=== PATIENT | female | born 1940 | race Two or more races ===

== ENCOUNTER 2024-04-04 16:23 | Inpatient (IN) | payer OTHER ==
[~2024-04-04] VITALS: Ht 152.4 cm; Wt 79.8 kg
[2024-04-04] MEDS: VANCOMYCIN 1GM/250ML KIT 250 ML IV ONE (02:00)
--- NOTE | 2024-04-04 16:35 | ED.PDOC ---
History of Present Illness HPI Comments This is an 83 year old female who comes in with chief complaint of blisters to the lower extremities. The patient was at [facility] where she underwent a cholecystectomy. The patient was then released on 03/25 shortly after she developed some leg swelling as well as blisters and redness to the lower extremities. She denies any chest pain but she does have a chronic cough. Has been no vomiting or diarrhea. The patient was transported to our facility by EMS Time Seen by MD: 16:25 Reviewed Notes: Nurses Notes, Medications, Allergies (No allergies to medications) Allergies: Coded Allergies: NO KNOWN ALLERGIES (Unverified , 04/04/24) Information Source: Patient, Emergency Med Personnel Mode of Arrival: EMS Severity: Moderate Timing: Days Duration: Since onset Prehospital treatment: Accucheck (170), [employer] Nozzle[employer] Associated signs and symptoms Cough with the leg swelling and redness Constitutional: denies: chills, diaphoresis, fatigue, fever, malaise, sweats, weakness, others EENTM: denies: blurred vision, double vision, ear bleeding, ear discharge, ear drainage, ear pain, ear ringing, eye pain, eye redness, hearing loss, mouth pain, mouth swelling, nasal discharge, nose bleeding, nose congestion, nose pain, photophobia, tearing, throat pain, throat swelling, voice changes, others Respiratory: denies: cough, hemoptysis, orthopnea, SOB at rest, shortness of breath, SOB with excertion, stridor, wheezing, others Cardiovascular: denies: chest pain, dizzy spells, diaphoresis, Dyspnea on exertion, edema, irregular heart beat, left arm pain, lightheadedness, palpitations, PND, syncope, others Gastrointestinal: denies: abdomen distended, abdominal pain, blood streaked bowels, constipated, diarrhea, dysphagia, difficulty swallowing, hematemesis, melena, nausea, poor appetite, poor fluid intake, rectal bleeding, rectal pain, vomiting, others Genitourinary: denies: abnormal vagina bleeding, burning, dyspareunia, dysuria, flank pain, frequency, hematuria, incontinence, pain, , vagina discharge, urgency, others Neurological: denies: dizziness, fainting, headache, left sided numbness, left sided weakness, numbness, paresthesia, pre-existing deficit, right sided numbness, right sided weakness, seizure, speech problems, tingling, tremors, weakness, others Musculoskeletal: reports: joint pain (b/l lower extermities); denies: back pain, gout, joint swelling, muscle pain, muscle stiffness, neck pain, others Integumetry: denies: bruises, change in color, change in hair/nails, dryness, laceration, lesions, lumps, rash, wounds, others Allergic/Immunocompromised: denies: Difficulty Healing, Frequent Infections, Hives, Itching, others Hematologic/Lymphatic: denies: anemia, blood clots, easy bleeding, easy b ruising, swollen glands, others Endocrine: denies: excessive hunger, excessive sweating, excessive thirst, excessive urination, flushing, intolerance to cold, intolerance to heat, unexplained weight gain, unexplained weight loss, others Psychiatric: denies: anxiety, bipolar disorder, depression, hopeless, panic disorder, schizophrenia, sleepless, suicidal, others All Other Systems: Reviewed and Negative Physical Exam General Appearance: Moderate Distress HEENT: Normal ENT Inspection, Pharynx Normal, TMs Normal Neck: Full Range of Motion, Non-Tender, Normal, Normal Inspection Respiratory: Chest Non-Tender, Lungs Clear, No Accessory Muscle Use, No Respiratory Distress, Normal Breath Sounds Cardiovascular: No Edema, No JVD, No Murmur, No Gallop, Normal Peripheral Pulses, Regular Rate/Rhythm Breast Exam: Deferred Gastrointestinal: No Organomegaly, Non Tender, No Pulsatile Mass, Normal Bowel Sounds, Soft Genitalia: Deferred Pelvic: Deferred Rectal: Deferred Extremities: No calf tenderness, Normal capillary refill, Normal inspection, Normal range of motion, Non-tender, No pedal edema Musculoskeletal : Apperance: Normal Neurologic: Alert, tufting machine fixer II-XII nml as Tested, No Motor Deficits, Normal Affect, Normal Mood, No Sensory Deficits Cerebellar Function: Normal Reflexes: Normal Skin: Dry, Normal Color, Warm Lymphatic: No Adenopathy Was a procedure done? Was a procedure done?: No EKG EKG : Pulse Rate (adult): 88 Watson: Normal Cardiac Rhythm: Afib Block: None ST: Nonsp Differential Dx Considerations may include: Cellulitis, acute on chronic diastolic heart failure, generalized weakness X-Ray, Labs, Meds, VS Vital Signs Date Time Temp Pulse Resp B/P (MAP) Pulse Ox O2 Delivery O2 Flow Rate FiO2 04/04/24 16:59 88 04/04/24 16:40 88 04/04/24 16:25 97.6 90 18 100/49 (66) 92 Lab Test 04/04/24 19:53 04/04/24 17:48 Range/Units Lactic Acid Level 2.2 *H 2.3 *H 0.4-2.0 mmol/L White Blood Count 13.5 H 4.4-10.8 10^3/uL Red Blood Count 4.38 4.0-5.20 10^6/uL Hemoglobin 11.9 L 12.2-16.2 g/dL Hematocrit 37.1 36.0-46.0 % Mean Corpuscular Volume 84.6 80.0-100.0 fL Mean Corpuscular Hemoglobin 27.1 L 28.0-32.0 pg Mean Corpuscular Hemoglobin Concent 32.0 32.0-36.0 g/dL Red Cell Distribution Width 18.5 H 11.8-14.3 % Platelet Count 410 140-450 10^3/uL Mean Platelet Volume 7.9 6.9-10.8 fL Neutrophils (%) (Auto) 92.7 H 37.0-80.0 % Lymphocytes (%) (Auto) 2.0 L 10.0-50.0 % Monocytes (%) (Auto) 4.6 0.0-12.0 % Eosinophils (%) (Auto) 0.3 0.0-7.0 % Basophils (%) (Auto) 0.4 0.0-2.0 % Neutrophils # (Auto) 12.5 H 1.6-8.6 10 ^3/uL Lymphocytes # (Auto) 0.3 L 0.4-5.4 10 ^3/uL Monocytes # (Auto) 0.6 0-1.3 10 ^3/uL Eosinophils # (Auto) 0 0-0.8 10 ^3/uL Basophils # (Auto) 0.1 0-0.2 10 ^3/uL Nucleated Red Blood Cells 0.2 % Erythrocyte Sedimentation Rate 18 0-20 mm/hr Sodium Level 135 L 136-145 mmol/L Potassium Level 5.0 3.5-5.1 mmol/L Chloride Level 93 L 98-107 mmol/L Carbon Dioxide Level 31 20-31 mmol/L Anion Gap 11 5-15 Blood Urea Nitrogen 91 *H 9-23 mg/dL Creatinine 1.87 H 0.550-1.02 mg/dL Glomerular Filtration Rate Calc 27 >90 mL/min BUN/Creatinine Ratio 48.7 H 10.0-20.0 Serum Glucose 145 H 74-106 mg/dL Calcium Level 9.1 8.7-10.4 mg/dL B-Type Natriuretic Peptide > 5000.00 0-100 pg/mL CHEST RADIOGRAPH IMPRESSION: Mild pulmonary vascular congestion with possible trace left-sided pleural effusion / atelectasis. Questionable tubular structure overlying the right mid lung zone versus th ickened fissure. The patient's BNP is greater than 5000 The patient's troponin level is within normal limits The lactic acid level remains above 2.2 The BUN is 91 the creatinine is 1.87 The patient was not hyperkalemic The patient was being admitted at this time The patient was given Lasix 40 mg IV push Images Reviewed?: Images reviewed and evaluated by me Time of 1ST Reevaluation: 21:30 Reevaluation 1ST: Unchanged Patient Education/Counseling: Diagnosis, Treatment, Prognosis Family Education/Counseling: No Family Present Departure 1 Departure Time of Disposition: 21:29 Impression: Primary Impression: Generalized weakness Additional Impressions: Cellulitis of lower extremity Qualified Codes: L03.119 - Cellulitis of unspecified part of limb Sepsis Qualified Codes: A41.9 - Sepsis, unspecified organism Disposition: ADMITTED INPATIENT Admit to: [facility] Condition: Fair Critical Care Note Critical Care Time?: Yes (45 min-critical care time only) Stability Stability form required: Yes Unstable for transfer: Telemetry monitoring (Telemetry monitoring required), ED Physician Assesment (Clinical assesment) Heart Score Heart Score: Heart Score Response (Comments) Value History N/A 0 EKG N/A 0 Age N/A 0 Risk Factors N/A 0 Troponin N/A 0 Total 0 I personally scribed for AIDAN PALMER MD ([email or web address]) on 04/04/24 at 16:59. Electronically submitted by Jerry Cyr ([employer]). I personally scribed for AIDAN PALMER MD ([email or web address]) on 04/04/24 at 17:01. Electronically submitted by Jerry Cyr ([employer]). IADAN PALMER MD Apr 04, 2024 16:35
--- NOTE | 2024-04-04 16:57 | DVH ---
CHEST RADIOGRAPH Indication: sob Technique: Single frontal view of the chest was obtained Comparison: None FINDINGS: Lines and Tubes: None Lungs: Mild interstitial prominence. No focal consolidation. Indistinctness of the left hemidiaphra gm. Appears to be a tubular structure overlying the right mid lung zone. No pneumothorax. Cardiomediastinal contours: Mild cardiomegaly with moderate atherosclerotic calcification and uncoili ng of the aorta. Bones: No acute osseous abnormality. IMPRESSION: Mild pulmonary vascular congestion with possible trace left-sided pleural effusion / atelectasis. Questionable tubular structure overlying the right mid lung zone versus thickened fissure.
[2024-04-04 18:14] LABS: Anion Gap 11 (5-15); Calcium 9.1 mg/dL (8.7-10.4); Carbon Dioxide 31 mmol/L (20-31)
[2024-04-04 18:19] LABS: BUN/Creatinine Ratio 48.7 (10.0-20.0)
[2024-04-04 18:23] LABS: Basophils # (auto) 0.1 10 ^3/uL (0-0.2); Basophils % (auto) 0.4 % (0.0-2.0); Eosinophils # (auto) 0 10 ^3/uL (0-0.8); Eosinophils % (auto) 0.3 % (0.0-7.0); Hematocrit 37.1 % (36.0-46.0); Hemoglobin 11.9 g/dL (12.2-16.2); Lymphocytes # (auto) 0.3 10 ^3/uL (0.4-5.4); Mean Corpuscular Hemoglobin 27.1 pg (28.0-32.0); Mean Corpuscular Volume 84.6 fL (80.0-100.0); Monocytes # (auto) 0.6 10 ^3/uL (0-1.3); Monocytes % (auto) 4.6 % (0.0-12.0); Neutrophils # (auto) 12.5 10 ^3/uL (1.6-8.6); Neutrophils % (auto) 92.7 % (37.0-80.0); Nucleated Red Blood Cells % 0.2 %; Platelet Count (auto) 410 10^3/uL (140-450); Red Blood Cells 4.38 10^6/uL (4.0-5.20); Red Cell Distribution Width 18.5 % (11.8-14.3); White Blood Cell 13.5 10^3/uL (4.4-10.8)
[2024-04-04 18:36] LABS: Chloride 93 mmol/L (98-107); Glucose 145 mg/dL (74-106); Sodium 135 mmol/L (136-145)
[2024-04-04 18:40] LABS: Lactic Acid w/Reflex 2.3 mmol/L (0.4-2.0)
[2024-04-04 18:41] LABS: Blood Urea Nitrogen 91 mg/dL (9-23)
--- NOTE | 2024-04-04 19:06 | ECG ---
[facility] Test Date: 2024-04-04 Test Time: 16:37:17 Pat Name: NABILA BAUMANN Department: ED Room: [facility] Gender: F [employer]: AMI : 1940 Requested By: AIDAN PALMER Order Number: [id number] Reading MD: Arnel Burnett Measurements Intervals [place] Rate: 88 P: 0 [place]: 0 QRS: 136 QRSD: 112 T: 108 QT: 387 QTc: 469 Interpretive Statements Right and left arm electrode reversal, interpretation assumes no reversal Atrial fibrillation Consider anterior infarct Nonspecific T abnormalities, lateral leads Electronically Signed On 04-05-2024 12:11:12 PST by Arnel Burnett Please click the below link to view image of tracing.
[2024-04-04 19:19] LABS: Erythrocyte Sedimentation Rate 18 mm/hr (0-20)
[2024-04-04] MEDS: cefTRIAXone 1GM/50ML D5W 50 ML IV ONE (22:51)
[2024-04-05] VITALS (8 sets, daily range): BP systolic 105–115; BP diastolic 41–70; PULSE 64–113; RESP 16–20; TEMP 97.5–98.6; O2SAT 85–97
[2024-04-05] MEDS: VANCOMYCIN 1GM/250ML KIT 250 ML IV ONE (02:00)
--- NOTE | 2024-04-05 02:12 | DVHHPRES ---
History of Present Illness Resident Creating Document: JOSEY LOPEZ RESIDENT Reason for Visit: B/L LE cellulitis History of Present Illness 83 YO Female with PMH of Afib presents with bilateral lower extremity swelling and blisters. Symptoms have been present for several days. Patient reports inability to walk for the past several days following a recent cholecystectomy. Patient also reports decreased appetite. Denies fever, cough, shortness of breath, abdominal pain, nausea, vomiting, or urinary/bowel issues. Patient mentions some burning sensation, possibly indicating an infection. No pain or weakness at rest, but reports pain and numbness upon palpation of the legs. Patient has a history of recent cholecystectomy due to gallbladder rupture with adhesions to liver or intestine. Currently has two abdominal drainage tubes in place, which the patient reports get "very full and wet." Cardiovascular: AFIB Past Surgical History Recent cholecystectomy Smoke: No ALCOHOL: none Drugs: None Past Social History Lives in home with son Review of Systems Review of Systems Review of Systems CONSTITUTIONAL: Denies weight loss, fever and chills. HEENT: Denies changes in vision and hearing. RESPIRATORY: Denies SOB and cough. CV: Denies palpitations and chest pain. GI: Denies abdominal pain, nausea, vomiting and diarrhea. : Denies dysuria and urinary frequency. MSK: Leg swelling with blisters, inability to walk, pain and numbness when leg is pressed, SKIN: Leg swelling with blisters, boils on legs NEUROLOGICAL: Denies headache Allergies: Coded Allergies: Erythromycin (Verified Allergy, Severe, 04/05/24) Medications Current Medications Medications Dose Ordered Sig/Darin Route Start Time Stop Time Status Last Admin Dose Admin Sodium Chloride 10 ml Q8HR IV 04/05/24 06:00 Enoxaparin Sodium 40 mg DAILY SC 04/05/24 10:00 Ceftriaxone Sodium 50 ml @ 100 mls/hr Q24H IV 04/05/24 21:00 Exam Vital Signs Vital Signs Date Time Temp Pulse Resp B/P (MAP) Pulse Ox O2 Delivery O2 Flow Rate FiO2 04/05/24 01:17 72 18 93 Room Air 04/05/24 01:17 97.5 113/71 (85) 97.5 Exam GENERAL: Not in acute distress. HEENT: EOMI, Moist mucous membranes. No scleral icterus. No cervical lymphadenopathy. LUNGS: Bilateral crackles on auscultation CARDIOVASCULAR: Regular rate and rhythm. No murmur. No JVD. ABDOMEN: J-tube present for drainage post-cholecystectomy surgery. Two drainage tubes noted in the abdomen. EXTREMITIES: No Leg swelling with blisters, tender on palpation, bilateral pedal edema 3+. SKIN: No rashes or lesions. Warm. NEUROLOGIC: Alert and oriented X3 Labs/Xrays Labs Test 04/04/24 19:53 04/04/24 17:48 Range/Units Lactic Acid Level 2.2 *H 0.4-2.0 mmol/L White Blood Count 13.5 H 4.4-10.8 10^3/uL Red Blood Count 4.38 4.0-5.20 10^6/uL Hemoglobin 11.9 L 12.2-16.2 g/dL Hematocrit 37.1 36.0-46.0 % Mean Corpuscular Volume 84.6 80.0-100.0 fL Mean Corpuscular Hemoglobin 27.1 L 28.0-32.0 pg Mean Corpuscular Hemoglobin Concent 32.0 32.0-36.0 g/dL Red Cell Distribution Width 18.5 H 11.8-14.3 % Platelet Count 410 140-450 10^3/uL Mean Platelet Volume 7.9 6.9-10.8 fL Neutrophils (%) (Auto) 92.7 H 37.0-80.0 % Lymphocytes (%) (Auto) 2.0 L 10.0-50.0 % Monocytes (%) (Auto) 4.6 0.0-12.0 % Eosinophils (%) (Auto) 0.3 0.0-7.0 % Basophils (%) (Auto) 0.4 0.0-2.0 % Neutrophils # (Auto) 12.5 H 1.6-8.6 10 ^3/uL Lymphocytes # (Auto) 0.3 L 0.4-5.4 10 ^3/uL Monocytes # (Auto) 0.6 0-1.3 10 ^3/uL Eosinophils # (Auto) 0 0-0.8 10 ^3/uL Basophils # (Auto) 0.1 0-0.2 10 ^3/uL Nucleated Red Blood Cells 0.2 % Erythrocyte Sedimentation Rate 18 0-20 mm/hr Sodium Level 135 L 136-145 mmol/L Potassium Level 5.0 3.5-5.1 mmol/L Chloride Level 93 L 98-107 mmol/L Carbon Dioxide Level 31 20-31 mmol/L Anion Gap 11 5-15 Blood Urea Nitrogen 91 *H 9-23 mg/dL Creatinine 1.87 H 0.550-1.02 mg/dL Glomerular Filtration Rate Calc 27 >90 mL/min BUN/Creatinine Ratio 48.7 H 10.0-20.0 Serum Glucose 145 H 74-106 mg/dL Calcium Level 9.1 8.7-10.4 mg/dL B-Type Natriuretic Peptide > 5000.00 0-100 pg/mL Assessment/Plan Assessment/Plan Assessment & Plan : # Bilateral Lower Extremity cellulitis with Blisters and Erosions # leukocytosis and lactic acidosis due to bilateral lower leg cellulitis - continue empiric antibiotic IV Rocephin, IV vancomycin - ordered blood culture # possible systolic/diastolic heart failure, new onset - BNP is > 5000 - bilateral pedal edema 3+ - CXR shows: Mild pulmonary vascular congestion with possible trace left-sided pleural effusion. - continue IV Lasix 40 mg daily - ordered echocardiogram # Post-Cholecystectomy Status due to acute cholecystitis - J-tube present for post-operative drainage. 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 Bautista Plan discussed with: Patient My Orders Orders - JOSEY LOPEZ RESIDENT Procedure Category Date Status Time Admit ADMIT 04/05/24 Transmitted 00:22 Allergies SILVA 04/05/24 In Process 00:22 Code Status CODE 04/05/24 Transmitted 00:22 2 Gm Sodium Diet DIET 04/05/24 Transmitted Breakfast Sodium Chloride Lock PHA 04/05/24 In Process (Saline Lock Ns) 06:00 Enoxaparin Sodium PHA 04/05/24 In Process (Lovenox) 10:00 Complete Blood Count LAB 04/05/24 Logged 04:00 Comprehensive LAB 04/05/24 Logged Metabolic Panel 04:00 Echo 2d Mode Cardiac US 04/05/24 Logged DOP 00:22 Lactic Acid W/ Reflex LAB 04/05/24 Logged Order 04:00 Ceftriaxone 1gm/50ml PHA 04/05/24 In Process D5w (Rocephin) 21:00 Date of Service: Apr 05, 2024 Billing Provider: CATIA BAUTISTA MD Common Visit Codes: [id number] INP/OBS CARE (HIGH) JOSEY LOPEZ RESIDENT Apr 05, 2024 02:12 CATIA BAUTISTA MD Apr 07, 2024 15:18
[2024-04-05] MEDS: FUROSEMIDE 40 MG/4 ML VIAL IV ONE (04:03)
[2024-04-05] MEDS: SODIUM CHLOR 0.9% PF (SALINE LOCK) 10ML VIAL/SYR IV SCH (06:04)
[2024-04-05] MEDS ORDERED: VANCOMYCIN PER PHARMACY 0 MG IV SCH ×2 (06:45→11:15)
[2024-04-05 08:21] LABS: Alanine Aminotransferase 53 U/L (7-40); Albumin 3.4 g/dL (3.2-4.8); Alkaline Phosphatase 132 U/L (46-116); Anion Gap 12 (5-15); Aspartate Aminotransferase 100 U/L (13-40); BUN/Creatinine Ratio 41.8 (10.0-20.0); Bilirubin, Total 0.8 mg/dL (0.2-1.0); Blood Urea Nitrogen 74 mg/dL (9-23); Calcium 9.4 mg/dL (8.7-10.4); Carbon Dioxide 29 mmol/L (20-31); Chloride 94 mmol/L (98-107); Glucose 84 mg/dL (74-106); Potassium 4.3 mmol/L (3.5-5.1); Sodium 135 mmol/L (136-145); Total Protein 6.3 g/dL (5.7-8.2)
[2024-04-05 08:33] LABS: Lactic Acid w/Reflex 2.1 mmol/L (0.4-2.0)
[2024-04-05] MEDS: ENOXAPARIN SOD 80 MG/0.8ML SYRINGE SC SCH (08:49)
[2024-04-05] MEDS: FUROSEMIDE 40 MG/4 ML VIAL IV SCH ×2 (08:50→18:36)
[2024-04-05] MEDS ORDERED: ENOXAPARIN SOD 40 MG/0.4 ML SYRINGE SC SCH (10:00)
[2024-04-05 10:10] LABS: Basophils # (auto) 0 10 ^3/uL (0-0.2); Basophils % (auto) 0.1 % (0.0-2.0); Eosinophils # (auto) 0 10 ^3/uL (0-0.8); Eosinophils % (auto) 0.3 % (0.0-7.0); Hematocrit 36.9 % (36.0-46.0); Hemoglobin 11.5 g/dL (12.2-16.2); Lymphocytes # (auto) 0.5 10 ^3/uL (0.4-5.4); Lymphocytes % (auto) 3.3 % (10.0-50.0); Mean Corpuscular Hemoglobin 26.6 pg (28.0-32.0); Mean Corpuscular Hgb Conc. 31.2 g/dL (32.0-36.0); Mean Corpuscular Volume 85.1 fL (80.0-100.0); Monocytes # (auto) 1.7 10 ^3/uL (0-1.3); Monocytes % (auto) 10.2 % (0.0-12.0); Neutrophils # (auto) 13.9 10 ^3/uL (1.6-8.6); Neutrophils % (auto) 86.1 % (37.0-80.0); Platelet Count (auto) 392 10^3/uL (140-450); Red Blood Cells 4.34 10^6/uL (4.0-5.20); Red Cell Distribution Width 18.8 % (11.8-14.3); White Blood Cell 16.1 10^3/uL (4.4-10.8)
[2024-04-05] MEDS ORDERED: BUDE0.253 IN (10:57)
[2024-04-05] MEDS ORDERED: MULT-1018 PO (10:57)
[2024-04-05] MEDS ORDERED: FURO40TA4 PO (10:57)
[2024-04-05] MEDS ORDERED: METO25TA93 PO (10:57)
[2024-04-05] MEDS ORDERED: ACET-1881 PO (10:57)
[2024-04-05] MEDS ORDERED: SODI650T PO (10:57)
[2024-04-05] MEDS ORDERED: APIX2.5T PO (10:57)
[2024-04-05] MEDS ORDERED: DAPA1TAB4 PO (10:57)
[2024-04-05] MEDS ORDERED: ALBUAER3 IN (10:57)
[2024-04-05] MEDS ORDERED: TIOT17SP IN (10:57)
[2024-04-05] MEDS ORDERED: SACU1TAB PO (10:57)
[2024-04-05] MEDS ORDERED: LEVO25TA6 PO (10:57)
[2024-04-05] MEDS ORDERED: DOCU-94 PO (10:57)
[2024-04-05] MEDS ORDERED: ROSU10TA16 PO (10:57)
[2024-04-05] MEDS ORDERED: PRED20TA2 PO (11:01)
[2024-04-05] MEDS ORDERED: FURO20TA3 PO (11:01)
[2024-04-05] MEDS ORDERED: MYC15TP TOP (11:01)
[2024-04-05] MEDS ORDERED: ATOR40TA52 PO (11:01)
[2024-04-05] MEDS ORDERED: FLUC200T50 PO (11:01)
--- NOTE | 2024-04-05 11:36 | DVHPNRES ---
Progress Note Date Seen: Apr 05, 2024 Resident Creating Document: ZANDER WARNER RESIDENT Medical Necessity Reason Pt with a Central, PICC or Fol: No Medical Necessity Reason Blistering condition on her legs and in the mouth Subjective Review of Systems This is an 83-year-old female with a with a past medical history of AFib recent history of cholecystitis status post cholecystectomy presented to the ED with bilateral lower extremity swelling and blisters and also in her mouth. Of the information was gotten from the son who was by the bedside. According to the son by the bedside, mother was admitted at [facility] on February 26, 2024 for cholecystitis status post cholecystectomy complicated by KENNY and other things and patient was finally discharged on March 25. Four days upon returning home, they noticed that patient started developing blistering lesions on her lower extremities. Blisters are painful on her lower extremities and also she says feel some bile on her mouth. Patient also reports decreased appetite. Denies fever, cough, shortness of breath, abdominal pain, nausea, vomiting, or urinary/bowel issues. Patient mentions some burning sensation, possibly indicating an infection. No pain or weakness at rest, but reports pain and numbness upon palpation of the legs. Patient denied any history any autoimmune disease or any history of disease or any family history of any autoimmune disease. Initial vitals in the ED revealed temperature of 97.6, Pulse: 90 RR:18 blood BP:100/49. WBC 13.5 --> 16.1 hemoglobin of 11.9 --> 11.5 platelets 410. Chemistry reveals sodium of 135 potassium of 5 years BUN of 91 creatinine of 1.87 GFR of 27 and hemoglobin A1c of 6.3 and lactic 2.3. Chest x-ray reveals Mild pulmonary vascular congestion with possible trace left-sided pleural effusion / atelectasis. Review of system Constitutional: Denies fever no chills no feeling of malaise HEENT: Denies headache, ear pain, ear discharges, conjunctivitis, But jones in swallowing, and blisters in mouth Cardiovascular: Denies chest pain, palpitation, orthopnea, PND, or pedal edema Respiratory: Denies shortness of breath, cough cough, sputum production, hemoptysis, GI: Denies abdominal pain, nausea, vomiting, diarrhea, hematemesis, hematochezia; has loss of appetite : Denies frequency, urgency, hematuria,No know history of chronic kidney disease Endocrine: Denies unintentional weight gain or weight loss, feeling of hot flashes, Tao: Denies easy bruising, bleeding disorders, epistaxis Musculoskeletal: Denies joint pains, muscle aches Psych: No evidence of depression, gato, suicidal ideation Objective vital signs Vital Sign Date Time Temp Pulse Resp B/P (MAP) Pulse Ox O2 Delivery O2 Flow Rate FiO2 04/05/24 08:56 97.6 95 20 115/41 (65) 90 97.6 04/05/24 07:40 Nasal Cannula* 2 28 Total Intake and Output 04/04/24 04/04/24 04/05/24 15:00 23:00 07:00 Intake Total 490 ml Output Total 400 ml Balance 90 ml medications Current Medications Medications Dose Ordered Sig/Darin Route Start Time Stop Time Status Last Admin Dose Admin Sodium Chloride 10 ml Q8HR IV 04/05/24 06:00 04/05/24 06:04 10 ML Ceftriaxone Sodium 50 ml @ 100 mls/hr Q24H IV 04/05/24 21:00 Furosemide 40 mg DAILY IV 04/05/24 10:00 04/05/24 08:50 40 MG Enoxaparin Sodium 80 mg DAILY SC 04/05/24 10:00 04/05/24 08:49 80 MG Vancomycin HCl 0 ml @ 0 mls/hr UD IV 04/05/24 06:45 Examination General Appearance: Alert, Oriented X3, Cooperative, mild-moderate distress HEENT: Atraumatic, PERRLA, EOMI, Tongue is red and buffy, blister on the left mucus membrane, dry blood on her lips. Respiratory: Clear to auscultation, Normal air movement Cardiovascular: Irregularly irregular rate and rhythm Abdominal: NO distention, no tenderness, bowel sounds present, no scars noted Extremities: pitting edema, in bed Skin: Tender blisters with erythematous base bilateral Neuro: unable to asses at this time Psych/Mental Status: Mental status NL, Mood NL laboratory and microbiology Laboratory Tests 04/05/24 07:18 Test 04/05/24 07:18 Range/Units Serum Glucose 84 74-106 mg/dL Microbiology Date/Time Source Procedure Growth Status 04/04/24 17:48 Blood Blood Culture - Preliminary Resulted Labs and/or images reviewed: Labs reviewed by me, Image(s) reviewed by me Problem List/Assessment/Plan Problem List/Assessment/Plan Sepsis secondary to possible bilateral lower extremity cellulitis Bilateral Lower Extremity cellulitis with Blisters and Erosions rule out pemphigus vulgaris Lactic acidosis - continue empiric antibiotic IV Rocephin, IV vancomycin - blood culture: positive for Gram negative robbi - wound culture - wound care possible systolic/diastolic heart failure, new onset - BNP is > 5000 - bilateral pedal edema 3+ - CXR shows: Mild pulmonary vascular congestion with possible trace left-sided pleural effusion. 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 - Monitor drainage from abdominal tubes - Assess for any post-operative complications Hyponatremia Hypothyroidism prediabetes Status: Full Goal of care discussed for 20 minutes Case and plan discussed with Dr. Price Plan discussed with: Patient, Son, Other (RN) My Orders My Orders Orders - ZANDER WARNER RESIDENT Procedure Category Date Status Time Vancomycin Per PHA 04/05/24 Logged Pharmacy 11:15 Addendum Addendum Addendum I was physically present for the carmona portions of the service provided to patient by THE RESIDENT. I have reviewed the documentation, discussed the case with resident and agree with the resident's documentation except as noted. Also the patient's clinical case was discussed with the patient's nurse. This medical document was created using an electronic medical record system with computerized dictation system. Although this document has been carefully reviewed, there might still be some phonetic and typographical errors. These areas are purely typographical due to imperfections of the software programs, and do not reflect any compromise in the patient's medical care. Late signature. Date of Service: Apr 05, 2024 Billing Provider: AUSTIN PRICE MD Common Visit Codes: [id number] INP/OBS CARE(HIGH) Secondary Visit Codes: [id number] CARE PLAN 30 MINUTES (20 minutes) ZANDER WARNER RESIDENT Apr 05, 2024 11:36 AUSTIN PRICE MD Apr 06, 2024 07:34
--- NOTE | 2024-04-05 17:36 | DVHSR ---
APPROVED REPORT EXAM: Two-dimensional and M-mode echocardiogram with Doppler and color Doppler. Blood Pressure: 110/55 mmHg INDICATION Heart Failure RISK FACTORS Weight: 176 DIMENSIONS LVDd4.5 (3.8-5.7cm)LA (2D)4.8 (1.9-4.0cm)Aortic Root2.8 (2.0-3.7cm) LVDs4.1 (2.5-4.0cm)LA (MM) (1.9-4.0cm)Aortic Cusp Exc1.1 (1.5-2.0cm) EF (%) 24.0 (55-70%)Rt. Atrium5.7 (1.9-4.0cm)Asc. Aorta cm IVSd0.8 (0.7-1.1cm)RV (D)4.2 (1.8-2.4cm) PWd0.5 (0.7-1.1cm) Mitral Valve MitralMitral Stenosis E/A ratio0.02D MVAcm2 Aortic Valve Aortic ValveAortic Stenosis V10.45m/Dash Mean GR.3mmHg V21.18m/Dash Peak GR.6mmHg LVOT Diameter1.7 (1.8-2.4cm)Doppler AVA0.87cm2 2D AVA1.28cm2 AI P 1/2 Enad219.37ms Pulmonic Valve V20.89m/s Tricuspid Valve TR Velocity3.30m/s [id number] Conclusion Technically good study. Undetermined rhythm. Biatrial enlargement. RV enlargement. Mild LVH. Mild mitral annular calcification. Mild aortic sclerosis. Left ventricular function is diminished. EF is 25% with global hypokinesis. Interventricular doming in systole suggest a significant pressure overload from the right ventricle. Mild mitral insufficiency. Moderate tricuspid regurgitation. Pulmonary hypertension noted. No intracardiac masses thrombi or vegetations discernible.
[2024-04-05 20:02] LABS: Lactic Acid w/Reflex 2.2 mmol/L (0.4-2.0)
[2024-04-05] MEDS: cefTRIAXone 1GM/50ML D5W 50 ML IV SCH (22:05)
[2024-04-06] VITALS (8 sets, daily range): BP systolic 99–157; BP diastolic 47–71; PULSE 66–116; RESP 15–19; TEMP 97.4–98.7; O2SAT 96–99
[2024-04-06 04:14] LABS: Urine Bacteria None Seen /hpf (None Seen)
[2024-04-06 04:44] LABS: Urine Blood 3+ /uL (Negative); Urine Clarity Ex.Turbid (Clear); Urine Color Light-Brown (Yellow); Urine Protein, UAD 1+ (Negative); Urine Specific Gravity 1.012 (1.001-1.035); Urine Squamous Epithelial Cell FEW /hpf (<5); Urine Urobilinogen Normal (Negative); Urine WBC 1113 /HPF (0-5); Urine WBC Clumps PRESENT /hpf (None Seen)
[2024-04-06 04:49] LABS: Rapid Influenza A Negative (Negative); Rapid Influenza B Negative (Negative)
[2024-04-06 04:50] LABS: COVID19 ANTIGEN SOFIA FIA NEGATIVE (NEGATIVE)
[2024-04-06 07:03] LABS: Basophils # (auto) 0 10 ^3/uL (0-0.2); Eosinophils # (auto) 0.1 10 ^3/uL (0-0.8); Hemoglobin 11.6 g/dL (12.2-16.2); Lymphocytes # (auto) 0.5 10 ^3/uL (0.4-5.4); Lymphocytes % (auto) 3.4 % (10.0-50.0); Mean Corpuscular Hemoglobin 26.9 pg (28.0-32.0); Monocytes # (auto) 1.6 10 ^3/uL (0-1.3); Nucleated Red Blood Cells % 0.1 %; Red Blood Cells 4.31 10^6/uL (4.0-5.20)
[2024-04-06 07:05] LABS: Basophils % (auto) 0.1 % (0.0-2.0); Eosinophils % (auto) 0.9 % (0.0-7.0); Hematocrit 36.7 % (36.0-46.0); Mean Corpuscular Hgb Conc. 31.6 g/dL (32.0-36.0); Mean Corpuscular Volume 85.1 fL (80.0-100.0); Monocytes % (auto) 11.5 % (0.0-12.0); Neutrophils % (auto) 84.1 % (37.0-80.0); Platelet Count (auto) 297 10^3/uL (140-450); Red Cell Distribution Width 18.6 % (11.8-14.3); White Blood Cell 14.3 10^3/uL (4.4-10.8)
[2024-04-06 07:06] LABS: Anion Gap 13 (5-15); BUN/Creatinine Ratio 48.5 (10.0-20.0); Calcium 8.8 mg/dL (8.7-10.4); Carbon Dioxide 28 mmol/L (20-31); Chloride 100 mmol/L (98-107); Glucose 94 mg/dL (74-106); Magnesium 2.2 mg/dL (1.6-2.6); Potassium 3.8 mmol/L (3.5-5.1); Sodium 141 mmol/L (136-145)
[2024-04-06 07:08] LABS: Bilirubin, Total 0.8 mg/dL (0.2-1.0); Total Protein 5.8 g/dL (5.7-8.2)
[2024-04-06 07:16] LABS: Alanine Aminotransferase 51 U/L (7-40); Albumin 3.1 g/dL (3.2-4.8); Alkaline Phosphatase 127 U/L (46-116); Aspartate Aminotransferase 90 U/L (13-40); Blood Urea Nitrogen 79 mg/dL (9-23)
[2024-04-06] MEDS ORDERED: ENOXAPARIN SOD 80 MG/0.8ML SYRINGE SC SCH (10:00)
[2024-04-06] MEDS: VANCOMYCIN 750MG KIT 100 ML IV ONE (11:53)
[2024-04-06] MEDS: ENOXAPARIN SOD 80 MG/0.8ML SYRINGE SC SCH (11:55)
[2024-04-06] MEDS: FUROSEMIDE 40 MG/4 ML VIAL IV SCH (15:06)
--- NOTE | 2024-04-06 17:54 | DVHPNRES ---
Progress Note Date Seen: Apr 06, 2024 Resident Creating Document: ZANDER WARNER RESIDENT Medical Necessity Reason Pt with a Central, PICC or Fol: No Medical Necessity Reason Blister afib CKD Subjective Review of Systems This is an 83-year-old female with a with a past medical history of AFib recent history of cholecystitis status post cholecystectomy presented to the ED with bilateral lower extremity swelling and blisters and also in her mouth. Of the information was gotten from the son who was by the bedside. According to the son by the bedside, mother was admitted at [facility] on February 26, 2024 for cholecystitis status post cholecystectomy complicated by KENNY and other things and patient was finally discharged on March 25. Four days upon returning home, they noticed that patient started developing blistering lesions on her lower extremities. Blisters are painful on her lower extremities and also she says feel some bile on her mouth. Patient also reports decreased appetite. Denies fever, cough, shortness of breath, abdominal pain, nausea, vomiting, or urinary/bowel issues. Patient mentions some burning sensation, possibly indicating an infection. No pain or weakness at rest, but reports pain and numbness upon palpation of the legs. Patient denied any history any autoimmune disease or any history of disease or any family history of any autoimmune disease. Initial vitals in the ED revealed temperature of 97.6, Pulse: 90 RR:18 blood BP:100/49. WBC 13.5 --> 16.1 hemoglobin of 11.9 --> 11.5 platelets 410. Chemistry reveals sodium of 135 potassium of 5 years BUN of 91 creatinine of 1.87 GFR of 27 and hemoglobin A1c of 6.3 and lactic 2.3. Chest x-ray reveals Mild pulmonary vascular congestion with possible trace left-sided pleural effusion / atelectasis. PN 04/06/2024: Patient seen and examined with children at the bedside. She was not in any acute distress.She mentioned that she is able to drink fluids. Not so tender in her mouth. She felt weak, trying to sit by the edge of the bed to drink her coffee. blood work showed improving WBC. notable blisters on her lower extremity bilateral. Echo report showed EF 25%. Wound ( legs) culture grew Rare growth: Gram Positive Zacarias Still ruling out pathogens. MRSA screen negative. blood culture grew klebsiella oxytoca pending sensitive Objective vital signs Vital Sign Date Time Temp Pulse Resp B/P (MAP) Pulse Ox O2 Delivery O2 Flow Rate FiO2 04/06/24 15:06 114/66 04/06/24 12:50 97.9 105 16 99 97.9 04/05/24 20:00 Nasal Cannula* 3 32 Total Intake and Output 04/05/24 04/05/24 04/06/24 15:00 23:00 07:00 Intake Total 630 ml 0 ml Output Total 1400 ml 1000 ml Balance -770 ml -1000 ml medications Current Medications Medications Dose Ordered Sig/Darin Route Start Time Stop Time Status Last Admin Dose Admin Sodium Chloride 10 ml Q8HR IV 04/05/24 06:00 04/06/24 14:00 10 ML Ceftriaxone Sodium 50 ml @ 100 mls/hr Q24H IV 04/05/24 21:00 04/05/24 22:05 100 MLS/HR Vancomycin HCl 0 ml @ 0 mls/hr UD IV 04/05/24 11:15 Enoxaparin Sodium 80 mg DAILY@0900 SC 04/06/24 09:00 04/06/24 11:55 80 MG Furosemide 40 mg DAILY IV 04/06/24 14:00 04/06/24 15:06 40 MG Examination General Appearance: Alert, Oriented X3, Cooperative, mild distress HEENT: Atraumatic, PERRLA, EOMI, Tongue is red and buffy, blister on the left mucus membrane Respiratory: Clear to auscultation, Normal air movement Cardiovascular: Irregularly irregular rate and rhythm Abdominal: NO distention, no tenderness, bowel sounds present, no scars noted Extremities: pitting edema, in bed Skin: Tender blisters with erythematous base bilateral, Sweeping wet Neuro: unable to asses at this time Psych/Mental Status: Mental status NL, Mood NL laboratory and microbiology Laboratory Tests 04/06/24 06:07 Test 04/06/24 06:07 Range/Units Serum Glucose 94 74-106 mg/dL Microbiology Date/Time Source Procedure Growth Status 04/05/24 16:30 Leg Left Gram Stain Pending Resulted 04/05/24 16:30 Leg Left Wound Culture - Preliminary Resulted 04/04/24 17:48 Blood Blood Culture - Preliminary Resulted Problem List/Assessment/Plan Problem List/Assessment/Plan Sepsis secondary to possible bilateral lower extremity cellulitis Bilateral Lower Extremity cellulitis with Blisters and Erosions rule out pemphigus vulgaris Lactic acidosis - continue empiric antibiotic IV Rocephin, IV vancomycin - blood culture: positive for Gram negative robbi - wound culture: skin zacarias drainage site culture ordered recommend outpatient follow with remedial masseur post discharge Acute on chronic HFr EF - BNP is > 5000 - bilateral pedal edema 3+ - CXR shows: Mild pulmonary vascular congestion with possible trace left-sided pleural effusion. 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 - Monitor drainage from abdominal tubes - Assess for any post-operative complications --> requested for medical and surgical from [facility] Hyponatremia Hypothyroidism prediabetes Anemia transaminitis Status: Full Goal of care discussed for more than 35 minute. Spoke with all 3 children ( a daughter and 2 sons) at bedside around 6:30m-7PM Case and plan discussed with Dr. Farrar. Plan discussed with: Patient My Orders My Orders Orders - ZANDER WARNER Procedure Category Date Status Time Pharmacy [facility] 04/05/24 In Process Clarification: 18:36 Enoxaparin Sodium PHA 04/06/24 In Process (Lovenox) 09:00 Vancomycin,Random LAB 04/07/24 Verified 04:00 Vancomycin Per [facility] 04/06/24 In Process Pharmacy [facility] 11:00 Creatinine LAB 04/07/24 Verified 04:00 Furosemide Injection PHA 04/06/24 In Process (Lasix Injection) 14:00 Cleanse Wound With SILVA 04/06/24 In Process Wound Clean 11:25 *Dr. [facility] CONS 04/06/24 Transmitted -[place] 15:54 * Cardiology Consult CONS 04/06/24 Transmitted 15:54 Date of Service: Apr 06, 2024 Billing Provider: CHELA FARRAR MD Common Visit Codes: [id number] INP/OBS CARE(HIGH) ZANDER WARNER Apr 06, 2024 17:53 CHELA FARRAR MD Apr 07, 2024 09:43
[2024-04-07] VITALS (10 sets, daily range): BP systolic 105–128; BP diastolic 52–81; PULSE 76–137; RESP 14–19; TEMP 97.4–98.2; O2SAT 92–96
--- NOTE | 2024-04-07 08:54 | DVHINCON2 ---
Date Seen: Apr 07, 2024 Referring Physician Cheryl Reason for Consultation Atrial fibrillation, CHF History of Present Illness 83-year-old female with PMH for CAD s/p PCI at [place], HTN, HLD, paroxysmal atrial fibrillation on Eliquis, combined chronic systolic and diastolic HF, AAA s/p endovascular repair, diabetes, emphysema, and history of tobacco use presents to the hospital with increased bilateral lower extremity edema swelling blistering. Patient states lower extremity edema has just been getting worse over the last week. Patient tolerated noted some blistering and drainage. Patient was recently discharged from another facility s/p cholecystectomy. Patient denies any chest pain, palpitations, shortness of breath. Upon evaluation in the ER patient noted to be in atrial fibrillation with RVR, proBNP greater than 5000, elevated LFTs, creatinine 1.87, CXR reviewed mild pulmonary vascular congestion with trace left-sided pleural effusion. EKG reviewed and shows atrial fibrillation at 88 beats per minute PVCs. Past Medical History As above. Past Surgical History As above. Family History Denies pertinent family cardiac history Social History Denies alcohol, tobacco, or illicit drug Allergies: Coded Allergies: Erythromycin (Verified Allergy, Severe, 04/05/24) Home Meds Reported Medications Nystatin-Triamcinolone (Mycolog) 1 Applic Ap, 1 APPLIC TOP QID, #15 GRAMS 1 Refill 04/05/24 Fluconazole (Fluconazole) 200 Mg Tab, 200 MG PO DAILY, MG 04/05/24 Atorvastatin Calcium (ATORVASTATIN CALCIUM) 40 Mg Tab, 1 TAB PO DAILY, #30 TAB 5 Refills 04/05/24 Furosemide (Furosemide) 20 Mg Tab, 20 MG PO BIDD for 30 Days, MG 04/05/24 Prednisone (Prednisone) 20 Mg Tab, 20 MG PO DAILY, MG 04/05/24 Docusate Sodium (Colace) 100 Mg Cap, 1 CAP PO DAILY, #30 CAP 04/05/24 Metoprolol Succinate (Metoprolol Succinate Er) 25 Mg Tab, 50 MG PO DAILY for 30 Days, MG 04/05/24 Levothyroxine Sodium (Levothyroxine Sodium) 25 Mcg Tab, 12.5 MCG PO QAM, MCG 04/05/24 Sacubitril-Valsartan (Entresto 24-26 mg) 1 Tab Tab, 1 TAB PO BID, TAB 04/05/24 Sodium Bicarbonate (Sodium Bicarbonate) 650 Mg Tab, 650 MG PO TID, TAB 04/05/24 Rosuvastatin Calcium (Crestor) 10 Mg Tab, 1 TAB PO DAILY, #30 TAB 5 Refills 04/05/24 Multiple Vitamin (Multivitamins) Tab, 1 TAB PO DAILY, #90 TAB 3 Refills 04/05/24 Apixaban Base (ELIQUIS) 2.5 Mg Tab, 2.5 MG PO BID, TAB 04/05/24 Dapagliflozin Propanediol (Farxiga) 10 Mg Tab, 10 MG PO DAILY, TAB 04/05/24 Furosemide (Furosemide) 40 Mg Tab, 40 MG PO BIDD for 30 Days, MG 04/05/24 Acetaminophen (Acetaminophen) 325 Mg Tab, 500 MG PO TID for 30 Days, MG 0 Refills 04/05/24 Albuterol Sulfate (VENTOLIN MDI) 90 Mcg Ih, 90 MCG IN, INH 04/05/24 Budesonide (Inhalation) (Budesonide) 0.25 Mg/2 Ml [place], 4.5 MCG IN, ML 04/05/24 Tiotropium [place] Monohydrate (Spiriva Respimat) 2.5 Mcg/Act Spr, 2.5 MCG IN, SPRAY 04/05/24 Current Medications Current Medications Medications (Trade) Dose Ordered Sig/Darin Route PRN Reason Start Time Stop Time Status Last Admin Enoxaparin Sodium (Lovenox) 80 mg DAILY SC 04/06/24 10:00 04/06/24 07:45 DC Enoxaparin Sodium (Lovenox) 80 mg DAILY@0900 SC 04/06/24 09:00 04/06/24 17:52 DC 04/06/24 11:55 Furosemide (Lasix Injection) 40 mg DAILY IV 04/06/24 14:00 04/06/24 15:06 Apixaban (Eliquis) 2.5 mg BID PO 04/07/24 10:00 Metoprolol Succinate (Toprol Xl) 50 mg DAILY PO 04/07/24 08:45 UNV Review of Systems Constitutional: No: Fever, Chills, Sweats, , Other positive: Weakness, Malaise Eyes: No: Pain, Vision change, Conjunctivae inflammation, Eyelid inflammation, Other, Redness ENT: No: Ear pain, Ear discharge, Nose pain, Nose discharge, Nose congestion, Mouth pain, Mouth swelling, Throat pain, Throat swelling, Other Respiratory: No: , Shortness of breath, SOB with exertion, Wheezing, Hemoptysis, Pleuritic Pain, Sputum, Wheezing, Other positive: Cough, Dry Cardiovascular: ; No: Chest Pain Palpitations, Orthopnea, Paroxysmal Noc. Dyspnea, , Lt Headedness, Other positive: Lower extremity Edema Gastrointestinal: No: Nausea, Vomiting, Abdominal Pain, Diarrhea, Constipation, Melena, Hematochezia, Other Genitourinary: No Dysuria, No Frequency, No Incontinence, No Hematuria, No Retention, No Other Musculoskeletal: neck pain; No: other, shoulder pain, arm pain, back pain, hand pain, leg pain, foot pain Skin: No: Rash, Lesions, Jaundice, Bruising, Other Neurological: Other (Dizziness, headache.); No: Weakness, Numbness, Incoordination, Change in speech, Confusion, Seizures Vital Signs Vital Signs Date Time Temp Pulse Resp B/P (MAP) Pulse Ox O2 Delivery O2 Flow Rate FiO2 04/07/24 08:19 98.2 128 15 107/59 (75) 96 98.2 04/06/24 20:00 Nasal Cannula* 3 32 Physical Exam General appearance: Ill-appearing, in no acute distress. HEENT: Exam shows: Normocephalic, atraumatic, PERRLA, EOMI Neck: Supple, no bruits Chest: Equal chest excursion bilaterally. Breath sounds crackles. Heart: Rhythm: Regular rate; no murmur or gallop Abdomen: Exam shows: Soft, nontender, nondistended Musculoskeletal: No clubbing, no cyanosis, +3 lower extremity edema Dermatology: Skin warm, moist. Neurological: Exam shows: Alert and oriented x3, normal speech Available prior records, labs, EKG, rhythm strips reviewed and interpreted Labs/Diagnostic Data Labs Test 04/07/24 06:51 04/06/24 09:05 04/06/24 06:07 04/06/24 03:50 Range/Units Creatinine 1.48 H 0.550-1.02 mg/dL Glomerular Filtration Rate Calc 35 >90 mL/min Random Vancomycin Level 17.3 H 5-10 ug/mL Lactic Acid Level 1.5 0.4-2.0 mmol/L White Blood Count 14.3 H 4.4-10.8 10^3/uL Red Blood Count 4.31 4.0-5.20 10^6/uL Hemoglobin 11.6 L 12.2-16.2 g/dL Hematocrit 36.7 36.0-46.0 % Mean Corpuscular Volume 85.1 80.0-100.0 fL Mean Corpuscular Hemoglobin 26.9 L 28.0-32.0 pg Mean Corpuscular Hemoglobin Concent 31.6 L 32.0-36.0 g/dL Red Cell Distribution Width 18.6 H 11.8-14.3 % Platelet Count 297 140-450 10^3/uL Mean Platelet Volume 7.7 6.9-10.8 fL Neutrophils (%) (Auto) 84.1 H 37.0-80.0 % Lymphocytes (%) (Auto) 3.4 L 10.0-50.0 % Monocytes (%) (Auto) 11.5 0.0-12.0 % Eosinophils (%) (Auto) 0.9 0.0-7.0 % Basophils (%) (Auto) 0.1 0.0-2.0 % Neutrophils # (Auto) 12.0 H 1.6-8.6 10 ^3/uL Lymphocytes # (Auto) 0.5 0.4-5.4 10 ^3/uL Monocytes # (Auto) 1.6 H 0-1.3 10 ^3/uL Eosinophils # (Auto) 0.1 0-0.8 10 ^3/uL Basophils # (Auto) 0 0-0.2 10 ^3/uL Nucleated Red Blood Cells 0.1 % Sodium Level 141 # 136-145 mmol/L Potassium Level 3.8 3.5-5.1 mmol/L Chloride Level 100 98-107 mmol/L Carbon Dioxide Level 28 20-31 mmol/L Anion Gap 13 5-15 Blood Urea Nitrogen 79 H 9-23 mg/dL BUN/Creatinine Ratio 48.5 H 10.0-20.0 Serum Glucose 94 74-106 mg/dL Calcium Level 8.8 8.7-10.4 mg/dL Magnesium Level 2.2 1.6-2.6 mg/dL Total Bilirubin 0.8 0.2-1.0 mg/dL Aspartate Amino Transferase (AST) 90 H 13-40 U/L Alanine Aminotransferase (ALT) 51 H 7-40 U/L Alkaline Phosphatase 127 H 46-116 U/L Total Protein 5.8 5.7-8.2 g/dL Albumin 3.1 L 3.2-4.8 g/dL Urine Color Light-brown Yellow Urine Clarity Ex.turbid Clear Urine pH 6.0 5.0-9.0 Urine Specific [place] 1.012 1.001-1.035 Urine Protein 1+ H Negative Urine Ketones Negative Negative Urine Blood 3+ H Negative /uL Urine Nitrite Negative Negative Urine Bilirubin Negative Negative Urine Urobilinogen Normal Negative mg/dL Urine Leukocyte Esterase 2+ Negative /uL Urine RBC 317 0 - 4 /hpf Urine WBC Clumps Present None Seen /hpf Urine Microscopic WBC 1113 H 0-5 /HPF Urine Squamous Epithelial Cells Few <5 /hpf Urine Bacteria None seen None Seen /hpf Urine Glucose Trace Normal mg/dL Test 04/06/24 03:45 04/05/24 07:18 04/04/24 17:48 Range/Units Influenza Type A Antigen Negative Negative Influenza Type B Antigen Negative Negative SARS-CoV-2 Antigen (Rapid) Negative NEGATIVE Hemoglobin A1c 6.3 H <5.7 % A1C Thyroid Stimulating Hormone (TSH) 9.82 H 0.55-4.78 uIU/mL Erythrocyte Sedimentation Rate 18 0-20 mm/hr B-Type Natriuretic Peptide > 5000.00 0-100 pg/mL Microbiology Date/Time Source Procedure Growth Status 04/05/24 16:30 Leg Left Gram Stain Pending Resulted 04/05/24 16:30 Leg Left Wound Culture - Preliminary Resulted 04/04/24 17:48 Blood Blood Culture - Final Klebsiella oxytoca Complete Assessment Chronic Atrial fibrillation with episode of RVR Acute on chronic combined systolic and diastolic HF Sepsis, cellulitis KENNY on CKD Elevated LFTs Plan/Recommendation * Previous EF 40%, follow-up echo this admission shows EF 25% with global hypokinesis, pulmonary hypertension * Continue diuresis with Lasix monitor strict I&Os, fluid restriction. * Continue monitoring kidney function, avoid nephrotoxic agents, monitoring with diuresis. * Restart metoprolol 50 mg p.o. daily. On Eliquis for stroke prophylaxis. * Continue GDMT as tolerated Case Discussed with Dr Staton. Restarted on metoprolol 50 mg p.o. daily. On Eliquis for stroke prophylaxis. Continue rate control. Continue diuresing with Lasix. Critical care, time spent: 40 minutes This medical document was created using an electronic medical record system with voice recognition software and computerized dictation system. Although this document has been carefully reviewed, there might still be some phonetic and typographical errors. Occasional wrong-word or ``sound-alike substitutions may have occurred due to the inherent limitations of voice recognition software. These areas are purely typographical due to imperfections of the software programs and do not reflect any compromise in the patient's medical care. Please read the chart carefully and recognize, using context, where these substitutions have occurred. Thank you for allowing me to participate in the management of this patient. The treatment plan was discussed with and agreed upon by patient/family including requesting consultants and ordering of imaging/procedures. Plan discussed with: Patient NYHA Physical activity limitations: Class3(Marked) ordinary Date of Service: Apr 07, 2024 Billing Provider: ALEJO NIÑO Cardiology Common Codes: [id number] INP/OBS CARE (High), [id number] CARE 30-74 MIN ALEJO NIÑO Apr 07, 2024 08:54
[2024-04-07 09:19] LABS: Basophils # (auto) 0 10 ^3/uL (0-0.2); Basophils % (auto) 0.2 % (0.0-2.0); Eosinophils # (auto) 0.1 10 ^3/uL (0-0.8); Lymphocytes # (auto) 0.4 10 ^3/uL (0.4-5.4); Monocytes # (auto) 1.2 10 ^3/uL (0-1.3)
[2024-04-07 09:21] LABS: Eosinophils % (auto) 0.6 % (0.0-7.0); Hematocrit 36.2 % (36.0-46.0); Hemoglobin 11.3 g/dL (12.2-16.2); Lymphocytes % (auto) 2.3 % (10.0-50.0); Mean Corpuscular Hemoglobin 26.3 pg (28.0-32.0); Mean Corpuscular Hgb Conc. 31.2 g/dL (32.0-36.0); Mean Corpuscular Volume 84.3 fL (80.0-100.0); Monocytes % (auto) 6.5 % (0.0-12.0); Neutrophils # (auto) 16.2 10 ^3/uL (1.6-8.6); Neutrophils % (auto) 90.4 % (37.0-80.0); Platelet Count (auto) 276 10^3/uL (140-450); Red Cell Distribution Width 18.3 % (11.8-14.3); White Blood Cell 17.9 10^3/uL (4.4-10.8)
[2024-04-07 09:34] LABS: Anion Gap 13 (5-15); BUN/Creatinine Ratio 40.4 (10.0-20.0); Bilirubin, Total 0.8 mg/dL (0.2-1.0); Carbon Dioxide 29 mmol/L (20-31); Chloride 102 mmol/L (98-107); Sodium 144 mmol/L (136-145)
[2024-04-07 09:35] LABS: Alanine Aminotransferase 48 U/L (7-40); Albumin 2.9 g/dL (3.2-4.8); Alkaline Phosphatase 122 U/L (46-116); Aspartate Aminotransferase 66 U/L (13-40); Blood Urea Nitrogen 59 mg/dL (9-23); Calcium 8.4 mg/dL (8.7-10.4); Glucose 129 mg/dL (74-106); Potassium 3.1 mmol/L (3.5-5.1); Total Protein 5.5 g/dL (5.7-8.2)
[2024-04-07] MEDS ORDERED: levoFLOXacin 250MG 50 ML IV SCH (10:00)
[2024-04-07] MEDS: METOPROLOL SUCCINATE XL 50 MG TAB PO SCH (10:00)
[2024-04-07] MEDS: APIXABAN 2.5 MG TAB PO SCH (10:07)
--- NOTE | 2024-04-07 12:19 | DVH ---
Exam: CT CT AB PEL WO CON-NO ORAL OR IV History: previous hua at [facility]. Rule out complications Comparison Study: None Technique: Multidetector spiral CT of the abdomen was performed from lung bases to pubic symphysis. Imaging was performed without IV contrast. Axial, coronal and sagittal multiplanar reformats were ob tained from the axial data set by the technologist. Radiation Dose : 1. Abdomen/Pelvis: CTDIvol 15.5 mGy, DLP 767.83 mGy*cm. Findings: Evaluation of solid organs is limited due to lack of intravenous contrast use. Lung Bases: Small bilateral pleural effusions and mild bibasilar atelectasis. Partial visualization o f skin thickening and subcutaneous stranding along the left lateral breast and chest wall. Liver: The liver is normal in size. No focal lesions. Gallbladder and Biliary Tree: Recent postsurgical changes related to cholecystectomy. There is minima l edema at the gallbladder fossa without evidence of an organized collection. A biliary stent is in p lace within the common bile ducts. There is associated pneumobilia. A drainage catheter is in place i n the gallbladder fossa. Spleen: Unremarkable Pancreas: The pancreas is grossly normal in appearance. Adrenal Glands: Unremarkable Kidneys: No evidence hydronephrosis or renal calculi. There are multiple renal cysts as well as hypo densities that attenuate higher than simple fluid and have associated calcifications. The ureters are unremarkable. Bladder: Hurtado catheter is in place. Intravesicular air is consistent with recent instrumentation. Bowel: The stomach is grossly normal in appearance. Small bowel and colon are normal in caliber and d istribution. Mild colonic diverticulosis without evidence of diverticulitis. There is an area of mild focal wall thickening within the sigmoid colon (series 601, image 58). Normal appendix is visualized in the right lower quadrant without findings of appendicitis. Ascites: Absent Lymphadenopathy: No mesenteric, retroperitoneal or periportal lymphadenopathy. Abdominal Wall and Mesentery: Unremarkable. Vasculature: Limited evaluation without intravenous contrast. There is heavy atherosclerosis. An ao rto bi-iliac stent is in place which traverses an infrarenal abdominal aortic aneurysm measuring 4.7 x 4.5 cm. There is a small calcification within the aneurysm which may be associated with mural throm bus. Pelvic Organs: Uterus is not visualized. There is prominence of bilateral low-density adnexal struct ures although these attenuate slightly higher than simple fluid, measuring up to 3.4 cm on the right and 3.8 cm on the left. Musculoskeletal: No evidence of acute osseous abnormalities. Multilevel degenerative disc changes in the visualized spine. IMPRESSION: 1. Exam is limited due to lack of intravenous contrast. 2. Postsurgical changes related to recent cholecystectomy. A surgical drain is in place, and there i s a biliary stent in the CBD. No evidence of complications. 3. Small bilateral pleural effusions and mild bibasilar atelectasis. 4. Nonspecific skin thickening and subcutaneous stranding overlying the left lateral chest and abdom inal wall. This could be due to dependent edema if laying on that side; however, cellulitis is not ex cluded. 5. Mild focal wall thickening in the sigmoid colon. Recommend correlation with routine cancer screen ing. 6. Aorto bi-iliac stent with an infrarenal abdominal aortic aneurysm measuring up to 4.7 cm. 7. Trace pneumoperitoneum is likely related to recent surgery. 8. A couple of renal hypodensities attenuate higher than simple fluid and also have associated calcif ication. Recommend correlation with prior imaging studies. 9. Prominence of bilateral adnexal structures that attenuate slightly higher than simple fluid and me asure up to 3.8 cm on the left. Consider correlation pelvic ultrasound. Radiation optimization: All CT scans at this facility use at least one of these dose optimization luis hniques: automated exposure control mA and/or kV adjustment per patient size (includes targeted exam s where dose is matched to clinical indication) or iterative reconstruction.
[2024-04-07] MEDS: POTASSIUM CHLORIDE 40 MEQ, LIDOCAINE 1% (LOCAL ANESTH.) 4 ML in SODIUM CHL 0.9% 250 ML IV ONE (12:44)
[2024-04-07] MEDS ORDERED: ALBUTEROL SULF 2.5 MG/0.5ML(0.5%) NEB SOLN NEB PRN (15:30)
[2024-04-07] MEDS ORDERED: IPRATROPIUM BROM 0.5 MG/2.5ML INH SOL NEB PRN (15:30)
[2024-04-07] MEDS: levoFLOXacin 250 MG TAB PO SCH (17:03)
--- NOTE | 2024-04-07 19:50 | DVHINCON2 ---
Date of service: Apr 07, 2024 Reason for Consultation nory History of Present Illness 83 years old female with past medical history of atrial fibrillation, Coronary artery disease, hypertension congestive heart post diabetes recent cholecystectomy, history of Acute kidney injury after surgery needing dialysis 2 to 3 weeks in [place] and currently off of dialysis, presented chief complaints of lower bilateral patient's son is also bedside Past Medical History per hpi Past Surgical History per hpi Allergies: Coded Allergies: Erythromycin (Verified Allergy, Severe, 04/05/24) Home Meds Reported Medications Nystatin-Triamcinolone (Mycolog) 1 Applic Ap, 1 APPLIC TOP QID, #15 GRAMS 1 Refill 04/05/24 Fluconazole (Fluconazole) 200 Mg Tab, 200 MG PO DAILY, MG 04/05/24 Atorvastatin Calcium (ATORVASTATIN CALCIUM) 40 Mg Tab, 1 TAB PO DAILY, #30 TAB 5 Refills 04/05/24 Furosemide (Furosemide) 20 Mg Tab, 20 MG PO BIDD for 30 Days, MG 04/05/24 Prednisone (Prednisone) 20 Mg Tab, 20 MG PO DAILY, MG 04/05/24 Docusate Sodium (Colace) 100 Mg Cap, 1 CAP PO DAILY, #30 CAP 04/05/24 Metoprolol Succinate (Metoprolol Succinate Er) 25 Mg Tab, 50 MG PO DAILY for 30 Days, MG 04/05/24 Levothyroxine Sodium (Levothyroxine Sodium) 25 Mcg Tab, 12.5 MCG PO QAM, MCG 04/05/24 Sacubitril-Valsartan (Entresto 24-26 mg) 1 Tab Tab, 1 TAB PO BID, TAB 04/05/24 Sodium Bicarbonate (Sodium Bicarbonate) 650 Mg Tab, 650 MG PO TID, TAB 04/05/24 Rosuvastatin Calcium (Crestor) 10 Mg Tab, 1 TAB PO DAILY, #30 TAB 5 Refills 04/05/24 Multiple Vitamin (Multivitamins) Tab, 1 TAB PO DAILY, #90 TAB 3 Refills 04/05/24 Apixaban Base (ELIQUIS) 2.5 Mg Tab, 2.5 MG PO BID, TAB 04/05/24 Dapagliflozin Propanediol (Farxiga) 10 Mg Tab, 10 MG PO DAILY, TAB 04/05/24 Furosemide (Furosemide) 40 Mg Tab, 40 MG PO BIDD for 30 Days, MG 04/05/24 Acetaminophen (Acetaminophen) 325 Mg Tab, 500 MG PO TID for 30 Days, MG 0 Refills 04/05/24 Albuterol Sulfate (VENTOLIN MDI) 90 Mcg Ih, 90 MCG IN, INH 04/05/24 Budesonide (Inhalation) (Budesonide) 0.25 Mg/2 Ml Krupa, 4.5 MCG IN, ML 04/05/24 Tiotropium [place] Monohydrate (Spiriva Respimat) 2.5 Mcg/Act Spr, 2.5 MCG IN, SPRAY 04/05/24 Current Medications Current Medications Medications (Trade) Dose Ordered Sig/Darin Route PRN Reason Start Time Stop Time Status Last Admin Apixaban (Eliquis) 2.5 mg BID PO 04/07/24 10:00 04/07/24 15:56 DC 04/07/24 10:07 Metoprolol Succinate (Toprol Xl) 50 mg DAILY PO 04/07/24 08:45 04/07/24 10:06 Levofloxacin 50 ml @ 50 mls/hr DAILY IV 04/07/24 10:00 04/07/24 15:28 DC Levofloxacin (Levaquin Tablet) 250 mg DAILY PO 04/07/24 15:30 04/07/24 17:03 Albuterol (Ventolin Medneb) 2.5 mg Q6HPRN PRN NEB SHORTNESS OF BREATH 04/07/24 15:30 Ipratropium [place] (Atrovent Medneb) 0.5 mg Q6HPRN PRN NEB SHORTNESS OF BREATH 04/07/24 15:30 Apixaban (Eliquis) 5 mg BID PO 04/07/24 22:00 Social History denies any Review of Systems Per HPI H&P Exam Vital Signs/I&O Vital Sign Date Time Temp Pulse Resp B/P (MAP) Pulse Ox O2 Delivery O2 Flow Rate FiO2 04/07/24 16:24 97.8 109 15 105/55 (72) 95 97.8 04/07/24 15:39 3.0 04/06/24 20:00 Nasal Cannula* 32 Intake and Output 04/06/24 04/07/24 19:00 07:00 Intake Total 550 ml 950 ml Output Total 1500 ml 1200 ml Balance -950 ml -250 ml Intake Oral 450 ml 900 ml IV Total 100 ml 50 ml Output Urine Total 1500 ml 1200 ml # Bowel Movements 1 Physical Exam General-not in any distress HEENT-normocephalic, no icterus, no pallor, neck supple Respiratory-fair air entry bilateral, [id number] heard, Abdominal-soft, Musculoskeletal- ++ pedal edema, no calf tenderness Genitourinary-deferred Neuro-awake alert oriented x3, Psychiatric-not agitated, cooperative, Labs/Diagnostic Data Labs/Diagnostic Data Laboratory Tests Test 04/07/24 06:51 04/06/24 09:05 04/06/24 06:07 04/06/24 03:50 Range/Units White Blood Count 17.9 #H 14.3 H 4.4-10.8 10^3/uL Red Blood Count 4.30 4.31 4.0-5.20 10^6/uL Hemoglobin 11.3 L 11.6 L 12.2-16.2 g/dL Hematocrit 36.2 36.7 36.0-46.0 % Mean Corpuscular Volume 84.3 85.1 80.0-100.0 fL Mean Corpuscular Hemoglobin 26.3 L 26.9 L 28.0-32.0 pg Mean Corpuscular Hemoglobin Concent 31.2 L 31.6 L 32.0-36.0 g/dL Red Cell Distribution Width 18.3 H 18.6 H 11.8-14.3 % Platelet Count 276 297 140-450 10^3/uL Mean Platelet Volume 8.0 7.7 6.9-10.8 fL Neutrophils (%) (Auto) 90.4 H 84.1 H 37.0-80.0 % Lymphocytes (%) (Auto) 2.3 L 3.4 L 10.0-50.0 % Monocytes (%) (Auto) 6.5 11.5 0.0-12.0 % Eosinophils (%) (Auto) 0.6 0.9 0.0-7.0 % Basophils (%) (Auto) 0.2 0.1 0.0-2.0 % Neutrophils # (Auto) 16.2 H 12.0 H 1.6-8.6 10 ^3/uL Lymphocytes # (Auto) 0.4 0.5 0.4-5.4 10 ^3/uL Monocytes # (Auto) 1.2 1.6 H 0-1.3 10 ^3/uL Eosinophils # (Auto) 0.1 0.1 0-0.8 10 ^3/uL Basophils # (Auto) 0 0 0-0.2 10 ^3/uL Nucleated Red Blood Cells 0.0 0.1 % Sodium Level 144 141 # 136-145 mmol/L Potassium Level 3.1 L 3.8 3.5-5.1 mmol/L Chloride Level 102 100 98-107 mmol/L Carbon Dioxide Level 29 28 20-31 mmol/L Anion Gap 13 13 5-15 Blood Urea Nitrogen 59 #H 79 H 9-23 mg/dL Creatinine 1.46 H 1.63 H 0.550-1.02 mg/dL Glomerular Filtration Rate Calc 36 31 >90 mL/min BUN/Creatinine Ratio 40.4 H 48.5 H 10.0-20.0 Serum Glucose 129 H 94 74-106 mg/dL Calcium Level 8.4 L 8.8 8.7-10.4 mg/dL Total Bilirubin 0.8 0.8 0.2-1.0 mg/dL Aspartate Amino Transferase (AST) 66 H 90 H 13-40 U/L Alanine Aminotransferase (ALT) 48 H 51 H 7-40 U/L Alkaline Phosphatase 122 H 127 H 46-116 U/L Total Protein 5.5 L 5.8 5.7-8.2 g/dL Albumin 2.9 L 3.1 L 3.2-4.8 g/dL Random Vancomycin Level 17.3 H 10.6 H 5-10 ug/mL Lactic Acid Level 1.5 0.4-2.0 mmol/L Magnesium Level 2.2 1.6-2.6 mg/dL Urine Color Light-brown Yellow Urine Clarity Ex.turbid Clear Urine pH 6.0 5.0-9.0 Urine Specific [place] 1.012 1.001-1.035 Urine Protein 1+ H Negative Urine Ketones Negative Negative Urine Blood 3+ H Negative /uL Urine Nitrite Negative Negative Urine Bilirubin Negative Negative Urine Urobilinogen Normal Negative mg/dL Urine Leukocyte Esterase 2+ Negative /uL Urine RBC 317 0 - 4 /hpf Urine WBC Clumps Present None Seen /hpf Urine Microscopic WBC 1113 H 0-5 /HPF Urine Squamous Epithelial Cells Few <5 /hpf Urine Bacteria None seen None Seen /hpf Urine Glucose Trace Normal mg/dL Test 04/06/24 03:45 04/05/24 20:24 04/05/24 18:20 04/05/24 07:18 Range/Units Influenza Type A Antigen Negative Negative Influenza Type B Antigen Negative Negative SARS-CoV-2 Antigen (Rapid) Negative NEGATIVE Lactic Acid Level 2.1 *H 2.2 *H 2.1 *H 0.4-2.0 mmol/L White Blood Count 16.1 H 4.4-10.8 10^3/uL Red Blood Count 4.34 4.0-5.20 10^6/uL Hemoglobin 11.5 L 12.2-16.2 g/dL Hematocrit 36.9 36.0-46.0 % Mean Corpuscular Volume 85.1 80.0-100.0 fL Mean Corpuscular Hemoglobin 26.6 L 28.0-32.0 pg Mean Corpuscular Hemoglobin Concent 31.2 L 32.0-36.0 g/dL Red Cell Distribution Width 18.8 H 11.8-14.3 % Platelet Count 392 140-450 10^3/uL Mean Platelet Volume 8.1 6.9-10.8 fL Neutrophils (%) (Auto) 86.1 H 37.0-80.0 % Lymphocytes (%) (Auto) 3.3 L 10.0-50.0 % Monocytes (%) (Auto) 10.2 0.0-12.0 % Eosinophils (%) (Auto) 0.3 0.0-7.0 % Basophils (%) (Auto) 0.1 0.0-2.0 % Neutrophils # (Auto) 13.9 H 1.6-8.6 10 ^3/uL Lymphocytes # (Auto) 0.5 0.4-5.4 10 ^3/uL Monocytes # (Auto) 1.7 H 0-1.3 10 ^3/uL Eosinophils # (Auto) 0 0-0.8 10 ^3/uL Basophils # (Auto) 0 0-0.2 10 ^3/uL Nucleated Red Blood Cells 0.0 % Sodium Level 135 L 136-145 mmol/L Potassium Level 4.3 3.5-5.1 mmol/L Chloride Level 94 L 98-107 mmol/L Carbon Dioxide Level 29 20-31 mmol/L Anion Gap 12 5-15 Blood Urea Nitrogen 74 #H 9-23 mg/dL Creatinine 1.77 H 0.550-1.02 mg/dL Glomerular Filtration Rate Calc 29 >90 mL/min BUN/Creatinine Ratio 41.8 H 10.0-20.0 Serum Glucose 84 74-106 mg/dL Hemoglobin A1c 6.3 H <5.7 % A1C Calcium Level 9.4 8.7-10.4 mg/dL Total Bilirubin 0.8 0.2-1.0 mg/dL Aspartate Amino Transferase (AST) 100 H 13-40 U/L Alanine Aminotransferase (ALT) 53 H 7-40 U/L Alkaline Phosphatase 132 H 46-116 U/L Total Protein 6.3 5.7-8.2 g/dL Albumin 3.4 3.2-4.8 g/dL Thyroid Stimulating Hormone (TSH) 9.82 H 0.55-4.78 uIU/mL Test 04/04/24 19:53 04/04/24 17:48 Range/Units Lactic Acid Level 2.2 *H 2.3 *H 0.4-2.0 mmol/L White Blood Count 13.5 H 4.4-10.8 10^3/uL Red Blood Count 4.38 4.0-5.20 10^6/uL Hemoglobin 11.9 L 12.2-16.2 g/dL Hematocrit 37.1 36.0-46.0 % Mean Corpuscular Volume 84.6 80.0-100.0 fL Mean Corpuscular Hemoglobin 27.1 L 28.0-32.0 pg Mean Corpuscular Hemoglobin Concent 32.0 32.0-36.0 g/dL Red Cell Distribution Width 18.5 H 11.8-14.3 % Platelet Count 410 140-450 10^3/uL Mean Platelet Volume 7.9 6.9-10.8 fL Neutrophils (%) (Auto) 92.7 H 37.0-80.0 % Lymphocytes (%) (Auto) 2.0 L 10.0-50.0 % Monocytes (%) (Auto) 4.6 0.0-12.0 % Eosinophils (%) (Auto) 0.3 0.0-7.0 % Basophils (%) (Auto) 0.4 0.0-2.0 % Neutrophils # (Auto) 12.5 H 1.6-8.6 10 ^3/uL Lymphocytes # (Auto) 0.3 L 0.4-5.4 10 ^3/uL Monocytes # (Auto) 0.6 0-1.3 10 ^3/uL Eosinophils # (Auto) 0 0-0.8 10 ^3/uL Basophils # (Auto) 0.1 0-0.2 10 ^3/uL Nucleated Red Blood Cells 0.2 % Erythrocyte Sedimentation Rate 18 0-20 mm/hr Sodium Level 135 L 136-145 mmol/L Potassium Level 5.0 3.5-5.1 mmol/L Chloride Level 93 L 98-107 mmol/L Carbon Dioxide Level 31 20-31 mmol/L Anion Gap 11 5-15 Blood Urea Nitrogen 91 *H 9-23 mg/dL Creatinine 1.87 H 0.550-1.02 mg/dL Glomerular Filtration Rate Calc 27 >90 mL/min BUN/Creatinine Ratio 48.7 H 10.0-20.0 Serum Glucose 145 H 74-106 mg/dL Calcium Level 9.1 8.7-10.4 mg/dL B-Type Natriuretic Peptide > 5000.00 0-100 pg/mL Microbiology Date/Time Source Procedure Growth Status 04/04/24 17:48 Blood Blood Culture - Final Klebsiella oxytoca Complete Assessment Acute kidney injury on Chronic kidney disease IIIb hemodynamic mediated etiology setting of severe sepsis History of Acute kidney injury needing dialysis in [place] in January 2024 currently off of dialysis Sepsis bacteremia Anasarca Congestive heart failure exacerbation Recommendations Agree with diuretics IV lasix given significant pedal edema Renally dose antibiotics CT scan no hydronephrosis We will follow closely Plan discussed with: Patient, Son ALICE DELEON MD Apr 07, 2024 19:50
[2024-04-07] MEDS: APIXABAN 5 MG TAB PO SCH (20:55)
--- NOTE | 2024-04-07 21:33 | DVHPN2 ---
Subjective The patient is seen and examined at bedside. No complaint today. Still have blister of the leg. Reviewed: Care Plan, H&P, Labs, Medications, Previous Orders, Radiology Changes from previous H/P or p: No Changes Objective Vitals Vital Signs Date Time Temp Pulse Resp B/P (MAP) Pulse Ox O2 Delivery O2 Flow Rate FiO2 04/07/24 21:00 97.4 124 19 123/81 (95) 95 97.4 04/07/24 20:08 Nasal Cannula* 1 24 Intake/Output Intake and Output 04/07/24 07:00 Intake Total 1500 ml Output Total 2700 ml Balance -1200 ml Intake Oral 1350 ml IV Total 150 ml Output Urine Total 2700 ml # Bowel Movements 1 General Appearance: Alert, Cooperative, No acute distress HEENT: Atraumatic, PERRLA, EOMI, Mucous membr. moist/pink Neck: Supple Lungs: Clear to auscultation, Normal air movement Cardiovascular: Regular rate, Normal S1, Normal S2, No murmurs, Gallops, Rubs Abdomen: Normal bowel sounds, Soft, No tenderness Neuro: Cranial nerves 3-12 NL Psych/Mental Status: Mental status NL Medications Current Medications Medications Dose Ordered Sig/Darin Route Start Time Stop Time Status Last Admin Dose Admin Sodium Chloride 10 ml Q8HR IV 04/05/24 06:00 04/07/24 21:08 10 ML Vancomycin HCl 0 ml @ 0 mls/hr UD IV 04/05/24 11:15 Furosemide 40 mg DAILY IV 04/06/24 14:00 04/07/24 10:07 40 MG Metoprolol Succinate 50 mg DAILY PO 04/07/24 08:45 04/07/24 10:06 50 MG Levofloxacin 250 mg DAILY PO 04/07/24 15:30 04/07/24 17:03 250 MG Albuterol 2.5 mg Q6HPRN PRN NEB 04/07/24 15:30 Ipratropium [place] 0.5 mg Q6HPRN PRN NEB 04/07/24 15:30 Apixaban 5 mg BID PO 04/07/24 22:00 04/07/24 20:55 5 MG Laboratory Results Laboratory Tests 04/07/24 06:51 Chemistry Test 04/07/24 06:51 Albumin 2.9 g/dL (3.2-4.8) L Calcium Level 8.4 mg/dL (8.7-10.4) L Total Protein 5.5 g/dL (5.7-8.2) L LFT Test 04/07/24 06:51 Alanine Aminotransferase (ALT) 48 U/L (7-40) H Alkaline Phosphatase 122 U/L (46-116) H Aspartate Amino Transferase (AST) 66 U/L (13-40) H Total Bilirubin 0.8 mg/dL (0.2-1.0) Urinalysis Test 04/06/24 03:50 Urine Color Light-brown (Yellow) Urine Clarity Ex.turbid (Clear) Urine pH 6.0 (5.0-9.0) Urine Specific [place] 1.012 (1.001-1.035) Urine Protein 1+ (Negative) H Urine Ketones Negative (Negative) Urine Blood 3+ /uL (Negative) H Urine Nitrite Negative (Negative) Urine Bilirubin Negative (Negative) Urine Urobilinogen Normal mg/dL (Negative) Urine Leukocyte Esterase 2+ /uL (Negative) Urine RBC 317 /hpf (0 - 4) Urine WBC Clumps Present /hpf (None Seen) Urine Microscopic WBC 1113 /HPF (0-5) H Urine Squamous Epithelial Cells Few /hpf (<5) Urine Bacteria None seen /hpf (None Seen) Urine Glucose Trace mg/dL (Normal) Microbiology Microbiology Date/Time Source Procedure Growth Status 04/06/24 18:19 Drainage Gram Stain - Final Resulted 04/06/24 18:19 Drainage Wound Culture - Preliminary Resulted 04/05/24 16:30 Leg Left Gram Stain - Final Resulted 04/05/24 16:30 Leg Left Wound Culture - Preliminary Resulted 04/04/24 17:48 Blood Blood Culture - Final Klebsiella oxytoca Complete Labs and/or images reviewed: Labs reviewed by me Assessment/Plan Assessment/Plan Sepsis secondary to possible bilateral lower extremity cellulitis Bilateral Lower Extremity cellulitis with Blisters and Erosions rule out pemphigus vulgaris Lactic acidosis - continue empiric antibiotic . We will change to Levaquin 500 mg p.o. daily. Discontinuing vancomycin and Rocephin for questionable allergic reaction - blood culture: positive for Gram negative robbi - wound culture: skin zacarias drainage site culture ordered recommend outpatient follow with [facility] post discharge Acute on chronic HFr EF - BNP is > 5000 - bilateral pedal edema 3+ - CXR shows: Mild pulmonary vascular congestion with possible trace left-sided pleural effusion. - continue IV Lasix 40 mg daily - echocardiogram --> 25% - recommend Cardiology consult Atrial Fibrillation ( over a year per children) Continue Eliquis 5mg bid KENNY on possible CKD due to VMN - avoid nephrotoxic medication - monitor renal function -- recent history of dialysis at [place] [facility] ( per children) --> Recommend nephrology consult Post-Cholecystectomy Status due to acute cholecystitis at [facility] ( 01/2024-02/2024) - J-tube present for post-operative drainage. - Monitor drainage from abdominal tubes - Assess for any post-operative complications --> requested for medical and surgical from [place] Hyponatremia Hypothyroidism prediabetes Anemia transaminitis Plan discussed with: Patient My Orders Orders - CHELA CADENA MD Procedure Category Date Status Time Ct Ab Pel Wo Con-No CT 04/07/24 Resulted Oral Or Iv 09:54 Levofloxacin Tablet PHA 04/07/24 In Process (Levaquin Tablet) 15:30 Albuterol Medneb PHA 04/07/24 In Process (Ventolin Medneb) 15:30 Ipratropium Medneb PHA 04/07/24 In Process (Atrovent Medneb) 15:30 Date of Service: Apr 07, 2024 Billing Provider: CHELA CADENA MD Common Visit Codes: [id number] INP/OBS CARE(HIGH) CHELA CADENA MD Apr 07, 2024 21:33
--- NOTE | 2024-04-07 22:50 | DVHINCON2 ---
Date Seen: Apr 07, 2024 Referring Physician Cheryl Reason for Consultation Atrial fibrillation, CHF History of Present Illness This ia an 83-year-old female with PMH of CAD s/p PCI at [place], HTN, HLD, paroxysmal atrial fibrillation on Eliquis, combined chronic systolic and diastolic HF, AAA s/p endovascular repair, diabetes, emphysema, and history of tobacco use presented to the ED with increased bilateral lower extremity edema swelling blistering. Patient states lower extremity edema has just been getting worse over the last week. Patient tolerated noted some blistering and drainage. Patient was recently discharged from another facility s/p cholecystectomy. Christa ent denies any chest pain, palpitations, shortness of breath. Upon evaluation in the ED patient noted to be in atrial fibrillation with RVR, proBNP greater than 5000, elevated LFTs, creatinine 1.87. Chest x-ray shows mild pulmonary vascular congestion with trace left-sided pleural effusion. EKG reviewed and shows atrial fibrillation at 88 beats per minute PVCs. Past Medical History As above. Past Surgical History As above. Allergies: Coded Allergies: Erythromycin (Verified Allergy, Severe, 04/05/24) Home Meds Reported Medications Nystatin-Triamcinolone (Mycolog) 1 Applic Ap, 1 APPLIC TOP QID, #15 GRAMS 1 Refill 04/05/24 Fluconazole (Fluconazole) 200 Mg Tab, 200 MG PO DAILY, MG 04/05/24 Atorvastatin Calcium (ATORVASTATIN CALCIUM) 40 Mg Tab, 1 TAB PO DAILY, #30 TAB 5 Refills 04/05/24 Furosemide (Furosemide) 20 Mg Tab, 20 MG PO BIDD for 30 Days, MG 04/05/24 Prednisone (Prednisone) 20 Mg Tab, 20 MG PO DAILY, MG 04/05/24 Docusate Sodium (Colace) 100 Mg Cap, 1 CAP PO DAILY, #30 CAP 04/05/24 Metoprolol Succinate (Metoprolol Succinate Er) 25 Mg Tab, 50 MG PO DAILY for 30 Days, MG 04/05/24 Levothyroxine Sodium (Levothyroxine Sodium) 25 Mcg Tab, 12.5 MCG PO QAM, MCG 04/05/24 Sacubitril-Valsartan (Entresto 24-26 mg) 1 Tab Tab, 1 TAB PO BID, TAB 04/05/24 Sodium Bicarbonate (Sodium Bicarbonate) 650 Mg Tab, 650 MG PO TID, TAB 04/05/24 Rosuvastatin Calcium (Crestor) 10 Mg Tab, 1 TAB PO DAILY, #30 TAB 5 Refills 04/05/24 Multiple Vitamin (Multivitamins) Tab, 1 TAB PO DAILY, #90 TAB 3 Refills 04/05/24 Apixaban Base (ELIQUIS) 2.5 Mg Tab, 2.5 MG PO BID, TAB 04/05/24 Dapagliflozin Propanediol (Farxiga) 10 Mg Tab, 10 MG PO DAILY, TAB 04/05/24 Furosemide (Furosemide) 40 Mg Tab, 40 MG PO BIDD for 30 Days, MG 04/05/24 Acetaminophen (Acetaminophen) 325 Mg Tab, 500 MG PO TID for 30 Days, MG 0 Refills 04/05/24 Albuterol Sulfate (VENTOLIN MDI) 90 Mcg Ih, 90 MCG IN, INH 04/05/24 Budesonide (Inhalation) (Budesonide) 0.25 Mg/2 Ml Krupa, 4.5 MCG IN, ML 04/05/24 Tiotropium [place] Monohydrate (Spiriva Respimat) 2.5 Mcg/Act Spr, 2.5 MCG IN, SPRAY 04/05/24 Current Medications Current Medications Medications (Trade) Dose Ordered Sig/Darin Route PRN Reason Start Time Stop Time Status Last Admin Apixaban (Eliquis) 2.5 mg BID PO 04/07/24 10:00 04/07/24 15:56 DC 04/07/24 10:07 Metoprolol Succinate (Toprol Xl) 50 mg DAILY PO 04/07/24 08:45 04/07/24 10:06 Levofloxacin 50 ml @ 50 mls/hr DAILY IV 04/07/24 10:00 04/07/24 15:28 DC Levofloxacin (Levaquin Tablet) 250 mg DAILY PO 04/07/24 15:30 04/07/24 17:03 Albuterol (Ventolin Medneb) 2.5 mg Q6HPRN PRN NEB SHORTNESS OF BREATH 04/07/24 15:30 Ipratropium [place] (Atrovent Medneb) 0.5 mg Q6HPRN PRN NEB SHORTNESS OF BREATH 04/07/24 15:30 Apixaban (Eliquis) 5 mg BID PO 04/07/24 22:00 Review of Systems Constitutional: No: Fever, Chills, Sweats, , Other positive: Weakness, Malaise Eyes: No: Pain, Vision change, Conjunctivae inflammation, Eyelid inflammation, Other, Redness ENT: No: Ear pain, Ear discharge, Nose pain, Nose discharge, Nose congestion, Mouth pain, Mouth swelling, Throat pain, Throat swelling, Other Respiratory: No: , Shortness of breath, SOB with exertion, Wheezing, Hemoptysis, Pleuritic Pain, Sputum, Wheezing, Other positive: Cough, Dry Cardiovascular: ; No: Chest Pain Palpitations, Orthopnea, Paroxysmal Noc. Dyspnea, , Lt Headedness, Other positive: Lower extremity Edema Gastrointestinal: No: Nausea, Vomiting, Abdominal Pain, Diarrhea, Constipation, Melena, Hematochezia, Other Genitourinary: No Dysuria, No Frequency, No Incontinence, No Hematuria, No Retention, No Other Musculoskeletal: neck pain; No: other, shoulder pain, arm pain, back pain, hand pain, leg pain, foot pain Skin: No: Rash, Lesions, Jaundice, Bruising, Other Neurological: Other (Dizziness, headache.); No: Weakness, Numbness, Incoordination, Change in speech, Confusion, Seizures Vital Signs Vital Signs Date Time Temp Pulse Resp B/P (MAP) Pulse Ox O2 Delivery O2 Flow Rate FiO2 04/07/24 16:24 97.8 109 15 105/55 (72) 95 97.8 04/07/24 15:39 3.0 04/06/24 20:00 Nasal Cannula* 32 Physical Exam GENERAL: Awake, alert, oriented. Ill appearing. LUNGS: Clear. CARDIOVASCULAR: Heart sounds are good. ABDOMEN: Soft. EXT: +3 pitting edema. Labs/Diagnostic Data Labs Test 04/07/24 06:51 04/06/24 09:05 04/06/24 06:07 04/06/24 03:50 Range/Units White Blood Count 17.9 #H 4.4-10.8 10^3/uL Red Blood Count 4.30 4.0-5.20 10^6/uL Hemoglobin 11.3 L 12.2-16.2 g/dL Hematocrit 36.2 36.0-46.0 % Mean Corpuscular Volume 84.3 80.0-100.0 fL Mean Corpuscular Hemoglobin 26.3 L 28.0-32.0 pg Mean Corpuscular Hemoglobin Concent 31.2 L 32.0-36.0 g/dL Red Cell Distribution Width 18.3 H 11.8-14.3 % Platelet Count 276 140-450 10^3/uL Mean Platelet Volume 8.0 6.9-10.8 fL Neutrophils (%) (Auto) 90.4 H 37.0-80.0 % Lymphocytes (%) (Auto) 2.3 L 10.0-50.0 % Monocytes (%) (Auto) 6.5 0.0-12.0 % Eosinophils (%) (Auto) 0.6 0.0-7.0 % Basophils (%) (Auto) 0.2 0.0-2.0 % Neutrophils # (Auto) 16.2 H 1.6-8.6 10 ^3/uL Lymphocytes # (Auto) 0.4 0.4-5.4 10 ^3/uL Monocytes # (Auto) 1.2 0-1.3 10 ^3/uL Eosinophils # (Auto) 0.1 0-0.8 10 ^3/uL Basophils # (Auto) 0 0-0.2 10 ^3/uL Nucleated Red Blood Cells 0.0 % Sodium Level 144 136-145 mmol/L Potassium Level 3.1 L 3.5-5.1 mmol/L Chloride Level 102 98-107 mmol/L Carbon Dioxide Level 29 20-31 mmol/L Anion Gap 13 5-15 Blood Urea Nitrogen 59 #H 9-23 mg/dL Creatinine 1.46 H 0.550-1.02 mg/dL Glomerular Filtration Rate Calc 36 >90 mL/min BUN/Creatinine Ratio 40.4 H 10.0-20.0 Serum Glucose 129 H 74-106 mg/dL Calcium Level 8.4 L 8.7-10.4 mg/dL Total Bilirubin 0.8 0.2-1.0 mg/dL Aspartate Amino Transferase (AST) 66 H 13-40 U/L Alanine Aminotransferase (ALT) 48 H 7-40 U/L Alkaline Phosphatase 122 H 46-116 U/L Total Protein 5.5 L 5.7-8.2 g/dL Albumin 2.9 L 3.2-4.8 g/dL Random Vancomycin Level 17.3 H 5-10 ug/mL Lactic Acid Level 1.5 0.4-2.0 mmol/L Magnesium Level 2.2 1.6-2.6 mg/dL Urine Color Light-brown Yellow Urine Clarity Ex.turbid Clear Urine pH 6.0 5.0-9.0 Urine Specific [place] 1.012 1.001-1.035 Urine Protein 1+ H Negative Urine Ketones Negative Negative Urine Blood 3+ H Negative /uL Urine Nitrite Negative Negative Urine Bilirubin Negative Negative Urine Urobilinogen Normal Negative mg/dL Urine Leukocyte Esterase 2+ Negative /uL Urine RBC 317 0 - 4 /hpf Urine WBC Clumps Present None Seen /hpf Urine Microscopic WBC 1113 H 0-5 /HPF Urine Squamous Epithelial Cells Few <5 /hpf Urine Bacteria None seen None Seen /hpf Urine Glucose Trace Normal mg/dL Test 04/06/24 03:45 04/05/24 07:18 04/04/24 17:48 Range/Units Influenza Type A Antigen Negative Negative Influenza Type B Antigen Negative Negative SARS-CoV-2 Antigen (Rapid) Negative NEGATIVE Hemoglobin A1c 6.3 H <5.7 % A1C Thyroid Stimulating Hormone (TSH) 9.82 H 0.55-4.78 uIU/mL Erythrocyte Sedimentation Rate 18 0-20 mm/hr B-Type Natriuretic Peptide > 5000.00 0-100 pg/mL Microbiology Date/Time Source Procedure Growth Status 04/06/24 18:19 Drainage Gram Stain - Final Resulted 04/06/24 18:19 Drainage Wound Culture - Preliminary Resulted 04/05/24 16:30 Leg Left Gram Stain - Final Resulted 04/05/24 16:30 Leg Left Wound Culture - Preliminary Resulted 04/04/24 17:48 Blood Blood Culture - Final Klebsiella oxytoca Complete Assessment Chronic Atrial fibrillation with episode of RVR. Acute on chronic combined systolic and diastolic HF. Sepsis, cellulitis. KENNY on CKD. Elevated LFTs. Plan/Recommendation I agree with your ongoing assessment and care of plan. Patient has been seen by Thaddeus Hagen NP on my behalf, him and I discussed the plan with the patient. Previous EF 40%, follow-up echo this admission shows EF 25% with global hypokinesis, pulmonary hypertension. Continue diuresis with Lasix. Monitor strict I&Os. Fluid restriction. Continue monitoring kidney function, avoid nephrotoxic agents, monitoring with diuresis. Restart metoprolol 50 mg p.o. daily. On Eliquis for stroke prophylaxis. Continue GDMT as tolerated Additional plan as per the hospital course. Plan discussed with: Patient NYHA Physical activity limitations: Class3(Marked) ordinary Date of Service: Apr 07, 2024 Billing Provider: TUYET PACE MD Cardiology Common Codes: 46967-[id number] INP/OBS CARE (High), 13079-[id number] CARE 30-74 MIN TUYET PACE MD Apr 07, 2024 17:29
[2024-04-08] VITALS (12 sets, daily range): BP systolic 99–116; BP diastolic 51–74; PULSE 68–120; RESP 18–20; TEMP 97.7–98.4; O2SAT 95–99
[2024-04-08 07:56] LABS: Chloride 104 mmol/L (98-107); Sodium 143 mmol/L (136-145)
[2024-04-08 07:57] LABS: Anion Gap 11 (5-15); Carbon Dioxide 28 mmol/L (20-31)
[2024-04-08 07:58] LABS: Basophils # (auto) 0 10 ^3/uL (0-0.2); Eosinophils # (auto) 0.1 10 ^3/uL (0-0.8); Lymphocytes # (auto) 0.5 10 ^3/uL (0.4-5.4); Mean Corpuscular Hemoglobin 26.5 pg (28.0-32.0); Neutrophils # (auto) 18.7 10 ^3/uL (1.6-8.6); Red Cell Distribution Width 18.7 % (11.8-14.3); White Blood Cell 20.9 10^3/uL (4.4-10.8)
[2024-04-08 07:59] LABS: Eosinophils % (auto) 0.5 % (0.0-7.0); Hematocrit 36.1 % (36.0-46.0); Hemoglobin 11.3 g/dL (12.2-16.2); Lymphocytes % (auto) 2.5 % (10.0-50.0); Mean Corpuscular Hgb Conc. 31.2 g/dL (32.0-36.0); Monocytes # (auto) 1.6 10 ^3/uL (0-1.3); Monocytes % (auto) 7.6 % (0.0-12.0); Neutrophils % (auto) 89.4 % (37.0-80.0); Platelet Count (auto) 234 10^3/uL (140-450); Red Blood Cells 4.25 10^6/uL (4.0-5.20)
[2024-04-08 08:02] LABS: BUN/Creatinine Ratio 27.4 (10.0-20.0)
[2024-04-08 08:05] LABS: Blood Urea Nitrogen 37 mg/dL (9-23); Calcium 8.6 mg/dL (8.7-10.4); Glucose 132 mg/dL (74-106); Potassium 3.1 mmol/L (3.5-5.1)
--- NOTE | 2024-04-08 11:24 | DVHPN2 ---
Subjective The patient is seen and examined at bedside. No complaint today. The blister of the leg is heal and resolved. Reviewed: Care Plan, H&P, Labs, Medications, Previous Orders, Radiology Changes from previous H/P or p: No Changes Objective Vitals Vital Signs Date Time Temp Pulse Resp B/P (MAP) Pulse Ox O2 Delivery O2 Flow Rate FiO2 04/08/24 10:18 111 109/73 04/08/24 09:41 98 Nasal Cannula 2.0 04/08/24 09:41 28 04/08/24 08:49 97.7 20 97.7 Intake/Output Intake and Output 04/08/24 07:00 Intake Total 1274 ml Output Total 2000 ml Balance -726 ml Intake Oral 1000 ml IV Total 274 ml Output Urine Total 2000 ml # Bowel Movements 3 General Appearance: Alert, Cooperative, No acute distress HEENT: Atraumatic, PERRLA, EOMI, Mucous membr. moist/pink Neck: Supple Lungs: Clear to auscultation, Normal air movement Cardiovascular: Regular rate, Normal S1, Normal S2, No murmurs, Gallops, Rubs Abdomen: Normal bowel sounds, Soft, No tenderness Neuro: Cranial nerves 3-12 NL Psych/Mental Status: Mental status NL Medications Current Medications Medications Dose Ordered Sig/Darin Route Start Time Stop Time Status Last Admin Dose Admin Sodium Chloride 10 ml Q8HR IV 04/05/24 06:00 04/08/24 05:13 10 ML Vancomycin HCl 0 ml @ 0 mls/hr UD IV 04/05/24 11:15 Furosemide 40 mg DAILY IV 04/06/24 14:00 04/08/24 10:17 40 MG Metoprolol Succinate 50 mg DAILY PO 04/07/24 08:45 04/08/24 10:18 50 MG Levofloxacin 250 mg DAILY PO 04/07/24 15:30 04/08/24 10:17 250 MG Albuterol 2.5 mg Q6HPRN PRN NEB 04/07/24 15:30 Ipratropium [place] 0.5 mg Q6HPRN PRN NEB 04/07/24 15:30 Apixaban 5 mg BID PO 04/07/24 22:00 04/08/24 10:18 5 MG Laboratory Results Laboratory Tests 04/08/24 06:32 Chemistry Test 04/08/24 06:32 Calcium Level 8.6 mg/dL (8.7-10.4) L Urinalysis Test 04/06/24 03:50 Urine Color Light-brown (Yellow) Urine Clarity Ex.turbid (Clear) Urine pH 6.0 (5.0-9.0) Urine Specific [place] 1.012 (1.001-1.035) Urine Protein 1+ (Negative) H Urine Ketones Negative (Negative) Urine Blood 3+ /uL (Negative) H Urine Nitrite Negative (Negative) Urine Bilirubin Negative (Negative) Urine Urobilinogen Normal mg/dL (Negative) Urine Leukocyte Esterase 2+ /uL (Negative) Urine RBC 317 /hpf (0 - 4) Urine WBC Clumps Present /hpf (None Seen) Urine Microscopic WBC 1113 /HPF (0-5) H Urine Squamous Epithelial Cells Few /hpf (<5) Urine Bacteria None seen /hpf (None Seen) Urine Glucose Trace mg/dL (Normal) Microbiology Microbiology Date/Time Source Procedure Growth Status 04/06/24 18:19 Drainage Gram Stain - Final Resulted 04/06/24 18:19 Drainage Wound Culture - Preliminary Resulted 04/05/24 16:30 Leg Left Gram Stain - Final Resulted 04/05/24 16:30 Leg Left Wound Culture - Preliminary Resulted 04/04/24 17:48 Blood Blood Culture - Final Klebsiella oxytoca Complete Labs and/or images reviewed: Labs reviewed by me Assessment/Plan Assessment/Plan Sepsis secondary to possible bilateral lower extremity cellulitis Bilateral Lower Extremity cellulitis with Blisters and Erosions rule out pemphigus vulgaris Lactic acidosis - continue empiric antibiotic . We will change to Levaquin 500 mg p.o. daily. Discontinuing vancomycin and Rocephin for questionable allergic reaction - blood culture: positive for Klebsiela oxytoca, sensitive to levaquin. - wound culture: skin zacarias drainage site culture ordered recommend outpatient follow with delivery route driver post discharge We will repeat blood culture in a.m.. Acute on chronic HFr EF - BNP is > 5000 - bilateral pedal edema 3+ - CXR shows: Mild pulmonary vascular congestion with possible trace left-sided pleural effusion. - continue IV Lasix 40 mg daily - echocardiogram --> 25% - recommend Cardiology consult Atrial Fibrillation ( over a year per children) Continue Eliquis 5mg bid KENNY on possible CKD due to VMN - avoid nephrotoxic medication - monitor renal function -- recent history of dialysis at [place] ( per children) --> Recommend nephrology consult Post-Cholecystectomy Status due to acute cholecystitis at [facility] ( 01/2024-02/2024) - J-tube present for post-operative drainage. - Monitor drainage from abdominal tubes - Assess for any post-operative complications --> requested for medical and surgical from [place] Hyponatremia Hypothyroidism prediabetes Anemia transaminitis This medical document was created using an electronic medical record system with [employer] computerized dictation system. Although this document has been carefully reviewed, there may still be some phonetic and typographical errors. These areas are purely typographical due to imperfections of the software programs, and do not reflect any compromise in the patient's medical care. Plan discussed with: Patient My Orders Orders - CHELA CADENA MD Procedure Category Date Status Time Levofloxacin Tablet PHA 04/07/24 In Process (Levaquin Tablet) 15:30 Albuterol Medneb PHA 04/07/24 In Process (Ventolin Medneb) 15:30 Ipratropium Medneb PHA 04/07/24 In Process (Atrovent Medneb) 15:30 Date of Service: Apr 08, 2024 Billing Provider: CHELA CADENA MD Common Visit Codes: [id number] INP/OBS CARE(HIGH) CHELA CADENA MD Apr 08, 2024 11:24
--- NOTE | 2024-04-08 12:58 | DVHPN2 ---
Progress Note Date Seen: Apr 08, 2024 Medical Necessity Reason Pt with a Central, PICC or Fol: No Subjective Patient reports: No new complaints Other Systems: Patient seen and examined by myself today in follow-up Objective vital signs Vital Sign Date Time Temp Pulse Resp B/P (MAP) Pulse Ox O2 Delivery O2 Flow Rate FiO2 04/08/24 10:18 111 109/73 04/08/24 09:41 98 Nasal Cannula 2.0 04/08/24 09:41 28 04/08/24 08:49 97.7 20 97.7 Total Intake and Output 04/07/24 04/07/24 04/08/24 15:00 23:00 07:00 Intake Total 1074 ml 200 ml Output Total 1100 ml 900 ml Balance -26 ml -700 ml medications Current Medications Medications Dose Ordered Sig/Darin Route Start Time Stop Time Status Last Admin Dose Admin Sodium Chloride 10 ml Q8HR IV 04/05/24 06:00 04/08/24 05:13 10 ML Vancomycin HCl 0 ml @ 0 mls/hr UD IV 04/05/24 11:15 Furosemide 40 mg DAILY IV 04/06/24 14:00 04/08/24 10:17 40 MG Metoprolol Succinate 50 mg DAILY PO 04/07/24 08:45 04/08/24 10:18 50 MG Levofloxacin 250 mg DAILY PO 04/07/24 15:30 04/08/24 10:17 250 MG Albuterol 2.5 mg Q6HPRN PRN NEB 04/07/24 15:30 Ipratropium [place] 0.5 mg Q6HPRN PRN NEB 04/07/24 15:30 Apixaban 5 mg BID PO 04/07/24 22:00 04/08/24 10:18 5 MG Examination: LUNGS:Normal, CVS:Normal, MSK:Abnormal laboratory and microbiology Laboratory Tests 04/08/24 06:32 Test 04/08/24 06:32 Range/Units Serum Glucose 132 H 74-106 mg/dL Microbiology Date/Time Source Procedure Growth Status 04/06/24 18:19 Drainage Gram Stain - Final Resulted 04/06/24 18:19 Drainage Wound Culture - Preliminary Resulted 04/05/24 16:30 Leg Left Gram Stain - Final Resulted 04/05/24 16:30 Leg Left Wound Culture - Preliminary Resulted 2/6/25 17:48 Blood Blood Culture - Final Klebsiella oxytoca Complete Problem List/Assessment/Plan Problem List/Assessment/Plan Acute kidney injury on Chronic kidney disease IIIb hemodynamic mediated etiology setting of severe sepsis History of Acute kidney injury needing dialysis in [place] in January 2024 currently off of dialysis Sepsis bacteremia, Klebsiella Urinary tract infection Anasarca Congestive heart failure exacerbation Recommendations Kidney function is improving Increased urine output Strict I&Os IV antibiotics I agree with diuresis No hydronephrosis seen on the CT scan of the abdomen We will continue to follow up Plan discussed with: Patient FAVIAN BURCH MD Apr 08, 2024 12:58
[2024-04-08] MEDS: VANCOMYCIN 1GM/250ML KIT 250 ML IV ONE (16:13)
--- NOTE | 2024-04-08 21:51 | DVHPN2 ---
Progress Note - Dictate Date Seen: Apr 08, 2024 Medical Necessity Reason Pt with a Central, PICC or Fol: No Subjective Patient was seen and evaluated in follow up. No new complaints. Patient has increased urine output. WBC 20, K 3.1, BUN 37, Refractive Surgeon 1.35. Blood culture grew Klebsiella oxytoca. Telemetry reviewed. vital signs Vital Sign Date Time Temp Pulse Resp B/P (MAP) Pulse Ox O2 Delivery O2 Flow Rate FiO2 04/08/24 21:00 98.4 118 19 99/57 (71) 98 98.4 04/08/24 20:59 Nasal Cannula 2.0 04/08/24 20:59 28 Total Intake and Output 04/07/24 04/07/24 04/08/24 15:00 23:00 07:00 Intake Total 1074 ml 200 ml Output Total 1100 ml 900 ml Balance -26 ml -700 ml medications Current Medications Medications Dose Ordered Sig/Darin Route Start Time Stop Time Status Last Admin Dose Admin Sodium Chloride 10 ml Q8HR IV 04/05/24 06:00 04/08/24 21:42 10 ML Vancomycin HCl 0 ml @ 0 mls/hr UD IV 04/05/24 11:15 Furosemide 40 mg DAILY IV 04/06/24 14:00 04/08/24 10:17 40 MG Metoprolol Succinate 50 mg DAILY PO 04/07/24 08:45 04/08/24 10:18 50 MG Levofloxacin 250 mg DAILY PO 04/07/24 15:30 04/08/24 10:17 250 MG Albuterol 2.5 mg Q6HPRN PRN NEB 04/07/24 15:30 Ipratropium [place] 0.5 mg Q6HPRN PRN NEB 04/07/24 15:30 Apixaban 5 mg BID PO 04/07/24 22:00 04/08/24 21:43 5 MG objective GENERAL: Awake, alert, oriented. Ill appearing. LUNGS: Clear. CARDIOVASCULAR: Heart sounds are good. ABDOMEN: Soft. EXT: +3 pitting edema. laboratory and microbiology Laboratory Tests 04/08/24 06:32 Test 04/08/24 06:32 Range/Units Serum Glucose 132 H 74-106 mg/dL Problem List Chronic Atrial fibrillation with episode of RVR. Acute on chronic combined systolic and diastolic HF. Sepsis, cellulitis. KENNY on CKD. Elevated LFTs. Assessment/Plan Continued all current supportive medical care. Eliquis. Diuretics with Lasix. Metoprolol. IV antibiotics as ordered. Additional plan as per the hospital course. Plan discussed with: Patient TUYET PACE MD Apr 08, 2024 21:51
[2024-04-09] VITALS (11 sets, daily range): BP systolic 45–119; BP diastolic 40–63; PULSE 83–119; RESP 16–20; TEMP 97.3–97.6; O2SAT 93–97
[2024-04-09 07:13] LABS: Basophils # (auto) 0 10 ^3/uL (0-0.2); Eosinophils # (auto) 0.2 10 ^3/uL (0-0.8); Lymphocytes # (auto) 0.9 10 ^3/uL (0.4-5.4); Lymphocytes % (auto) 5.7 % (10.0-50.0); Mean Corpuscular Hgb Conc. 30.5 g/dL (32.0-36.0); Monocytes # (auto) 1.7 10 ^3/uL (0-1.3)
[2024-04-09 07:20] LABS: Basophils % (auto) 0.3 % (0.0-2.0); Eosinophils % (auto) 1.6 % (0.0-7.0); Hematocrit 34.9 % (36.0-46.0); Hemoglobin 10.6 g/dL (12.2-16.2); Mean Corpuscular Hemoglobin 25.8 pg (28.0-32.0); Mean Corpuscular Volume 84.7 fL (80.0-100.0); Monocytes % (auto) 10.9 % (0.0-12.0); Neutrophils # (auto) 12.7 10 ^3/uL (1.6-8.6); Neutrophils % (auto) 81.5 % (37.0-80.0); Nucleated Red Blood Cells % 0.2 %; Platelet Count (auto) 222 10^3/uL (140-450); Red Blood Cells 4.12 10^6/uL (4.0-5.20); Red Cell Distribution Width 18.7 % (11.8-14.3); White Blood Cell 15.5 10^3/uL (4.4-10.8)
--- NOTE | 2024-04-09 13:26 | DVHPN2 ---
Reviewed: Care Plan, H&P, Labs, Medications, Previous Orders, Radiology Changes from previous H/P or p: No Changes General: Per HPI Objective Vitals Vital Signs Date Time Temp Pulse Resp B/P (MAP) Pulse Ox O2 Delivery O2 Flow Rate FiO2 04/09/24 10:00 97 Nasal Cannula* 2 28 04/09/24 09:29 118/45 04/09/24 09:28 83 04/09/24 09:00 97.3 20 97.3 Intake/Output Intake and Output 04/09/24 07:00 Intake Total 700 ml Output Total 700 ml Balance 0 ml Intake Oral 550 ml IV Total 150 ml Output Urine Total 700 ml # Bowel Movements 2 General Appearance: Alert, Cooperative, No acute distress HEENT: Atraumatic, PERRLA, EOMI, Mucous membr. moist/pink Neck: Supple Lungs: Clear to auscultation, Normal air movement Cardiovascular: Regular rate, Normal S1, Normal S2, No murmurs, Gallops, Rubs Abdomen: Normal bowel sounds, Soft, No tenderness Neuro: Cranial nerves 3-12 NL Psych/Mental Status: Mental status NL Medications Current Medications Medications Dose Ordered Sig/Darin Route Start Time Stop Time Status Last Admin Dose Admin Sodium Chloride 10 ml Q8HR IV 04/05/24 06:00 04/09/24 05:53 10 ML Vancomycin HCl 0 ml @ 0 mls/hr UD IV 04/05/24 11:15 Furosemide 40 mg DAILY IV 04/06/24 14:00 04/09/24 09:29 40 MG Metoprolol Succinate 50 mg DAILY PO 04/07/24 08:45 04/09/24 09:28 50 MG Levofloxacin 250 mg DAILY PO 04/07/24 15:30 04/09/24 09:28 250 MG Albuterol 2.5 mg Q6HPRN PRN NEB 04/07/24 15:30 Ipratropium [place] 0.5 mg Q6HPRN PRN NEB 04/07/24 15:30 Apixaban 5 mg BID PO 04/07/24 22:00 04/09/24 09:28 5 MG Laboratory Results Laboratory Tests 04/08/24 06:32 04/09/24 04:52 Urinalysis Test 04/06/24 03:50 Urine Color Light-brown (Yellow) Urine Clarity Ex.turbid (Clear) Urine pH 6.0 (5.0-9.0) Urine Specific [place] 1.012 (1.001-1.035) Urine Protein 1+ (Negative) H Urine Ketones Negative (Negative) Urine Blood 3+ /uL (Negative) H Urine Nitrite Negative (Negative) Urine Bilirubin Negative (Negative) Urine Urobilinogen Normal mg/dL (Negative) Urine Leukocyte Esterase 2+ /uL (Negative) Urine RBC 317 /hpf (0 - 4) Urine WBC Clumps Present /hpf (None Seen) Urine Microscopic WBC 1113 /HPF (0-5) H Urine Squamous Epithelial Cells Few /hpf (<5) Urine Bacteria None seen /hpf (None Seen) Urine Glucose Trace mg/dL (Normal) Microbiology Microbiology Date/Time Source Procedure Growth Status 04/06/24 18:19 Drainage Gram Stain - Final Resulted 04/06/24 18:19 Wound Culture - Preliminary Klebsiella oxytoca Staphylococcus aureus Resulted 04/05/24 16:30 Leg Left Gram Stain - Final Complete 04/05/24 16:30 Wound Culture - Final Staphylococcus aureus Complete 04/04/24 17:48 Blood Blood Culture - Final Klebsiella oxytoca Complete Assessment/Plan Assessment/Plan Sepsis secondary to possible bilateral lower extremity cellulitis Bilateral Lower Extremity cellulitis with Blisters and Erosions rule out pemphigus vulgaris Lactic acidosis - continue empiric antibiotic . On Levaquin 500 mg p.o. daily. Discontinuing vancomycin and Rocephin for questionable allergic reaction - blood culture: positive for Klebsiela oxytoca, sensitive to levaquin. - wound culture: skin zacarias drainage site culture ordered recommend outpatient follow with zanjero post discharge We will repeat blood culture in a.m.. Acute on chronic HFr EF - BNP is > 5000 - bilateral pedal edema 3+ - CXR shows: Mild pulmonary vascular congestion with possible trace left-sided pleural effusion. 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 - Monitor drainage from abdominal tubes - Assess for any post-operative complications --> requested for medical and surgical from [place] Hyponatremia Hypothyroidism prediabetes Anemia transaminitis weakness unable to ambulate/ 04/09/2024: continue with IV Abx for cellulitis This medical document was created using an electronic medical record system with [employer] direct computerized dictation system. Although this document has been carefully reviewed, there may still be some phonetic and typographical errors. These areas are purely typographical due to imperfections of the software programs, and do not reflect any compromise in the patient's medical care. Plan discussed with: Patient Date of Service: Apr 09, 2024 Billing Provider: ANDREE BARNES DO Common Visit Codes: [id number] INP/OBS CARE(HIGH) ANDREE BARNES DO Apr 09, 2024 13:26
--- NOTE | 2024-04-09 13:44 | DVHPN2 ---
Progress Note Date Seen: Apr 09, 2024 Medical Necessity Reason Pt with a Central, PICC or Fol: No Subjective Patient reports: No new complaints Other Systems: Patient seen and examined by myself today in follow-up Objective vital signs Vital Sign Date Time Temp Pulse Resp B/P (MAP) Pulse Ox O2 Delivery O2 Flow Rate FiO2 04/09/24 10:00 97 Nasal Cannula* 2 28 04/09/24 09:29 118/45 04/09/24 09:28 83 04/09/24 09:00 97.3 20 97.3 Total Intake and Output 04/08/24 04/08/24 04/09/24 15:00 23:00 07:00 Intake Total 350 ml 350 ml Output Total 400 ml 300 ml Balance -50 ml 50 ml medications Current Medications Medications Dose Ordered Sig/Darin Route Start Time Stop Time Status Last Admin Dose Admin Sodium Chloride 10 ml Q8HR IV 04/05/24 06:00 04/09/24 05:53 10 ML Vancomycin HCl 0 ml @ 0 mls/hr UD IV 04/05/24 11:15 Furosemide 40 mg DAILY IV 04/06/24 14:00 04/09/24 09:29 40 MG Metoprolol Succinate 50 mg DAILY PO 04/07/24 08:45 04/09/24 09:28 50 MG Levofloxacin 250 mg DAILY PO 04/07/24 15:30 04/09/24 09:28 250 MG Albuterol 2.5 mg Q6HPRN PRN NEB 04/07/24 15:30 Ipratropium [place] 0.5 mg Q6HPRN PRN NEB 04/07/24 15:30 Apixaban 5 mg BID PO 04/07/24 22:00 04/09/24 09:28 5 MG Examination: LUNGS:Normal, CVS:Normal, MSK:Normal laboratory and microbiology Laboratory Tests 04/09/24 04:52 04/08/24 06:32 Test 04/08/24 06:32 Range/Units Serum Glucose 132 H 74-106 mg/dL Microbiology Date/Time Source Procedure Growth Status 04/06/24 18:19 Drainage Gram Stain - Final Resulted 04/06/24 18:19 Wound Culture - Preliminary Klebsiella oxytoca Staphylococcus aureus Resulted 04/05/24 16:30 Leg Left Gram Stain - Final Complete 04/05/24 16:30 Wound Culture - Final Staphylococcus aureus Complete 04/04/24 17:48 Blood Blood Culture - Final Klebsiella oxytoca Complete Problem List/Assessment/Plan Problem List/Assessment/Plan Acute kidney injury on Chronic kidney disease IIIb hemodynamic mediated etiology setting of severe sepsis History of Acute kidney injury needing dialysis in [place] in January 2024 currently off of dialysis Sepsis bacteremia, Klebsiella Urinary tract infection Anasarca Hypokalemia Congestive heart failure exacerbation Recommendations Kidney function is improving Increased urine output Strict I&Os IV antibiotics I agree with diuresis KCL replacement No hydronephrosis seen on the CT scan of the abdomen We will continue to follow up Plan discussed with: Patient FAVIAN BURCH MD Apr 09, 2024 13:44
[2024-04-09] MEDS: POTASSIUM CHL 20MEQ/100ML 100 ML IV SCH (15:31)
--- NOTE | 2024-04-09 17:05 | DVHPN2 ---
Progress Note - Dictate Date Seen: Apr 09, 2024 Medical Necessity Reason Pt with a Central, PICC or Fol: No Subjective Patient was seen and evaluated in follow up. No overnight events. Patient denies any pain or discomfort. WBC 15.5, Welding Inspector 1.15. Patients potassium was replaced. Telemetry reviewed. vital signs Vital Sign Date Time Temp Pulse Resp B/P (MAP) Pulse Ox O2 Delivery O2 Flow Rate FiO2 04/09/24 13:00 97.5 94 18 97/40 (59) 97 97.5 04/09/24 10:00 Nasal Cannula* 2 28 Total Intake and Output 04/08/24 04/08/24 04/09/24 15:00 23:00 07:00 Intake Total 350 ml 350 ml Output Total 400 ml 300 ml Balance -50 ml 50 ml medications Current Medications Medications Dose Ordered Sig/Darin Route Start Time Stop Time Status Last Admin Dose Admin Sodium Chloride 10 ml Q8HR IV 04/05/24 06:00 04/09/24 14:00 10 ML Vancomycin HCl 0 ml @ 0 mls/hr UD IV 04/05/24 11:15 Furosemide 40 mg DAILY IV 04/06/24 14:00 04/09/24 09:29 40 MG Metoprolol Succinate 50 mg DAILY PO 04/07/24 08:45 04/09/24 09:28 50 MG Levofloxacin 250 mg DAILY PO 04/07/24 15:30 04/09/24 09:28 250 MG Albuterol 2.5 mg Q6HPRN PRN NEB 04/07/24 15:30 Ipratropium [place] 0.5 mg Q6HPRN PRN NEB 04/07/24 15:30 Apixaban 5 mg BID PO 04/07/24 22:00 04/09/24 09:28 5 MG Potassium Chloride 100 ml @ 50 mls/hr Q2H IV 04/09/24 13:45 04/09/24 17:44 04/09/24 15:31 50 MLS/HR objective GENERAL: Awake, alert, oriented. Ill appearing. LUNGS: Clear. CARDIOVASCULAR: Heart sounds are good. ABDOMEN: Soft. EXT: +3 pitting edema. laboratory and microbiology Laboratory Tests 04/09/24 04:52 04/08/24 06:32 Test 04/08/24 06:32 Range/Units Serum Glucose 132 H 74-106 mg/dL Problem List Chronic Atrial fibrillation with episode of RVR. Acute on chronic combined systolic and diastolic HF. Sepsis, cellulitis. KENNY on CKD. Elevated LFTs. Assessment/Plan Continued all current supportive medical care. Eliquis. Diuretics with Lasix. Metoprolol. IV antibiotics as ordered. Additional plan as per the hospital course. Plan discussed with: Patient TUYET PACE MD Apr 09, 2024 17:04
[2024-04-10] VITALS (11 sets, daily range): BP systolic 95–117; BP diastolic 44–61; PULSE 50–127; RESP 16–20; TEMP 97.5–98.5; O2SAT 91–98
--- NOTE | 2024-04-10 11:24 | DVHPN2 ---
Progress Note Date Seen: Apr 10, 2024 Medical Necessity Reason Pt with a Central, PICC or Fol: No Subjective Patient reports: No new complaints Other Systems: Patient seen and examined by myself today in follow-up Objective vital signs Vital Sign Date Time Temp Pulse Resp B/P (MAP) Pulse Ox O2 Delivery O2 Flow Rate FiO2 04/10/24 10:00 97 Nasal Cannula 2.0 04/10/24 10:00 28 04/10/24 09:17 97 99/53 04/10/24 08:59 97.5 20 97.5 Total Intake and Output 04/09/24 04/09/24 04/10/24 14:59 22:59 06:59 Intake Total 580 ml 400 ml Output Total 725 ml 300 ml Balance -145 ml 100 ml medications Current Medications Medications Dose Ordered Sig/Darin Route Start Time Stop Time Status Last Admin Dose Admin Sodium Chloride 10 ml Q8HR IV 04/05/24 06:00 04/10/24 05:57 10 ML Vancomycin HCl 0 ml @ 0 mls/hr UD IV 04/05/24 11:15 Furosemide 40 mg DAILY IV 04/06/24 14:00 04/09/24 09:29 40 MG Metoprolol Succinate 50 mg DAILY PO 04/07/24 08:45 04/09/24 09:28 50 MG Levofloxacin 250 mg DAILY PO 04/07/24 15:30 04/10/24 09:16 250 MG Albuterol 2.5 mg Q6HPRN PRN NEB 04/07/24 15:30 Ipratropium [place] 0.5 mg Q6HPRN PRN NEB 04/07/24 15:30 Apixaban 5 mg BID PO 04/07/24 22:00 04/10/24 09:16 5 MG Examination: LUNGS:Normal, CVS:Normal, MSK:Normal laboratory and microbiology Laboratory Tests 04/10/24 06:48 04/09/24 04:52 04/08/24 06:32 Test 04/08/24 06:32 Range/Units Serum Glucose 132 H 74-106 mg/dL Microbiology Date/Time Source Procedure Growth Status 04/06/24 18:19 Drainage Gram Stain - Final Resulted 04/06/24 18:19 Wound Culture - Preliminary Klebsiella oxytoca Staphylococcus aureus Resulted 04/05/24 16:30 Leg Left Gram Stain - Final Complete 04/05/24 16:30 Wound Culture - Final Staphylococcus aureus Complete 04/04/24 17:48 Blood Blood Culture - Final Klebsiella oxytoca Complete Problem List/Assessment/Plan Problem List/Assessment/Plan Acute kidney injury on Chronic kidney disease IIIb hemodynamic mediated etiology setting of severe sepsis History of Acute kidney injury needing dialysis in [place] in January 2024 currently off of dialysis Sepsis bacteremia, Klebsiella Urinary tract infection Anasarca Hypokalemia Congestive heart failure exacerbation Recommendations Kidney function is improving Increased urine output Strict I&Os IV antibiotics I agree with diuresis KCL replacement No hydronephrosis seen on the CT scan of the abdomen We will continue to follow up Plan discussed with: Patient FAVIAN BURCH MD Apr 10, 2024 11:24
[2024-04-10] MEDS: VANCOMYCIN 500mg/100mL 100 ML IV ONE (11:50)
[2024-04-10] MEDS: MIDODRINE HCL 10 MG TAB PO ONE (18:06)
--- NOTE | 2024-04-10 21:06 | DVHINCON2 ---
Date of service: Apr 10, 2024 Referring Physician Conner Camacho DO Reason for Consultation Sepsis History of Present Illness An 83-year-old woman with PMHx of atrial fibrillation who presented to ED on 04/05/24 with bilateral lower extremity swelling and blisters, symptoms ongoing for several days. Patient reported inability to walk for the past several days following recent cholecystectomy. She also reported decreased appetite. Denied fever, cough, shortness of breath, abdominal pain, nausea, vomiting, or urinary/bowel issues. Patient mentioned some burning sensation, possibly indicating an infection. No pain or weakness at rest, but had pain and numbness upon palpation of the legs. Pt had two abdominal drainage tubes in place s/p cholecystectomy, which she reported get "very full and wet." Patient was admitted for further care and pulmonary consultation is requested for evaluation and management of sepsis. Review of Systems: 14-point review of systems negative unless otherwise noted above. Past Medical History: Atrial fibrillation Past Surgical History: Recent cholecystectomy due to gallbladder rupture with adhesions to liver/intestine. Medications: Reviewed. Allergies: Erythromycin. Family History: No family history of premature CAD. No family history of lung disorders. Social History: Nonsmoker. No alcohol or illicit drug use. Allergies: Coded Allergies: Erythromycin (Verified Allergy, Severe, 04/05/24) Home Meds Reported Medications Nystatin-Triamcinolone (Mycolog) 1 Applic Ap, 1 APPLIC TOP QID, #15 GRAMS 1 Refill 04/05/24 Fluconazole (Fluconazole) 200 Mg Tab, 200 MG PO DAILY, MG 04/05/24 Atorvastatin Calcium (ATORVASTATIN CALCIUM) 40 Mg Tab, 1 TAB PO DAILY, #30 TAB 5 Refills 04/05/24 Furosemide (Furosemide) 20 Mg Tab, 20 MG PO BIDD for 30 Days, MG 04/05/24 Prednisone (Prednisone) 20 Mg Tab, 20 MG PO DAILY, MG 04/05/24 Docusate Sodium (Colace) 100 Mg Cap, 1 CAP PO DAILY, #30 CAP 04/05/24 Metoprolol Succinate (Metoprolol Succinate Er) 25 Mg Tab, 50 MG PO DAILY for 30 Days, MG 04/05/24 Levothyroxine Sodium (Levothyroxine Sodium) 25 Mcg Tab, 12.5 MCG PO QAM, MCG 04/05/24 Sacubitril-Valsartan (Entresto 24-26 mg) 1 Tab Tab, 1 TAB PO BID, TAB 04/05/24 Sodium Bicarbonate (Sodium Bicarbonate) 650 Mg Tab, 650 MG PO TID, TAB 04/05/24 Rosuvastatin Calcium (Crestor) 10 Mg Tab, 1 TAB PO DAILY, #30 TAB 5 Refills 04/05/24 Multiple Vitamin (Multivitamins) Tab, 1 TAB PO DAILY, #90 TAB 3 Refills 04/05/24 Apixaban Base (ELIQUIS) 2.5 Mg Tab, 2.5 MG PO BID, TAB 04/05/24 Dapagliflozin Propanediol (Farxiga) 10 Mg Tab, 10 MG PO DAILY, TAB 04/05/24 Furosemide (Furosemide) 40 Mg Tab, 40 MG PO BIDD for 30 Days, MG 04/05/24 Acetaminophen (Acetaminophen) 325 Mg Tab, 500 MG PO TID for 30 Days, MG 0 Refills 04/05/24 Albuterol Sulfate (VENTOLIN MDI) 90 Mcg Ih, 90 MCG IN, INH 04/05/24 Budesonide (Inhalation) (Budesonide) 0.25 Mg/2 Ml Krupa, 4.5 MCG IN, ML 04/05/24 Tiotropium [place] Monohydrate (Spiriva Respimat) 2.5 Mcg/Act Spr, 2.5 MCG IN, SPRAY 04/05/24 Current Medications Current Medications Medications (Trade) Dose Ordered Sig/Darin Route PRN Reason Start Time Stop Time Status Last Admin Midodrine (Proamatine Tablet) 5 mg BID@0600,1800 PO 04/11/24 06:00 Vital Signs Vital Signs Date Time Temp Pulse Resp B/P (MAP) Pulse Ox O2 Delivery O2 Flow Rate FiO2 04/10/24 20:10 98 Nasal Cannula 2.0 04/10/24 20:10 28 04/10/24 17:00 98.3 50 17 107/61 (76) 98.3 Physical Exam Gen.: Patient lying in bed in no apparent distress. On supplemental oxygen. Head: Normocephalic, atraumatic. Eyes: EOMI/PERRLA. Ears: Normal hearing. Normal anatomy. Neck/trachea: Trachea midline, supple. Nose: Normal external anatomy. Mouth: Moist mucous membranes. Chest: Decreased air entry bilaterally. No wheezing or rhonchi. Cardiovascular: Positive S1, positive S2. Regular rate and rhythm. Abdomen: Positive bowel sounds in all 4 quadrants. Soft, non-tender, non-di stended. : Deferred. Rectal: Deferred. Skin: Warm, dry. Intact. Extremities: 2+ radial pulses bilaterally. No lower extremity edema. Neuro: Awake, alert, oriented x3. No gross motor or sensory deficits. Cranial nerves II through XII intact. Gait not assessed. Labs/Diagnostic Data Labs Test 04/10/24 06:48 04/09/24 04:52 04/08/24 06:32 04/07/24 06:51 Range/Units Creatinine 1.30 H 0.550-1.02 mg/dL Glomerular Filtration Rate Calc 41 >90 mL/min Random Vancomycin Level 13.8 H 5-10 ug/mL White Blood Count 15.5 #H 4.4-10.8 10^3/uL Red Blood Count 4.12 4.0-5.20 10^6/uL Hemoglobin 10.6 L 12.2-16.2 g/dL Hematocrit 34.9 L 36.0-46.0 % Mean Corpuscular Volume 84.7 80.0-100.0 fL Mean Corpuscular Hemoglobin 25.8 L 28.0-32.0 pg Mean Corpuscular Hemoglobin Concent 30.5 L 32.0-36.0 g/dL Red Cell Distribution Width 18.7 H 11.8-14.3 % Platelet Count 222 140-450 10^3/uL Mean Platelet Volume 8.7 6.9-10.8 fL Neutrophils (%) (Auto) 81.5 H 37.0-80.0 % Lymphocytes (%) (Auto) 5.7 L 10.0-50.0 % Monocytes (%) (Auto) 10.9 0.0-12.0 % Eosinophils (%) (Auto) 1.6 0.0-7.0 % Basophils (%) (Auto) 0.3 0.0-2.0 % Neutrophils # (Auto) 12.7 H 1.6-8.6 10 ^3/uL Lymphocytes # (Auto) 0.9 0.4-5.4 10 ^3/uL Monocytes # (Auto) 1.7 H 0-1.3 10 ^3/uL Eosinophils # (Auto) 0.2 0-0.8 10 ^3/uL Basophils # (Auto) 0 0-0.2 10 ^3/uL Nucleated Red Blood Cells 0.2 % Sodium Level 143 136-145 mmol/L Potassium Level 3.1 L 3.5-5.1 mmol/L Chloride Level 104 98-107 mmol/L Carbon Dioxide Level 28 20-31 mmol/L Anion Gap 11 5-15 Blood Urea Nitrogen 37 #H 9-23 mg/dL BUN/Creatinine Ratio 27.4 H 10.0-20.0 Serum Glucose 132 H 74-106 mg/dL Calcium Level 8.6 L 8.7-10.4 mg/dL Total Bilirubin 0.8 0.2-1.0 mg/dL Aspartate Amino Transferase (AST) 66 H 13-40 U/L Alanine Aminotransferase (ALT) 48 H 7-40 U/L Alkaline Phosphatase 122 H 46-116 U/L Total Protein 5.5 L 5.7-8.2 g/dL Albumin 2.9 L 3.2-4.8 g/dL Test 04/06/24 09:05 04/06/24 06:07 04/06/24 03:50 04/06/24 03:45 Range/Units Lactic Acid Level 1.5 0.4-2.0 mmol/L Magnesium Level 2.2 1.6-2.6 mg/dL Urine Color Light-brown Yellow Urine Clarity Ex.turbid Clear Urine pH 6.0 5.0-9.0 Urine Specific [place] 1.012 1.001-1.035 Urine Protein 1+ H Negative Urine Ketones Negative Negative Urine Blood 3+ H Negative /uL Urine Nitrite Negative Negative Urine Bilirubin Negative Negative Urine Urobilinogen Normal Negative mg/dL Urine Leukocyte Esterase 2+ Negative /uL Urine RBC 317 0 - 4 /hpf Urine WBC Clumps Present None Seen /hpf Urine Microscopic WBC 1113 H 0-5 /HPF Urine Squamous Epithelial Cells Few <5 /hpf Urine Bacteria None seen None Seen /hpf Urine Glucose Trace Normal mg/dL Influenza Type A Antigen Negative Negative Influenza Type B Antigen Negative Negative SARS-CoV-2 Antigen (Rapid) Negative NEGATIVE Test 04/05/24 07:18 04/04/24 17:48 Range/Units Hemoglobin A1c 6.3 H <5.7 % A1C Thyroid Stimulating Hormone (TSH) 9.82 H 0.55-4.78 uIU/mL Erythrocyte Sedimentation Rate 18 0-20 mm/hr B-Type Natriuretic Peptide > 5000.00 0-100 pg/mL Microbiology Date/Time Source Procedure Growth Status 04/06/24 18:19 Drainage Gram Stain - Final Resulted 04/06/24 18:19 Wound Culture - Preliminary Klebsiella oxytoca Staphylococcus aureus Resulted 04/05/24 16:30 Leg Left Gram Stain - Final Complete 04/05/24 16:30 Wound Culture - Final Staphylococcus aureus Complete 04/04/24 17:48 Blood Blood Culture - Final Klebsiella oxytoca Complete Assessment Impression: ACUTE HYPOXIC RESPIRATORY FAILURE Dependence on supplemental oxygen Sepsis secondary to possible bilateral lower extremity cellulitis Bilateral Lower Extremity cellulitis with Blisters and Erosions - rule out pemphigus vulgaris Acute on chronic HFrEF Atrial Fibrillation KENNY on possible CKD due to VMN Post-Cholecystectomy Status due to acute cholecystitis at [facility] ( 01/2024-02/2024) Hyponatremia Hypothyroidism Prediabetes Anemia Transaminitis OBESITY WITH A BMI OF 30 Plan: Supplemental oxygen On 2 LPM Via NC Titrate to keep O2 sats above 92%. Continue antibiotics Eliquis BID Monitor renal function. Monitor electrolytes. Supplement as necessary. Monitor ins and outs. Monitor hemoglobin Monitor MONROE drain output Wound care DVT prophylaxis. Prognosis: Poor given patient's multiple co-morbidities. Rest of plan per hospitalist and other consultants. Thank you, Dr. Camacho, for allowing me to participate in this patient's care. Further recommendations will depend on the patient's clinical course. Please do not hesitate to contact me if you have any questions or concerns. This medical document was created using an electronic medical record system with [employer] dictation system. Although these documentations are being carefully reviewed, there may still be some phonetic and typographical changes. The errors are purely typographical, due to imperfection on the software program, and do not reflect any compromise in the patient's medical care. Plan discussed with: Patient, Son, Other (RN, MD) BETH EAGLE MD Apr 10, 2024 21:06
--- NOTE | 2024-04-10 22:17 | DVHPN2 ---
Progress Note - Dictate Date Seen: Apr 10, 2024 Medical Necessity Reason Pt with a Central, PICC or Fol: No Subjective Patient was seen and evaluated in follow up. Overnight, patient had 4 episodes of diarrhea, no evidence of blood in stools. MONROE drain draining 10 ml greenish, cloudy fluid. 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 Telemetry reviewed. vital signs Vital Sign Date Time Temp Pulse Resp B/P (MAP) Pulse Ox O2 Delivery O2 Flow Rate FiO2 04/10/24 10:00 97 Nasal Cannula 2.0 04/10/24 10:00 28 04/10/24 09:17 97 99/53 04/10/24 08:59 97.5 20 97.5 Total Intake and Output 04/09/24 04/09/24 04/10/24 15:00 23:00 07:00 Intake Total 580 ml 400 ml Output Total 725 ml 300 ml Balance -145 ml 100 ml medications Current Medications Medications Dose Ordered Sig/Darin Route Start Time Stop Time Status Last Admin Dose Admin Sodium Chloride 10 ml Q8HR IV 04/05/24 06:00 04/10/24 05:57 10 ML Vancomycin HCl 0 ml @ 0 mls/hr UD IV 04/05/24 11:15 Furosemide 40 mg DAILY IV 04/06/24 14:00 04/09/24 09:29 40 MG Metoprolol Succinate 50 mg DAILY PO 04/07/24 08:45 04/09/24 09:28 50 MG Levofloxacin 250 mg DAILY PO 04/07/24 15:30 04/10/24 09:16 250 MG Albuterol 2.5 mg Q6HPRN PRN NEB 04/07/24 15:30 Ipratropium [place] 0.5 mg Q6HPRN PRN NEB 04/07/24 15:30 Apixaban 5 mg BID PO 04/07/24 22:00 04/10/24 09:16 5 MG objective GENERAL: Awake, alert, oriented. Ill appearing. LUNGS: Clear. CARDIOVASCULAR: Heart sounds are good. ABDOMEN: Soft. EXT: +3 pitting edema. laboratory and microbiology Laboratory Tests 04/10/24 06:48 04/09/24 04:52 04/08/24 06:32 Test 04/08/24 06:32 Range/Units Serum Glucose 132 H 74-106 mg/dL Problem List Chronic Atrial fibrillation with episode of RVR. Acute on chronic combined systolic and diastolic HF. Sepsis, cellulitis. KENNY on CKD. Elevated LFTs. Assessment/Plan Continued all current supportive medical care. Eliquis. Diuretics with Lasix. Metoprolol. IV antibiotics as ordered. Additional plan as per the hospital course. Plan discussed with: Patient TUYET PACE MD Apr 10, 2024 12:22
[2024-04-11] VITALS (11 sets, daily range): BP systolic 93–119; BP diastolic 45–71; PULSE 95–121; RESP 16–21; TEMP 97.5–98.4; O2SAT 95–100
[2024-04-11] MEDS: MIDODRINE HCL 10 MG TAB PO SCH (07:09)
[2024-04-11 07:27] LABS: Basophils # (auto) 0.1 10 ^3/uL (0-0.2); Basophils % (auto) 0.5 % (0.0-2.0); Eosinophils # (auto) 0.1 10 ^3/uL (0-0.8); Eosinophils % (auto) 0.8 % (0.0-7.0); Hematocrit 34.5 % (36.0-46.0); Hemoglobin 10.6 g/dL (12.2-16.2); Lymphocytes # (auto) 0.9 10 ^3/uL (0.4-5.4); Lymphocytes % (auto) 7.3 % (10.0-50.0); Mean Corpuscular Hemoglobin 25.8 pg (28.0-32.0); Mean Corpuscular Hgb Conc. 30.8 g/dL (32.0-36.0); Mean Corpuscular Volume 83.8 fL (80.0-100.0); Monocytes # (auto) 1.1 10 ^3/uL (0-1.3); Monocytes % (auto) 8.3 % (0.0-12.0); Neutrophils # (auto) 10.5 10 ^3/uL (1.6-8.6); Neutrophils % (auto) 83.1 % (37.0-80.0); Nucleated Red Blood Cells % 0.2 %; Platelet Count (auto) 244 10^3/uL (140-450); Red Blood Cells 4.12 10^6/uL (4.0-5.20); Red Cell Distribution Width 18.7 % (11.8-14.3); White Blood Cell 12.6 10^3/uL (4.4-10.8)
[2024-04-11 07:46] LABS: Anion Gap 12 (5-15); Carbon Dioxide 29 mmol/L (20-31); Chloride 105 mmol/L (98-107)
[2024-04-11 07:52] LABS: BUN/Creatinine Ratio 30.1 (10.0-20.0)
[2024-04-11 07:53] LABS: Blood Urea Nitrogen 40 mg/dL (9-23); Calcium 8.5 mg/dL (8.7-10.4); Glucose 143 mg/dL (74-106); Potassium 3.1 mmol/L (3.5-5.1); Sodium 146 mmol/L (136-145)
--- NOTE | 2024-04-11 10:08 | DVHPN2 ---
Progress Note Date Seen: Apr 11, 2024 Medical Necessity Reason Pt with a Central, PICC or Fol: No Subjective Patient reports: No new complaints Other Systems: Patient seen and examined by myself today in follow-up Objective vital signs Vital Sign Date Time Temp Pulse Resp B/P (MAP) Pulse Ox O2 Delivery O2 Flow Rate FiO2 04/11/24 09:38 96 Nasal Cannula* 2 28 04/11/24 09:13 97.9 121 21 119/65 (83) 97.9 Total Intake and Output 04/10/24 04/10/24 04/11/24 15:00 23:00 07:00 Intake Total 600 ml 250 ml Output Total 300 ml 300 ml Balance 300 ml -50 ml medications Current Medications Medications Dose Ordered Sig/Darin Route Start Time Stop Time Status Last Admin Dose Admin Sodium Chloride 10 ml Q8HR IV 04/05/24 06:00 04/11/24 06:00 10 ML Vancomycin HCl 0 ml @ 0 mls/hr UD IV 04/05/24 11:15 Furosemide 40 mg DAILY IV 04/06/24 14:00 04/09/24 09:29 40 MG Metoprolol Succinate 50 mg DAILY PO 04/07/24 08:45 04/09/24 09:28 50 MG Levofloxacin 250 mg DAILY PO 04/07/24 15:30 04/10/24 09:16 250 MG Albuterol 2.5 mg Q6HPRN PRN NEB 04/07/24 15:30 Ipratropium [place] 0.5 mg Q6HPRN PRN NEB 04/07/24 15:30 Apixaban 5 mg BID PO 04/07/24 22:00 04/10/24 20:52 5 MG Midodrine 5 mg BID@0600,1800 PO 04/11/24 06:00 04/11/24 07:09 5 MG Examination: LUNGS:Normal, CVS:Normal, MSK:Abnormal laboratory and microbiology Laboratory Tests 04/11/24 06:52 Test 04/11/24 06:52 Range/Units Serum Glucose 143 H 74-106 mg/dL Microbiology Date/Time Source Procedure Growth Status 04/06/24 18:19 Drainage Gram Stain - Final Resulted 04/06/24 18:19 Wound Culture - Preliminary Klebsiella oxytoca Staphylococcus aureus Resulted 04/05/24 16:30 Leg Left Gram Stain - Final Complete 04/05/24 16:30 Wound Culture - Final Staphylococcus aureus Complete 04/04/24 17:48 Blood Blood Culture - Final Klebsiella oxytoca Complete Problem List/Assessment/Plan Problem List/Assessment/Plan Acute kidney injury on Chronic kidney disease IIIb hemodynamic mediated etiology setting of severe sepsis History of Acute kidney injury needing dialysis in [place] in January 2024 currently off of dialysis Sepsis bacteremia, Klebsiella Urinary tract infection Anasarca Hypokalemia Congestive heart failure exacerbation Vancomycin nephrotoxicity Recommendations Kidney function kidney function slightly worsened today Increased urine output Strict I&Os IV antibiotics DC vancomycin I agree with diuresis KCL replacement No hydronephrosis seen on the CT scan of the abdomen We will continue to follow up Plan discussed with: Patient FAVIAN BURCH MD Apr 11, 2024 10:08
[2024-04-11] MEDS: VANCOMYCIN 500mg/100mL 100 ML IV SCH (12:01)
--- NOTE | 2024-04-11 13:01 | DVHPN2 ---
Reviewed: Care Plan, H&P, Labs, Medications, Previous Orders, Radiology Changes from previous H/P or p: No Changes General: Per HPI Objective Vitals Vital Signs Date Time Temp Pulse Resp B/P (MAP) Pulse Ox O2 Delivery O2 Flow Rate FiO2 04/11/24 10:11 121 119/65 04/11/24 09:38 96 Nasal Cannula* 2 28 04/11/24 09:13 97.9 21 97.9 Intake/Output Intake and Output 04/11/24 07:00 Intake Total 850 ml Output Total 600 ml Balance 250 ml Intake Oral 850 ml Output Urine Total 600 ml # Bowel Movements 3 General Appearance: Alert, Cooperative, No acute distress HEENT: Atraumatic, PERRLA, EOMI, Mucous membr. moist/pink Neck: Supple Lungs: Clear to auscultation, Normal air movement Cardiovascular: Regular rate, Normal S1, Normal S2, No murmurs, Gallops, Rubs Abdomen: Normal bowel sounds, Soft, No tenderness Neuro: Cranial nerves 3-12 NL Psych/Mental Status: Mental status NL Medications Current Medications Medications Dose Ordered Sig/Darin Route Start Time Stop Time Status Last Admin Dose Admin Sodium Chloride 10 ml Q8HR IV 04/05/24 06:00 04/11/24 06:00 10 ML Vancomycin HCl 0 ml @ 0 mls/hr UD IV 04/05/24 11:15 Furosemide 40 mg DAILY IV 04/06/24 14:00 04/09/24 09:29 40 MG Metoprolol Succinate 50 mg DAILY PO 04/07/24 08:45 04/11/24 10:11 50 MG Levofloxacin 250 mg DAILY PO 04/07/24 15:30 04/11/24 10:11 250 MG Albuterol 2.5 mg Q6HPRN PRN NEB 04/07/24 15:30 Ipratropium [place] 0.5 mg Q6HPRN PRN NEB 04/07/24 15:30 Apixaban 5 mg BID PO 04/07/24 22:00 04/11/24 10:12 5 MG Midodrine 5 mg BID@0600,1800 PO 04/11/24 06:00 04/11/24 07:09 5 MG Vancomycin HCl 100 ml @ 200 mls/hr Q24H IV 04/11/24 12:00 04/11/24 12:01 200 MLS/HR Laboratory Results Laboratory Tests 04/11/24 06:52 Chemistry Test 04/11/24 06:52 Calcium Level 8.5 mg/dL (8.7-10.4) L Urinalysis Test 04/06/24 03:50 Urine Color Light-brown (Yellow) Urine Clarity Ex.turbid (Clear) Urine pH 6.0 (5.0-9.0) Urine Specific [place] 1.012 (1.001-1.035) Urine Protein 1+ (Negative) H Urine Ketones Negative (Negative) Urine Blood 3+ /uL (Negative) H Urine Nitrite Negative (Negative) Urine Bilirubin Negative (Negative) Urine Urobilinogen Normal mg/dL (Negative) Urine Leukocyte Esterase 2+ /uL (Negative) Urine RBC 317 /hpf (0 - 4) Urine WBC Clumps Present /hpf (None Seen) Urine Microscopic WBC 1113 /HPF (0-5) H Urine Squamous Epithelial Cells Few /hpf (<5) Urine Bacteria None seen /hpf (None Seen) Urine Glucose Trace mg/dL (Normal) Microbiology Microbiology Date/Time Source Procedure Growth Status 04/06/24 18:19 Drainage Gram Stain - Final Resulted 04/06/24 18:19 Wound Culture - Preliminary Klebsiella oxytoca Staphylococcus aureus Resulted 04/05/24 16:30 Leg Left Gram Stain - Final Complete 04/05/24 16:30 Wound Culture - Final Staphylococcus aureus Complete 04/04/24 17:48 Blood Blood Culture - Final Klebsiella oxytoca Complete Assessment/Plan Assessment/Plan Sepsis secondary to possible bilateral lower extremity cellulitis Bilateral Lower Extremity cellulitis with Blisters and Erosions rule out pemphigus vulgaris Lactic acidosis - continue empiric antibiotic . On Levaquin 500 mg p.o. daily. Discontinuing vancomycin and Rocephin for questionable allergic reaction - blood culture: positive for Klebsiela oxytoca, sensitive to levaquin. - wound culture: skin zacarias drainage site culture ordered recommend outpatient follow with control area operator post discharge We will repeat blood culture in a.m.. Acute on chronic HFr EF - BNP is > 5000 - bilateral pedal edema 3+ - CXR shows: Mild pulmonary vascular congestion with possible trace left-sided pleural effusion. - continue IV Lasix 40 mg daily - echocardiogram --> 25% - recommend Cardiology consult Atrial Fibrillation ( over a year per children) Continue Eliquis 5mg bid KENNY on possible CKD due to VMN - avoid nephrotoxic medication - monitor renal function -- recent history of dialysis at [facility] ( per children) --> Recommend nephrology consult Post-Cholecystectomy Status due to acute cholecystitis at [facility] ( 01/2024-02/2024) - J-tube present for post-operative drainage. - Monitor drainage from abdominal tubes - Assess for any post-operative complications --> requested for medical and surgical from [place] Hyponatremia Hypothyroidism prediabetes Anemia transaminitis weakness unable to ambulate/ 04/10/2024: continue with IV Abx for cellulitis discussed with son who wants pt to be placed at [facility] This medical document was created using an electronic medical record system with [employer] computerized dictation system. Although this document has been carefully reviewed, there may still be some phonetic and typographical errors. These areas are purely typographical due to imperfections of the software programs, and do not reflect any compromise in the patient's medical care. Plan discussed with: Patient, Son My Orders Orders - ANDREE BARNES DO Procedure Category Date Status Time Pt Request For Service PT 04/10/24 Logged 15:32 * [employer] Software Developer CONS 04/10/24 Transmitted Consult Discontinue [place] SILVA 04/10/24 In Process Catheter 15:32 Midodrine Tablet PHA 04/11/24 In Process (Proamatine Tablet) 06:00 Date of Service: Apr 10, 2024 Billing Provider: ANDREE BARNES DO Common Visit Codes: [id number] INP/OBS CARE(HIGH) ANDREE BARNES DO Apr 11, 2024 13:01
--- NOTE | 2024-04-11 13:03 | DVHPN2 ---
Reviewed: Care Plan, H&P, Labs, Medications, Previous Orders, Radiology Changes from previous H/P or p: No Changes General: Per HPI Objective Vitals Vital Signs Date Time Temp Pulse Resp B/P (MAP) Pulse Ox O2 Delivery O2 Flow Rate FiO2 04/11/24 10:11 121 119/65 04/11/24 09:38 96 Nasal Cannula* 2 28 04/11/24 09:13 97.9 21 97.9 Intake/Output Intake and Output 04/11/24 07:00 Intake Total 850 ml Output Total 600 ml Balance 250 ml Intake Oral 850 ml Output Urine Total 600 ml # Bowel Movements 3 General Appearance: Alert, Cooperative, No acute distress HEENT: Atraumatic, PERRLA, EOMI, Mucous membr. moist/pink Neck: Supple Lungs: Clear to auscultation, Normal air movement Cardiovascular: Regular rate, Normal S1, Normal S2, No murmurs, Gallops, Rubs Abdomen: Normal bowel sounds, Soft, No tenderness Neuro: Cranial nerves 3-12 NL Psych/Mental Status: Mental status NL Medications Current Medications Medications Dose Ordered Sig/Darin Route Start Time Stop Time Status Last Admin Dose Admin Sodium Chloride 10 ml Q8HR IV 04/05/24 06:00 04/11/24 06:00 10 ML Vancomycin HCl 0 ml @ 0 mls/hr UD IV 04/05/24 11:15 Furosemide 40 mg DAILY IV 04/06/24 14:00 04/09/24 09:29 40 MG Metoprolol Succinate 50 mg DAILY PO 04/07/24 08:45 04/11/24 10:11 50 MG Levofloxacin 250 mg DAILY PO 04/07/24 15:30 04/11/24 10:11 250 MG Albuterol 2.5 mg Q6HPRN PRN NEB 04/07/24 15:30 Ipratropium [place] 0.5 mg Q6HPRN PRN NEB 04/07/24 15:30 Apixaban 5 mg BID PO 04/07/24 22:00 04/11/24 10:12 5 MG Midodrine 5 mg BID@0600,1800 PO 04/11/24 06:00 04/11/24 07:09 5 MG Vancomycin HCl 100 ml @ 200 mls/hr Q24H IV 04/11/24 12:00 04/11/24 12:01 200 MLS/HR Laboratory Results Laboratory Tests 04/11/24 06:52 Chemistry Test 04/11/24 06:52 Calcium Level 8.5 mg/dL (8.7-10.4) L Urinalysis Test 04/06/24 03:50 Urine Color Light-brown (Yellow) Urine Clarity Ex.turbid (Clear) Urine pH 6.0 (5.0-9.0) Urine Specific Jansen 1.012 (1.001-1.035) Urine Protein 1+ (Negative) H Urine Ketones Negative (Negative) Urine Blood 3+ /uL (Negative) H Urine Nitrite Negative (Negative) Urine Bilirubin Negative (Negative) Urine Urobilinogen Normal mg/dL (Negative) Urine Leukocyte Esterase 2+ /uL (Negative) Urine RBC 317 /hpf (0 - 4) Urine WBC Clumps Present /hpf (None Seen) Urine Microscopic WBC 1113 /HPF (0-5) H Urine Squamous Epithelial Cells Few /hpf (<5) Urine Bacteria None seen /hpf (None Seen) Urine Glucose Trace mg/dL (Normal) Microbiology Microbiology Date/Time Source Procedure Growth Status 04/06/24 18:19 Drainage Gram Stain - Final Resulted 04/06/24 18:19 Wound Culture - Preliminary Klebsiella oxytoca Staphylococcus aureus Resulted 04/05/24 16:30 Leg Left Gram Stain - Final Complete 04/05/24 16:30 Wound Culture - Final Staphylococcus aureus Complete 04/04/24 17:48 Blood Blood Culture - Final Klebsiella oxytoca Complete Assessment/Plan Assessment/Plan Sepsis secondary to possible bilateral lower extremity cellulitis Bilateral Lower Extremity cellulitis with Blisters and Erosions rule out pemphigus vulgaris Lactic acidosis - continue empiric antibiotic . On Levaquin 500 mg p.o. daily. Discontinuing vancomycin and Rocephin for questionable allergic reaction - blood culture: positive for Klebsiela oxytoca, sensitive to levaquin. - wound culture: skin zacarias drainage site culture ordered recommend outpatient follow with guest relations manager post discharge We will repeat blood culture in a.m.. Acute on chronic HFr EF - BNP is > 5000 - bilateral pedal edema 3+ - CXR shows: Mild pulmonary vascular congestion with possible trace left-sided pleural effusion. - continue IV Lasix 40 mg daily - echocardiogram --> 25% - recommend Cardiology consult Atrial Fibrillation ( over a year per children) Continue Eliquis 5mg bid KENNY on possible CKD due to VMN - avoid nephrotoxic medication - monitor renal function -- recent history of dialysis at [place] ( per children) --> Recommend nephrology consult Post-Cholecystectomy Status due to acute cholecystitis at [facility] ( 01/2024-02/2024) - J-tube present for post-operative drainage. - Monitor drainage from abdominal tubes - Assess for any post-operative complications --> requested for medical and surgical from [place] Hyponatremia Hypothyroidism prediabetes Anemia transaminitis weakness unable to ambulate/ 04/10/2024: continue with IV Abx for cellulitis discussed with son who wants pt to be placed at [facility] 04/11/2024: continue with IV Abx PT/OT to evaluate patient. This medical document was created using an electronic medical record system with [employer] dictation system. Although this document has been carefully reviewed, there may still be some phonetic and typographical errors. These areas are purely typographical due to imperfections of the software programs, and do not reflect any compromise in the patient's medical care. Plan discussed with: Patient, Son My Orders Orders - ANDREE BARNES DO Procedure Category Date Status Time Pt Request For Service PT 04/10/24 Logged 15:32 * Continuous Improvement Engineer CONS 04/10/24 Transmitted Consult Discontinue Hurtado SILVA 04/10/24 In Process Catheter 15:32 Midodrine Tablet PHA 04/11/24 In Process (Proamatine Tablet) 06:00 * Continuous Improvement Engineer CONS 04/11/24 Transmitted Consult Potassium Er Tablet PHA 04/11/24 Transmitted (Klor-Con Tablet) 13:15 Date of Service: Apr 11, 2024 Billing Provider: ANDREE BARNES DO Common Visit Codes: [id number] INP/OBS CARE(HIGH) ANDREE BARNES DO Apr 11, 2024 13:03
[2024-04-11] MEDS: POTASSIUM CHL 20 Meq TABLET PO ONE (14:00)
--- NOTE | 2024-04-11 14:33 | DVHPN2 ---
Progress Note - Dictate Date Seen: Apr 11, 2024 Medical Necessity Reason Pt with a Central, PICC or Fol: No Subjective Patient was seen and evaluated in follow up. Patient is on 2 LPM NC. WBC 12.6, NA 146, K 3.1, BUN 40, GOVERNMENT INSTRUCTOR 1.33, CA 8.5. Pending PT eval for SNF placement. Telemetry reviewed. vital signs Vital Sign Date Time Temp Pulse Resp B/P (MAP) Pulse Ox O2 Delivery O2 Flow Rate FiO2 04/11/24 10:11 121 119/65 04/11/24 09:38 96 Nasal Cannula* 2 28 04/11/24 09:13 97.9 21 97.9 Total Intake and Output 04/10/24 04/10/24 04/11/24 15:00 23:00 07:00 Intake Total 600 ml 250 ml Output Total 300 ml 300 ml Balance 300 ml -50 ml medications Current Medications Medications Dose Ordered Sig/Darin Route Start Time Stop Time Status Last Admin Dose Admin Sodium Chloride 10 ml Q8HR IV 04/05/24 06:00 04/11/24 06:00 10 ML Vancomycin HCl 0 ml @ 0 mls/hr UD IV 04/05/24 11:15 Furosemide 40 mg DAILY IV 04/06/24 14:00 04/09/24 09:29 40 MG Metoprolol Succinate 50 mg DAILY PO 04/07/24 08:45 04/11/24 10:11 50 MG Levofloxacin 250 mg DAILY PO 04/07/24 15:30 04/11/24 10:11 250 MG Albuterol 2.5 mg Q6HPRN PRN NEB 04/07/24 15:30 Ipratropium [place] 0.5 mg Q6HPRN PRN NEB 04/07/24 15:30 Apixaban 5 mg BID PO 04/07/24 22:00 04/11/24 10:12 5 MG Midodrine 5 mg BID@0600,1800 PO 04/11/24 06:00 04/11/24 07:09 5 MG Vancomycin HCl 100 ml @ 200 mls/hr Q24H IV 04/11/24 12:00 04/11/24 12:01 200 MLS/HR objective GENERAL: Awake, alert, oriented. Ill appearing. LUNGS: Clear. CARDIOVASCULAR: Heart sounds are good. ABDOMEN: Soft. EXT: +3 pitting edema. laboratory and microbiology Laboratory Tests 04/11/24 06:52 Test 04/11/24 06:52 Range/Units Serum Glucose 143 H 74-106 mg/dL Problem List Chronic Atrial fibrillation with episode of RVR. Acute on chronic combined systolic and diastolic HF. Sepsis, cellulitis. KENNY on CKD. Elevated LFTs. Assessment/Plan Continued all current supportive medical care. Eliquis. Diuretics with Lasix. Metoprolol. IV antibiotics as ordered. Additional plan as per the hospital course. Plan discussed with: Patient TUYET PACE MD Apr 11, 2024 12:51
--- NOTE | 2024-04-11 23:36 | DVHPN2 ---
Progress Note - Dictate Date Seen: Apr 11, 2024 Medical Necessity Reason Pt with a Central, PICC or Fol: No Subjective Patient seen and examined at bedside. Remains on supplemental oxygen Overnight events reviewed. vital signs Vital Sign Date Time Temp Pulse Resp B/P (MAP) Pulse Ox O2 Delivery O2 Flow Rate FiO2 04/11/24 21:00 97.5 95 18 102/56 (71) 99 97.5 04/11/24 09:38 Nasal Cannula* 2 28 Total Intake and Output 04/10/24 04/10/24 04/11/24 15:00 23:00 07:00 Intake Total 600 ml 250 ml Output Total 300 ml 300 ml Balance 300 ml -50 ml medications Current Medications Medications Dose Ordered Sig/Darin Route Start Time Stop Time Status Last Admin Dose Admin Sodium Chloride 10 ml Q8HR IV 04/05/24 06:00 04/11/24 21:27 10 ML Vancomycin HCl 0 ml @ 0 mls/hr UD IV 04/05/24 11:15 Furosemide 40 mg DAILY IV 04/06/24 14:00 04/11/24 14:00 40 MG Metoprolol Succinate 50 mg DAILY PO 04/07/24 08:45 04/11/24 10:11 50 MG Levofloxacin 250 mg DAILY PO 04/07/24 15:30 04/11/24 10:11 250 MG Albuterol 2.5 mg Q6HPRN PRN NEB 04/07/24 15:30 Ipratropium [place] 0.5 mg Q6HPRN PRN NEB 04/07/24 15:30 Apixaban 5 mg BID PO 04/07/24 22:00 04/11/24 21:24 5 MG Midodrine 5 mg BID@0600,1800 PO 04/11/24 06:00 04/11/24 18:04 5 MG Vancomycin HCl 100 ml @ 200 mls/hr Q24H IV 04/11/24 12:00 04/11/24 12:01 200 MLS/HR objective Gen.: Patient lying in bed in no apparent distress. On supplemental oxygen. Head: Normocephalic, atraumatic. Eyes: EOMI/PERRLA. Ears: Normal hearing. Normal anatomy. Neck/trachea: Trachea midline, supple. Nose: Normal external anatomy. Mouth: Moist mucous membranes. Chest: Decreased air entry bilaterally. No wheezing or rhonchi. Cardiovascular: Positive S1, positive S2. Regular rate and rhythm. Abdomen: Positive bowel sounds in all 4 quadrants. Soft, non-tender, non- distended. : Deferred. Rectal: Deferred. Skin: Warm, dry. Intact. Extremities: 2+ radial pulses bilaterally. No lower extremity edema. Neuro: Awake, alert, oriented x3. No gross motor or sensory deficits. Cranial nerves II through XII intact. Gait not assessed. laboratory and microbiology Laboratory Tests 04/11/24 06:52 Test 04/11/24 06:52 Range/Units Serum Glucose 143 H 74-106 mg/dL Assessment/Plan Impression: Dependence on supplemental oxygen Sepsis secondary to possible bilateral lower extremity cellulitis Bilateral Lower Extremity cellulitis with Blisters and Erosions - rule out pemphigus vulgaris Acute on chronic HFrEF Atrial Fibrillation KENNY on possible CKD due to VMN Post-Cholecystectomy Status due to acute cholecystitis at [facility] ( 01/2024-02/2024) Hyponatremia Hypothyroidism Prediabetes Anemia Transaminitis Events: Remains on supplemental oxygen, 2 LPM NC Taper O2 as tolerated Assess and arrange for home oxygen Continue antibiotics Incentive spirometry WBC trending down. Physical therapy Wound care Monitor renal function. Monitor electrolytes. Supplement as necessary. Potassium supplementation Plan for SNF placement Labs and imaging reviewed. Rest of plan as noted below. Plan: Supplemental oxygen Titrate to keep O2 sats above 92%. Continue antibiotics Eliquis BID Monitor renal function. Monitor electrolytes. Supplement as necessary. Monitor ins and outs. Monitor hemoglobin Monitor MONROE drain output Wound care DVT prophylaxis. Prognosis: Guarded given patient's multiple co-morbidities. Rest of plan per hospitalist and other consultants. Thank you, Dr. Camacho, for allowing me to participate in this patient's care. Further recommendations will depend on the patient's clinical course. Please do not hesitate to contact me if you have any questions or concerns. This medical document was created using an electronic medical record system with [employer] dictation system. Although these documentations are being carefully reviewed, there may still be some phonetic and typographical changes. The errors are purely typographical, due to imperfection on the software program, and do not reflect any compromise in the patient's medical care. Plan discussed with: Patient, Other (PITA Martinez) BETH EAGLE MD Apr 11, 2024 23:36
[2024-04-12] VITALS (12 sets, daily range): BP systolic 108–127; BP diastolic 49–68; PULSE 95–130; RESP 15–18; TEMP 97.4–98.3; O2SAT 90–100
--- NOTE | 2024-04-12 13:54 | DVHPN2 ---
Progress Note Date Seen: Apr 12, 2024 Medical Necessity Reason Pt with a Central, PICC or Fol: No Subjective Review of Systems No new complaints. States she is awaiting tx to SNF for rehab. Patient reports: No new complaints, Feels better Objective vital signs Vital Sign Date Time Temp Pulse Resp B/P (MAP) Pulse Ox O2 Delivery O2 Flow Rate FiO2 04/12/24 13:51 112 113/64 04/12/24 12:49 97.6 17 90 97.6 04/12/24 10:13 Nasal Cannula 2.0 04/12/24 10:12 28 Total Intake and Output 04/11/24 04/11/24 04/12/24 15:00 23:00 07:00 Intake Total 500 ml 300 ml Output Total 350 ml 350 ml Balance 150 ml -50 ml medications Current Medications Medications Dose Ordered Sig/Darin Route Start Time Stop Time Status Last Admin Dose Admin Sodium Chloride 10 ml Q8HR IV 04/05/24 06:00 04/12/24 13:51 10 ML Vancomycin HCl 0 ml @ 0 mls/hr UD IV 04/05/24 11:15 Furosemide 40 mg DAILY IV 04/06/24 14:00 04/12/24 13:50 40 MG Metoprolol Succinate 50 mg DAILY PO 04/07/24 08:45 04/12/24 13:51 50 MG Levofloxacin 250 mg DAILY PO 04/07/24 15:30 04/12/24 12:18 250 MG Albuterol 2.5 mg Q6HPRN PRN NEB 04/07/24 15:30 Ipratropium [place] 0.5 mg Q6HPRN PRN NEB 04/07/24 15:30 Apixaban 5 mg BID PO 04/07/24 22:00 04/12/24 12:18 5 MG Midodrine 5 mg BID@0600,1800 PO 04/11/24 06:00 04/12/24 05:44 5 MG Vancomycin HCl 100 ml @ 200 mls/hr Q24H IV 04/11/24 12:00 04/12/24 13:49 200 MLS/HR Examination Gen: Patient appears stated age. In no acute distress. Pulm: Bilateral air entry no wheezes, rhonchi or rales. CVS: RRR, Normal S1 and S2 Ext: No edema Neuro: AOx4. laboratory and microbiology Laboratory Tests 04/12/24 10:30 04/11/24 06:52 Test 04/11/24 06:52 Range/Units Serum Glucose 143 H 74-106 mg/dL Microbiology Date/Time Source Procedure Growth Status 04/06/24 18:19 Drainage Gram Stain - Final Complete 04/06/24 18:19 Wound Culture - Final Klebsiella oxytoca Staphylococcus aureus Enterococcus faecium Complete 04/05/24 16:30 Leg Left Gram Stain - Final Complete 04/05/24 16:30 Wound Culture - Final Staphylococcus aureus Complete 04/04/24 17:48 Blood Blood Culture - Final Klebsiella oxytoca Complete Labs and/or images reviewed: Labs reviewed by me Problem List/Assessment/Plan Problem List/Assessment/Plan IMP Acute kidney injury on Chronic kidney disease IIIb hemodynamic mediated etiology setting of severe sepsis-improving downtrending creat 1.17 History of Acute kidney injury needing dialysis in [place] in January 2024 currently off of dialysis Sepsis bacteremia, Klebsiella Urinary tract infection Anasarca Hypokalemia-resolved Congestive heart failure exacerbation Vancomycin nephrotoxicity-vanco d/c REC Serial chemistry panels Continued improvement in urine output Strict I&Os KCL replacement prn We will continue to follow Plan discussed with: Patient My Orders My Orders Orders - DOLORES FISHER Procedure Category Date Status Time Basic Metabolic Panel LAB 04/12/24 Logged 12:01 DOLORES FISHER Apr 12, 2024 13:54
--- NOTE | 2024-04-12 13:55 | DVHPN2 ---
Progress Note - Dictate Date Seen: Apr 12, 2024 Medical Necessity Reason Pt with a Central, PICC or Fol: No Subjective Patient was seen and evaluated in follow up. No overnight events. Patient is on 2 LPM NC. Patient is pending insurance auth for placement at [facility]. Telemetry reviewed. vital signs Vital Sign Date Time Temp Pulse Resp B/P (MAP) Pulse Ox O2 Delivery O2 Flow Rate FiO2 04/12/24 10:13 97 Nasal Cannula 2.0 04/12/24 10:12 28 04/12/24 09:00 97.7 110 15 108/49 (68) 97.7 Total Intake and Output 04/11/24 04/11/24 04/12/24 15:00 23:00 07:00 Intake Total 500 ml 300 ml Output Total 350 ml 350 ml Balance 150 ml -50 ml medications Current Medications Medications Dose Ordered Sig/Darin Route Start Time Stop Time Status Last Admin Dose Admin Sodium Chloride 10 ml Q8HR IV 04/05/24 06:00 04/12/24 05:45 10 ML Vancomycin HCl 0 ml @ 0 mls/hr UD IV 04/05/24 11:15 Furosemide 40 mg DAILY IV 04/06/24 14:00 04/11/24 14:00 40 MG Metoprolol Succinate 50 mg DAILY PO 04/07/24 08:45 04/11/24 10:11 50 MG Levofloxacin 250 mg DAILY PO 04/07/24 15:30 04/11/24 10:11 250 MG Albuterol 2.5 mg Q6HPRN PRN NEB 04/07/24 15:30 Ipratropium [place] 0.5 mg Q6HPRN PRN NEB 04/07/24 15:30 Apixaban 5 mg BID PO 04/07/24 22:00 04/11/24 21:24 5 MG Midodrine 5 mg BID@0600,1800 PO 04/11/24 06:00 04/12/24 05:44 5 MG Vancomycin HCl 100 ml @ 200 mls/hr Q24H IV 04/11/24 12:00 04/11/24 12:01 200 MLS/HR objective GENERAL: Awake, alert, oriented. Ill appearing. LUNGS: Clear. CARDIOVASCULAR: Heart sounds are good. ABDOMEN: Soft. EXT: +3 pitting edema. laboratory and microbiology Laboratory Tests 04/11/24 06:52 Test 2/13/25 06:52 Range/Units Serum Glucose 143 H 74-106 mg/dL Problem List Chronic Atrial fibrillation with episode of RVR. Acute on chronic combined systolic and diastolic HF. Sepsis, cellulitis. KENNY on CKD. Elevated LFTs. Assessment/Plan Continued all current supportive medical care. Eliquis. Diuretics with Lasix. Metoprolol. IV antibiotics as ordered. Additional plan as per the hospital course. Plan discussed with: Patient TUYET PACE MD Apr 12, 2024 11:28
[2024-04-12 14:29] LABS: Chloride 105 mmol/L (98-107); Potassium 3.5 mmol/L (3.5-5.1)
[2024-04-12 14:30] LABS: Carbon Dioxide 30 mmol/L (20-31)
[2024-04-12 14:31] LABS: Calcium 8.5 mg/dL (8.7-10.4)
[2024-04-12 14:36] LABS: BUN/Creatinine Ratio 31.2 (10.0-20.0)
[2024-04-12 15:00] LABS: Blood Urea Nitrogen 39 mg/dL (9-23); Glucose 143 mg/dL (74-106)
[2024-04-12 15:37] LABS: Anion Gap 9 (5-15); Sodium 144 mmol/L (136-145)
--- NOTE | 2024-04-12 23:44 | DVHPN2 ---
Progress Note - Dictate Date Seen: Apr 12, 2024 Medical Necessity Reason Pt with a Central, PICC or Fol: No Subjective Patient seen and examined at bedside. Remains on supplemental oxygen Overnight events reviewed. vital signs Vital Sign Date Time Temp Pulse Resp B/P (MAP) Pulse Ox O2 Delivery O2 Flow Rate FiO2 04/12/24 21:00 97.4 98 18 116/62 (80) 96 97.4 04/12/24 20:00 Nasal Cannula* 2 28 Total Intake and Output 04/11/24 04/11/24 04/12/24 15:00 23:00 07:00 Intake Total 500 ml 300 ml Output Total 350 ml 350 ml Balance 150 ml -50 ml medications Current Medications Medications Dose Ordered Sig/Darin Route Start Time Stop Time Status Last Admin Dose Admin Sodium Chloride 10 ml Q8HR IV 04/05/24 06:00 04/12/24 21:03 10 ML Vancomycin HCl 0 ml @ 0 mls/hr UD IV 04/05/24 11:15 Furosemide 40 mg DAILY IV 04/06/24 14:00 04/12/24 13:50 40 MG Metoprolol Succinate 50 mg DAILY PO 04/07/24 08:45 04/12/24 13:51 50 MG Levofloxacin 250 mg DAILY PO 04/07/24 15:30 04/12/24 12:18 250 MG Albuterol 2.5 mg Q6HPRN PRN NEB 04/07/24 15:30 Ipratropium [place] 0.5 mg Q6HPRN PRN NEB 04/07/24 15:30 Apixaban 5 mg BID PO 04/07/24 22:00 04/12/24 21:03 5 MG Midodrine 5 mg BID@0600,1800 PO 04/11/24 06:00 04/12/24 18:19 5 MG Vancomycin HCl 100 ml @ 200 mls/hr Q24H IV 04/11/24 12:00 04/12/24 13:49 200 MLS/HR objective Gen.: Patient lying in bed in no apparent distress. On supplemental oxygen. Head: Normocephalic, atraumatic. Eyes: EOMI/PERRLA. Ears: Normal hearing. Normal anatomy. Neck/trachea: Trachea midline, supple. Nose: Normal external anatomy. Mouth: Moist mucous membranes. Chest: Decreased air entry bilaterally. No wheezing or rhonchi. Cardiovascular: Positive S1, positive S2. Regular rate and rhythm. Abdomen: Positive bowel sounds in all 4 quadrants. Soft, non-tender, non- distended. : Deferred. Rectal: Deferred. Skin: Warm, dry. Intact. Extremities: 2+ radial pulses bilaterally. No lower extremity edema. Neuro: Awake, alert, oriented x3. No gross motor or sensory deficits. Cranial nerves II through XII intact. Gait not assessed. laboratory and microbiology Laboratory Tests 04/12/24 14:09 04/11/24 06:52 Test 04/12/24 14:09 Range/Units Serum Glucose 143 H 74-106 mg/dL Assessment/Plan Impression: ACUTE HYPOXIC RESPIRATORY FAILURE Dependence on supplemental oxygen Sepsis secondary to possible bilateral lower extremity cellulitis Bilateral Lower Extremity cellulitis with Blisters and Erosions - rule out pemphigus vulgaris Acute on chronic HFrEF Atrial Fibrillation KENNY on possible CKD due to VMN Post-Cholecystectomy Status due to acute cholecystitis at [facility] ( 01/2024-02/2024) Hyponatremia Hypothyroidism Prediabetes Anemia Transaminitis OBESITY WITH A BMI OF 30 Events: Remains on supplemental oxygen, 1 LPM NC Taper O2 as tolerated Assess and arrange for home oxygen Patient is out of bed to chair. Head of bed elevation Aspiration precautions Continue antibiotics Continue bronchodilators Incentive spirometry WBC trending down. Physical therapy Wound care Awaiting SNF placement Labs and imaging reviewed. Rest of plan as noted below. Plan: Supplemental oxygen Titrate to keep O2 sats above 92%. Continue antibiotics Eliquis BID Monitor renal function. Monitor electrolytes. Supplement as necessary. Monitor ins and outs. Monitor hemoglobin Monitor MONROE drain output Wound care DVT prophylaxis. Prognosis: Guarded given patient's multiple co-morbidities. Rest of plan per hospitalist and other consultants. Thank you, Dr. Camacho, for allowing me to participate in this patient's care. Further recommendations will depend on the patient's clinical course. Please do not hesitate to contact me if you have any questions or concerns. This medical document was created using an electronic medical record system with [employer]. Although these documentations are being carefully reviewed, there may still be some phonetic and typographical changes. The errors are purely typographical, due to imperfection on the software program, and do not reflect any compromise in the patient's medical care. Plan discussed with: Patient, Other (RN Michelle) BETH EAGLE MD Apr 12, 2024 23:43
[2024-04-13] VITALS (10 sets, daily range): BP systolic 92–116; BP diastolic 51–63; PULSE 76–113; RESP 16–20; TEMP 97.6–98.5; O2SAT 96–98
[2024-04-13 06:44] LABS: Anion Gap 9 (5-15); Carbon Dioxide 29 mmol/L (20-31); Chloride 106 mmol/L (98-107); Sodium 144 mmol/L (136-145)
[2024-04-13 06:50] LABS: BUN/Creatinine Ratio 30.1 (10.0-20.0)
[2024-04-13 06:57] LABS: Blood Urea Nitrogen 34 mg/dL (9-23); Calcium 8.6 mg/dL (8.7-10.4); Glucose 116 mg/dL (74-106); Potassium 3.3 mmol/L (3.5-5.1)
[2024-04-13 07:00] LABS: Basophils # (auto) 0.1 10 ^3/uL (0-0.2); Basophils % (auto) 0.7 % (0.0-2.0); Eosinophils # (auto) 0.2 10 ^3/uL (0-0.8); Eosinophils % (auto) 1.2 % (0.0-7.0); Hematocrit 35.5 % (36.0-46.0); Hemoglobin 10.9 g/dL (12.2-16.2); Lymphocytes # (auto) 0.9 10 ^3/uL (0.4-5.4); Lymphocytes % (auto) 5.5 % (10.0-50.0); Mean Corpuscular Hemoglobin 25.6 pg (28.0-32.0); Mean Corpuscular Hgb Conc. 30.7 g/dL (32.0-36.0); Mean Corpuscular Volume 83.4 fL (80.0-100.0); Monocytes # (auto) 0.9 10 ^3/uL (0-1.3); Monocytes % (auto) 5.8 % (0.0-12.0); Neutrophils # (auto) 13.7 10 ^3/uL (1.6-8.6); Neutrophils % (auto) 86.8 % (37.0-80.0); Nucleated Red Blood Cells % 0.2 %; Platelet Count (auto) 274 10^3/uL (140-450); Red Blood Cells 4.25 10^6/uL (4.0-5.20); Red Cell Distribution Width 18.4 % (11.8-14.3); White Blood Cell 15.8 10^3/uL (4.4-10.8)
--- NOTE | 2024-04-13 13:25 | DVHPN2 ---
Progress Note Date Seen: Apr 13, 2024 Medical Necessity Reason Pt with a Central, PICC or Fol: No Subjective Review of Systems Awaiting tx to SNF. No new complaints. Patient reports: No new complaints, Feels better Objective vital signs Vital Sign Date Time Temp Pulse Resp B/P (MAP) Pulse Ox O2 Delivery O2 Flow Rate FiO2 04/13/24 10:03 96 Nasal Cannula* 1 24 04/13/24 09:51 103 116/63 04/13/24 08:10 97.6 16 97.6 Total Intake and Output 04/12/24 04/12/24 04/13/24 15:00 23:00 07:00 Intake Total 600 ml 505 ml Output Total 650 ml 400 ml Balance -50 ml 105 ml medications Current Medications Medications Dose Ordered Sig/Darin Route Start Time Stop Time Status Last Admin Dose Admin Sodium Chloride 10 ml Q8HR IV 04/05/24 06:00 04/13/24 05:33 10 ML Vancomycin HCl 0 ml @ 0 mls/hr UD IV 04/05/24 11:15 Furosemide 40 mg DAILY IV 04/06/24 14:00 04/13/24 09:50 40 MG Metoprolol Succinate 50 mg DAILY PO 04/07/24 08:45 04/13/24 09:51 50 MG Levofloxacin 250 mg DAILY PO 04/07/24 15:30 04/13/24 09:51 250 MG Albuterol 2.5 mg Q6HPRN PRN NEB 04/07/24 15:30 Cancel Ipratropium [place] 0.5 mg Q6HPRN PRN NEB 04/07/24 15:30 Cancel Apixaban 5 mg BID PO 04/07/24 22:00 04/13/24 09:51 5 MG Midodrine 5 mg BID@0600,1800 PO 04/11/24 06:00 04/13/24 05:34 5 MG Vancomycin HCl 100 ml @ 200 mls/hr Q24H IV 04/11/24 12:00 04/13/24 13:18 200 MLS/HR Examination Gen: Patient appears stated age. In no acute distress. Pulm: Bilateral air entry no wheezes, rhonchi or rales. CVS: RRR, Normal S1 and S2 Ext: BLE +2 pitting edema Neuro: AOx4. laboratory and microbiology Laboratory Tests 04/13/24 06:07 Test 04/13/24 06:07 Range/Units Serum Glucose 116 H 74-106 mg/dL Microbiology Date/Time Source Procedure Growth Status 04/06/24 18:19 Drainage Gram Stain - Final Complete 04/06/24 18:19 Wound Culture - Final Klebsiella oxytoca Staphylococcus aureus Enterococcus faecium Complete 04/05/24 16:30 Leg Left Gram Stain - Final Complete 04/05/24 16:30 Wound Culture - Final Staphylococcus aureus Complete 04/04/24 17:48 Blood Blood Culture - Final Klebsiella oxytoca Complete Labs and/or images reviewed: Labs reviewed by me Problem List/Assessment/Plan Problem List/Assessment/Plan IMP Acute kidney injury on Chronic kidney disease IIIb hemodynamic mediated etiology setting of severe sepsis-improving continued downtrending creat 1.13, GFR 49 History of Acute kidney injury needing dialysis in [place] in January 2024 currently off of dialysis Sepsis bacteremia, Klebsiella Urinary tract infection Anasarca Hypokalemia-ongoing Congestive heart failure exacerbation Vancomycin nephrotoxicity REC Serial chemistry panels Continued improvement in urine output Agree with diuresis Strict I&Os D/C vanco Avoidance of nephrotoxins KCL replacement prn We will continue to follow Plan discussed with: Patient DOLORES FISHER [facility] Apr 13, 2024 13:25
--- NOTE | 2024-04-13 14:37 | DVHPN2 ---
Progress Note - Dictate Date Seen: Apr 13, 2024 Medical Necessity Reason Pt with a Central, PICC or Fol: No vital signs Vital Sign Date Time Temp Pulse Resp B/P (MAP) Pulse Ox O2 Delivery O2 Flow Rate FiO2 04/13/24 10:03 96 Nasal Cannula* 1 24 04/13/24 09:51 103 116/63 04/13/24 08:10 97.6 16 97.6 Total Intake and Output 04/12/24 04/12/24 04/13/24 15:00 23:00 07:00 Intake Total 600 ml 505 ml Output Total 650 ml 400 ml Balance -50 ml 105 ml medications Current Medications Medications Dose Ordered Sig/Darin Route Start Time Stop Time Status Last Admin Dose Admin Sodium Chloride 10 ml Q8HR IV 04/05/24 06:00 04/13/24 14:11 10 ML Vancomycin HCl 0 ml @ 0 mls/hr UD IV 04/05/24 11:15 Furosemide 40 mg DAILY IV 04/06/24 14:00 04/13/24 09:50 40 MG Metoprolol Succinate 50 mg DAILY PO 04/07/24 08:45 04/13/24 09:51 50 MG Levofloxacin 250 mg DAILY PO 04/07/24 15:30 04/13/24 09:51 250 MG Albuterol 2.5 mg Q6HPRN PRN NEB 04/07/24 15:30 Cancel Ipratropium [place] 0.5 mg Q6HPRN PRN NEB 04/07/24 15:30 Cancel Apixaban 5 mg BID PO 04/07/24 22:00 04/13/24 09:51 5 MG Midodrine 5 mg BID@0600,1800 PO 04/11/24 06:00 04/13/24 05:34 5 MG Vancomycin HCl 100 ml @ 200 mls/hr Q24H IV 04/11/24 12:00 04/13/24 13:18 200 MLS/HR laboratory and microbiology Laboratory Tests 04/13/24 06:07 Test 04/13/24 06:07 Range/Units Serum Glucose 116 H 74-106 mg/dL Assessment/Plan ACUTE HYPOXIC RESPIRATORY FAILURE Dependence on supplemental oxygen Sepsis secondary to possible bilateral lower extremity cellulitis Bilateral Lower Extremity cellulitis with Blisters and Erosions - rule out pemphigus vulgaris Acute on chronic HFrEF Atrial Fibrillation KENNY 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 Head of bed elevation Aspiration precautions Continue antibiotics Continue bronchodilators Incentive spirometry WBC trending down. Physical therapy Wound care Awaiting SNF placement Labs and imaging reviewed. Rest of plan as noted below. Plan: Supplemental oxygen Titrate to keep O2 sats above 92%. Continue antibiotics Eliquis BID Monitor renal function. Monitor electrolytes. Supplement as necessary. Monitor ins and outs. Monitor hemoglobin Monitor MONROE drain output Wound care DVT prophylaxis. Prognosis: Guarded given patient's multiple co-morbidities. Rest of plan per hospitalist and other consultants. Plan discussed with: Patient DIEGO MORRIS MD Apr 13, 2024 14:37
--- NOTE | 2024-04-13 17:24 | DVHPN2 ---
Reviewed: Care Plan, H&P, Labs, Medications, Previous Orders, Radiology Changes from previous H/P or p: No Changes General: Per HPI Objective Vitals Vital Signs Date Time Temp Pulse Resp B/P (MAP) Pulse Ox O2 Delivery O2 Flow Rate FiO2 04/13/24 16:15 97.7 76 16 99/55 (70) 97 97.7 04/13/24 10:03 Nasal Cannula* 1 24 Intake/Output Intake and Output 04/13/24 07:00 Intake Total 1105 ml Output Total 1050 ml Balance 55 ml Intake Oral 1105 ml Output Urine Total 1050 ml General Appearance: Alert, Cooperative, No acute distress HEENT: Atraumatic, PERRLA, EOMI, Mucous membr. moist/pink Neck: Supple Lungs: Clear to auscultation, Normal air movement Cardiovascular: Regular rate, Normal S1, Normal S2, No murmurs, Gallops, Rubs Abdomen: Normal bowel sounds, Soft, No tenderness Neuro: Cranial nerves 3-12 NL Psych/Mental Status: Mental status NL Medications Current Medications Medications Dose Ordered Sig/Darin Route Start Time Stop Time Status Last Admin Dose Admin Sodium Chloride 10 ml Q8HR IV 04/05/24 06:00 04/13/24 14:11 10 ML Vancomycin HCl 0 ml @ 0 mls/hr UD IV 04/05/24 11:15 Furosemide 40 mg DAILY IV 04/06/24 14:00 04/13/24 09:50 40 MG Metoprolol Succinate 50 mg DAILY PO 04/07/24 08:45 04/13/24 09:51 50 MG Levofloxacin 250 mg DAILY PO 04/07/24 15:30 04/13/24 09:51 250 MG Albuterol 2.5 mg Q6HPRN PRN NEB 04/07/24 15:30 Cancel Ipratropium [place] 0.5 mg Q6HPRN PRN NEB 04/07/24 15:30 Cancel Apixaban 5 mg BID PO 04/07/24 22:00 04/13/24 09:51 5 MG Midodrine 5 mg BID@0600,1800 PO 04/11/24 06:00 04/13/24 05:34 5 MG Vancomycin HCl 100 ml @ 200 mls/hr Q24H IV 04/11/24 12:00 04/13/24 13:18 200 MLS/HR Enteral Nutritional Formula 27.5 gm BIDBL PO 04/14/24 08:00 Laboratory Results Laboratory Tests 04/13/24 06:07 Chemistry Test 04/13/24 06:07 Calcium Level 8.6 mg/dL (8.7-10.4) L Urinalysis Test 04/06/24 03:50 Urine Color Light-brown (Yellow) Urine Clarity Ex.turbid (Clear) Urine pH 6.0 (5.0-9.0) Urine Specific [place] 1.012 (1.001-1.035) Urine Protein 1+ (Negative) H Urine Ketones Negative (Negative) Urine Blood 3+ /uL (Negative) H Urine Nitrite Negative (Negative) Urine Bilirubin Negative (Negative) Urine Urobilinogen Normal mg/dL (Negative) Urine Leukocyte Esterase 2+ /uL (Negative) Urine RBC 317 /hpf (0 - 4) Urine WBC Clumps Present /hpf (None Seen) Urine Microscopic WBC 1113 /HPF (0-5) H Urine Squamous Epithelial Cells Few /hpf (<5) Urine Bacteria None seen /hpf (None Seen) Urine Glucose Trace mg/dL (Normal) Microbiology Microbiology Date/Time Source Procedure Growth Status 04/06/24 18:19 Drainage Gram Stain - Final Complete 04/06/24 18:19 Wound Culture - Final Klebsiella oxytoca Staphylococcus aureus Enterococcus faecium Complete 04/05/24 16:30 Leg Left Gram Stain - Final Complete 04/05/24 16:30 Wound Culture - Final Staphylococcus aureus Complete 04/04/24 17:48 Blood Blood Culture - Final Klebsiella oxytoca Complete Assessment/Plan Assessment/Plan Sepsis secondary to possible bilateral lower extremity cellulitis Bilateral Lower Extremity cellulitis with Blisters and Erosions rule out pemphigus vulgaris Lactic acidosis - continue empiric antibiotic . On Levaquin 500 mg p.o. daily. Discontinuing vancomycin and Rocephin for questionable allergic reaction - blood culture: positive for Klebsiela oxytoca, sensitive to levaquin. - wound culture: skin zacarias drainage site culture ordered recommend outpatient follow with sawmill relief worker post discharge We will repeat blood culture in a.m.. Acute on chronic HFr EF - BNP is > 5000 - bilateral pedal edema 3+ - CXR shows: Mild pulmonary vascular congestion with possible trace left-sided pleural effusion. 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 - Monitor drainage from abdominal tubes - Assess for any post-operative complications --> requested for medical and surgical from [place] Hyponatremia Hypothyroidism prediabetes Anemia transaminitis weakness unable to ambulate/ obesity difficulty to ambulate weakness, needing rehab per PT pending SNF placement discussed with patient at bedside discussed with son This medical document was created using an electronic medical record system with [employer] direct computerized dictation system. Although this document has been carefully reviewed, there may still be some phonetic and typographical errors. These areas are purely typographical due to imperfections of the software programs, and do not reflect any compromise in the patient's medical care. Plan discussed with: Patient Date of Service: Apr 12, 2024 Billing Provider: ANDREE BARNES DO Common Visit Codes: [id number] INP/OBS CARE(HIGH) ANDREE BARNES DO Apr 13, 2024 17:24
--- NOTE | 2024-04-13 17:25 | DVHPN2 ---
Reviewed: Care Plan, H&P, Labs, Medications, Previous Orders, Radiology Changes from previous H/P or p: No Changes General: Per HPI Objective Vitals Vital Signs Date Time Temp Pulse Resp B/P (MAP) Pulse Ox O2 Delivery O2 Flow Rate FiO2 04/13/24 16:15 97.7 76 16 99/55 (70) 97 97.7 04/13/24 10:03 Nasal Cannula* 1 24 Intake/Output Intake and Output 04/13/24 07:00 Intake Total 1105 ml Output Total 1050 ml Balance 55 ml Intake Oral 1105 ml Output Urine Total 1050 ml General Appearance: Alert, Cooperative, No acute distress HEENT: Atraumatic, PERRLA, EOMI, Mucous membr. moist/pink Neck: Supple Lungs: Clear to auscultation, Normal air movement Cardiovascular: Regular rate, Normal S1, Normal S2, No murmurs, Gallops, Rubs Abdomen: Normal bowel sounds, Soft, No tenderness Neuro: Cranial nerves 3-12 NL Psych/Mental Status: Mental status NL Medications Current Medications Medications Dose Ordered Sig/Darin Route Start Time Stop Time Status Last Admin Dose Admin Sodium Chloride 10 ml Q8HR IV 04/05/24 06:00 04/13/24 14:11 10 ML Vancomycin HCl 0 ml @ 0 mls/hr UD IV 04/05/24 11:15 Furosemide 40 mg DAILY IV 04/06/24 14:00 04/13/24 09:50 40 MG Metoprolol Succinate 50 mg DAILY PO 04/07/24 08:45 04/13/24 09:51 50 MG Levofloxacin 250 mg DAILY PO 04/07/24 15:30 04/13/24 09:51 250 MG Albuterol 2.5 mg Q6HPRN PRN NEB 04/07/24 15:30 Cancel Ipratropium [place] 0.5 mg Q6HPRN PRN NEB 04/07/24 15:30 Cancel Apixaban 5 mg BID PO 04/07/24 22:00 04/13/24 09:51 5 MG Midodrine 5 mg BID@0600,1800 PO 04/11/24 06:00 04/13/24 05:34 5 MG Vancomycin HCl 100 ml @ 200 mls/hr Q24H IV 04/11/24 12:00 04/13/24 13:18 200 MLS/HR Enteral Nutritional Formula 27.5 gm BIDBL PO 04/14/24 08:00 Laboratory Results Laboratory Tests 04/13/24 06:07 Chemistry Test 04/13/24 06:07 Calcium Level 8.6 mg/dL (8.7-10.4) L Urinalysis Test 04/06/24 03:50 Urine Color Light-brown (Yellow) Urine Clarity Ex.turbid (Clear) Urine pH 6.0 (5.0-9.0) Urine Specific [place] 1.012 (1.001-1.035) Urine Protein 1+ (Negative) H Urine Ketones Negative (Negative) Urine Blood 3+ /uL (Negative) H Urine Nitrite Negative (Negative) Urine Bilirubin Negative (Negative) Urine Urobilinogen Normal mg/dL (Negative) Urine Leukocyte Esterase 2+ /uL (Negative) Urine RBC 317 /hpf (0 - 4) Urine WBC Clumps Present /hpf (None Seen) Urine Microscopic WBC 1113 /HPF (0-5) H Urine Squamous Epithelial Cells Few /hpf (<5) Urine Bacteria None seen /hpf (None Seen) Urine Glucose Trace mg/dL (Normal) Microbiology Microbiology Date/Time Source Procedure Growth Status 04/06/24 18:19 Drainage Gram Stain - Final Complete 04/06/24 18:19 Wound Culture - Final Klebsiella oxytoca Staphylococcus aureus Enterococcus faecium Complete 04/05/24 16:30 Leg Left Gram Stain - Final Complete 04/05/24 16:30 Wound Culture - Final Staphylococcus aureus Complete 04/04/24 17:48 Blood Blood Culture - Final Klebsiella oxytoca Complete Assessment/Plan Assessment/Plan Sepsis secondary to possible bilateral lower extremity cellulitis Bilateral Lower Extremity cellulitis with Blisters and Erosions rule out pemphigus vulgaris Lactic acidosis - continue empiric antibiotic . On Levaquin 500 mg p.o. daily. Discontinuing vancomycin and Rocephin for questionable allergic reaction - blood culture: positive for Klebsiela oxytoca, sensitive to levaquin. - wound culture: skin zacarias drainage site culture ordered recommend outpatient follow with dry transfer worker post discharge We will repeat blood culture in a.m.. Acute on chronic HFr EF - BNP is > 5000 - bilateral pedal edema 3+ - CXR shows: Mild pulmonary vascular congestion with possible trace left-sided pleural effusion. 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 - Monitor drainage from abdominal tubes - Assess for any post-operative complications --> requested for medical and surgical from [place] Hyponatremia Hypothyroidism prediabetes Anemia transaminitis weakness unable to ambulate/ obesity difficulty to ambulate weakness, needing rehab per PT pending SNF placement discussed with patient at bedside discussed with son This medical document was created using an electronic medical record system with [employer] direct computerized dictation system. Although this document has been carefully reviewed, there may still be some phonetic and typographical errors. These areas are purely typographical due to imperfections of the software programs, and do not reflect any compromise in the patient's medical care. Plan discussed with: Patient Date of Service: Apr 13, 2024 Billing Provider: ANDREE BARNES DO Common Visit Codes: [id number] INP/OBS CARE(HIGH) ANDREE BARNES DO Apr 13, 2024 17:25
[2024-04-13] MEDS: POTASSIUM CHL 20 Meq TABLET PO ONE (19:33)
--- NOTE | 2024-04-13 20:18 | DVHPN2 ---
Progress Note - Dictate Date Seen: Apr 13, 2024 Medical Necessity Reason Pt with a Central, PICC or Fol: No Subjective Patient was seen and evaluated in follow up. No overnight events. Patient is on 1 LPM NC. WBC 15.8, K 3.3, BUN 34, POSTDOCTORAL SCIENTIST 1.13, CA 8.6. Pending insurance auth for transfer to [facility]. Telemetry reviewed. vital signs Vital Sign Date Time Temp Pulse Resp B/P (MAP) Pulse Ox O2 Delivery O2 Flow Rate FiO2 04/13/24 10:03 96 Nasal Cannula* 1 24 04/13/24 09:51 103 116/63 04/13/24 08:10 97.6 16 97.6 Total Intake and Output 04/12/24 04/12/24 04/13/24 15:00 23:00 07:00 Intake Total 600 ml 505 ml Output Total 650 ml 400 ml Balance -50 ml 105 ml medications Current Medications Medications Dose Ordered Sig/Darin Route Start Time Stop Time Status Last Admin Dose Admin Sodium Chloride 10 ml Q8HR IV 04/05/24 06:00 04/13/24 05:33 10 ML Vancomycin HCl 0 ml @ 0 mls/hr UD IV 04/05/24 11:15 Furosemide 40 mg DAILY IV 04/06/24 14:00 04/13/24 09:50 40 MG Metoprolol Succinate 50 mg DAILY PO 04/07/24 08:45 04/13/24 09:51 50 MG Levofloxacin 250 mg DAILY PO 04/07/24 15:30 04/13/24 09:51 250 MG Albuterol 2.5 mg Q6HPRN PRN NEB 04/07/24 15:30 Cancel Ipratropium [place] 0.5 mg Q6HPRN PRN NEB 04/07/24 15:30 Cancel Apixaban 5 mg BID PO 04/07/24 22:00 04/13/24 09:51 5 MG Midodrine 5 mg BID@0600,1800 PO 04/11/24 06:00 04/13/24 05:34 5 MG Vancomycin HCl 100 ml @ 200 mls/hr Q24H IV 04/11/24 12:00 04/12/24 13:49 200 MLS/HR objective GENERAL: Awake, alert, oriented. Ill appearing. LUNGS: Clear. CARDIOVASCULAR: Heart sounds are good. ABDOMEN: Soft. EXT: +3 pitting edema. laboratory and microbiology Laboratory Tests 04/13/24 06:07 Test 04/13/24 06:07 Range/Units Serum Glucose 116 H 74-106 mg/dL Problem List Chronic Atrial fibrillation with episode of RVR. Acute on chronic combined systolic and diastolic HF. Sepsis, cellulitis. KENNY on CKD. Elevated LFTs. Assessment/Plan Continued all current supportive medical care. Eliquis. Diuretics with Lasix. Metoprolol. IV antibiotics as ordered. Additional plan as per the hospital course. Plan discussed with: Patient TUYET PACE MD Apr 13, 2024 12:19
[2024-04-14] VITALS (9 sets, daily range): BP systolic 96–120; BP diastolic 51–68; PULSE 89–115; RESP 16–18; TEMP 97.6–98.2; O2SAT 95–99
[2024-04-14 07:22] LABS: Basophils # (auto) 0.1 10 ^3/uL (0-0.2); Basophils % (auto) 0.8 % (0.0-2.0); Eosinophils # (auto) 0.2 10 ^3/uL (0-0.8); Eosinophils % (auto) 1.4 % (0.0-7.0); Hematocrit 36.7 % (36.0-46.0); Hemoglobin 11.4 g/dL (12.2-16.2); Lymphocytes # (auto) 0.9 10 ^3/uL (0.4-5.4); Lymphocytes % (auto) 5.4 % (10.0-50.0); Mean Corpuscular Hemoglobin 26.2 pg (28.0-32.0); Mean Corpuscular Volume 84.5 fL (80.0-100.0); Monocytes % (auto) 6.5 % (0.0-12.0); Neutrophils # (auto) 13.6 10 ^3/uL (1.6-8.6); Neutrophils % (auto) 85.9 % (37.0-80.0); Nucleated Red Blood Cells % 0.2 %; Platelet Count (auto) 292 10^3/uL (140-450); Red Blood Cells 4.35 10^6/uL (4.0-5.20); Red Cell Distribution Width 19.1 % (11.8-14.3); White Blood Cell 15.8 10^3/uL (4.4-10.8)
[2024-04-14 07:31] LABS: Anion Gap 8 (5-15); Carbon Dioxide 31 mmol/L (20-31); Chloride 106 mmol/L (98-107); Potassium 3.9 mmol/L (3.5-5.1)
[2024-04-14 08:03] LABS: Blood Urea Nitrogen 35 mg/dL (9-23); Calcium 8.6 mg/dL (8.7-10.4); Glucose 134 mg/dL (74-106); Sodium 145 mmol/L (136-145)
[2024-04-14] MEDS: Juven Orange Powder PACKET 27.5gm PO SCH (09:03)
--- NOTE | 2024-04-14 12:27 | DVHPN2 ---
Progress Note - Dictate Date Seen: Apr 14, 2024 Medical Necessity Reason Pt with a Central, PICC or Fol: No vital signs Vital Sign Date Time Temp Pulse Resp B/P (MAP) Pulse Ox O2 Delivery O2 Flow Rate FiO2 04/14/24 09:13 87 98/49 04/14/24 08:50 98.0 16 96 98.0 04/14/24 08:15 Nasal Cannula* 2 28 Total Intake and Output 04/13/24 04/13/24 04/14/24 15:00 23:00 07:00 Intake Total 0 ml 275 ml 240 ml Output Total 450 ml 210 ml Balance 0 ml -175 ml 30 ml medications Current Medications Medications Dose Ordered Sig/Darin Route Start Time Stop Time Status Last Admin Dose Admin Sodium Chloride 10 ml Q8HR IV 04/05/24 06:00 04/14/24 05:26 10 ML Vancomycin HCl 0 ml @ 0 mls/hr UD IV 04/05/24 11:15 Furosemide 40 mg DAILY IV 04/06/24 14:00 04/13/24 09:50 40 MG Metoprolol Succinate 50 mg DAILY PO 04/07/24 08:45 04/13/24 09:51 50 MG Levofloxacin 250 mg DAILY PO 04/07/24 15:30 04/14/24 09:10 250 MG Albuterol 2.5 mg Q6HPRN PRN NEB 04/07/24 15:30 Cancel Ipratropium [place] 0.5 mg Q6HPRN PRN NEB 04/07/24 15:30 Cancel Apixaban 5 mg BID PO 04/07/24 22:00 04/14/24 09:09 5 MG Midodrine 5 mg BID@0600,1800 PO 04/11/24 06:00 04/14/24 05:26 5 MG Vancomycin HCl 100 ml @ 200 mls/hr Q24H IV 04/11/24 12:00 04/14/24 11:38 200 MLS/HR Enteral Nutritional Formula 27.5 gm BIDBL PO 04/14/24 08:00 04/14/24 09:03 27.5 GM laboratory and microbiology Laboratory Tests 04/14/24 06:50 Test 04/14/24 06:50 Range/Units Serum Glucose 134 H 74-106 mg/dL Assessment/Plan ACUTE HYPOXIC RESPIRATORY FAILURE Dependence on supplemental oxygen Sepsis secondary to possible bilateral lower extremity cellulitis Bilateral Lower Extremity cellulitis with Blisters and Erosions - rule out pemphigus vulgaris Acute on chronic HFrEF Atrial Fibrillation KENNY 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 Head of bed elevation Aspiration precautions Continue antibiotics Continue bronchodilators Incentive spirometry WBC trending down. Physical therapy Wound care Awaiting SNF placement Labs and imaging reviewed. Rest of plan as noted below. Plan: Supplemental oxygen Titrate to keep O2 sats above 92%. Continue antibiotics Eliquis BID Monitor renal function. Monitor electrolytes. Supplement as necessary. Monitor ins and outs. Monitor hemoglobin Monitor [place] drain output Wound care DVT prophylaxis. Prognosis: Guarded given patient's multiple co-morbidities. Rest of plan per hospitalist and other consultants. Dietary Evaluation Review Comments: 1. Consider adding [place] BID (180kcal, 5g pro) for wound healing 2. Continue current diet regime 3. Consider appetite stimulant if poor PO intake continues Expected Outcomes/Goals: 1. Pt will meet >75% of estimated needs within 3-5 days Plan discussed with: Patient DIEGO MORRIS MD Apr 14, 2024 12:27
--- NOTE | 2024-04-14 13:17 | DVHPN2 ---
Progress Note Date Seen: Apr 14, 2024 Medical Necessity Reason Pt with a Central, PICC or Fol: No Subjective Review of Systems No new complaints. Awaiting SNF tx. Patient reports: No new complaints Objective vital signs Vital Sign Date Time Temp Pulse Resp B/P (MAP) Pulse Ox O2 Delivery O2 Flow Rate FiO2 04/14/24 09:13 87 98/49 04/14/24 08:50 98.0 16 96 98.0 04/14/24 08:15 Nasal Cannula* 2 28 Total Intake and Output 04/13/24 04/13/24 04/14/24 15:00 23:00 07:00 Intake Total 0 ml 275 ml 240 ml Output Total 450 ml 210 ml Balance 0 ml -175 ml 30 ml medications Current Medications Medications Dose Ordered Sig/Darin Route Start Time Stop Time Status Last Admin Dose Admin Sodium Chloride 10 ml Q8HR IV 04/05/24 06:00 04/14/24 05:26 10 ML Vancomycin HCl 0 ml @ 0 mls/hr UD IV 04/05/24 11:15 Furosemide 40 mg DAILY IV 04/06/24 14:00 04/13/24 09:50 40 MG Metoprolol Succinate 50 mg DAILY PO 04/07/24 08:45 04/13/24 09:51 50 MG Levofloxacin 250 mg DAILY PO 04/07/24 15:30 04/14/24 09:10 250 MG Albuterol 2.5 mg Q6HPRN PRN NEB 04/07/24 15:30 Cancel Ipratropium [place] 0.5 mg Q6HPRN PRN NEB 04/07/24 15:30 Cancel Apixaban 5 mg BID PO 04/07/24 22:00 04/14/24 09:09 5 MG Midodrine 5 mg BID@0600,1800 PO 04/11/24 06:00 04/14/24 05:26 5 MG Vancomycin HCl 100 ml @ 200 mls/hr Q24H IV 04/11/24 12:00 04/14/24 11:38 200 MLS/HR Enteral Nutritional Formula 27.5 gm BIDBL PO 04/14/24 08:00 04/14/24 09:03 27.5 GM Examination Gen: Patient appears stated age. In no acute distress. Pulm: Bilateral air entry no wheezes, rhonchi or rales. CVS: RRR, Normal S1 and S2 Ext: BLE +2 pitting edema Neuro: AOx4. laboratory and microbiology Laboratory Tests 04/14/24 06:50 Test 04/14/24 06:50 Range/Units Serum Glucose 134 H 74-106 mg/dL Microbiology Date/Time Source Procedure Growth Status 04/06/24 18:19 Drainage Gram Stain - Final Complete 04/06/24 18:19 Wound Culture - Final Klebsiella oxytoca Staphylococcus aureus Enterococcus faecium Complete 04/05/24 16:30 Leg Left Gram Stain - Final Complete 04/05/24 16:30 Wound Culture - Final Staphylococcus aureus Complete 04/04/24 17:48 Blood Blood Culture - Final Klebsiella oxytoca Complete Labs and/or images reviewed: Labs reviewed by me Problem List/Assessment/Plan Problem List/Assessment/Plan IMP Acute kidney injury on Chronic kidney disease IIIb hemodynamic mediated etiology setting of severe sepsis- slight uptrend in creat 1.25, GFR 43 History of Acute kidney injury needing dialysis in [place] in January 2024 currently off of dialysis Sepsis bacteremia, Klebsiella Urinary tract infection Anasarca Hypokalemia-resolved Congestive heart failure exacerbation Vancomycin nephrotoxicity REC Serial chemistry panels Continued improvement in urine output Strict I&Os D/C vanco Avoidance of nephrotoxins We will continue to follow Plan discussed with: Patient My Orders My Orders Orders - DOLORES FISHER Procedure Category Date Status Time Nutritional PHA 04/14/24 In Process Supplements (Arthur 08:00 Dietary Evaluation Review Comments: 1. Consider adding Arthur BID (180kcal, 5g pro) for wound healing 2. Continue current diet regime 3. Consider appetite stimulant if poor PO intake continues Expected Outcomes/Goals: 1. Pt will meet >75% of estimated needs within 3-5 days DOLORES FISHER Apr 14, 2024 13:17
--- NOTE | 2024-04-14 18:23 | DVHPN2 ---
Progress Note - Dictate Date Seen: Apr 14, 2024 Medical Necessity Reason Pt with a Central, PICC or Fol: No Subjective Patient was seen and evaluated in follow up. No overnight events. Patient is resting in bed. Patient is awaiting for transfer to SNF. WBC 15.8, BUN 35, SENIOR QUALITY TECHNICIAN 1.25, CA 8.6. Telemetry reviewed. vital signs Vital Sign Date Time Temp Pulse Resp B/P (MAP) Pulse Ox O2 Delivery O2 Flow Rate FiO2 04/14/24 10:00 96 Nasal Cannula* 2 28 04/14/24 09:13 87 98/49 04/14/24 08:50 98.0 16 98.0 Total Intake and Output 04/13/24 04/13/24 04/14/24 15:00 23:00 07:00 Intake Total 0 ml 275 ml 240 ml Output Total 450 ml 210 ml Balance 0 ml -175 ml 30 ml medications Current Medications Medications Dose Ordered Sig/Darin Route Start Time Stop Time Status Last Admin Dose Admin Sodium Chloride 10 ml Q8HR IV 04/05/24 06:00 04/14/24 05:26 10 ML Vancomycin HCl 0 ml @ 0 mls/hr UD IV 04/05/24 11:15 Furosemide 40 mg DAILY IV 04/06/24 14:00 04/13/24 09:50 40 MG Metoprolol Succinate 50 mg DAILY PO 04/07/24 08:45 04/13/24 09:51 50 MG Levofloxacin 250 mg DAILY PO 04/07/24 15:30 04/14/24 09:10 250 MG Albuterol 2.5 mg Q6HPRN PRN NEB 04/07/24 15:30 Cancel Ipratropium [place] 0.5 mg Q6HPRN PRN NEB 04/07/24 15:30 Cancel Apixaban 5 mg BID PO 04/07/24 22:00 04/14/24 09:09 5 MG Midodrine 5 mg BID@0600,1800 PO 04/11/24 06:00 04/14/24 05:26 5 MG Vancomycin HCl 100 ml @ 200 mls/hr Q24H IV 04/11/24 12:00 04/14/24 11:38 200 MLS/HR Enteral Nutritional Formula 27.5 gm BIDBL PO 04/14/24 08:00 04/14/24 09:03 27.5 GM objective GENERAL: Awake, alert, oriented. Ill appearing. LUNGS: Clear. CARDIOVASCULAR: Heart sounds are good. ABDOMEN: Soft. EXT: +3 pitting edema. laboratory and microbiology Laboratory Tests 04/14/24 06:50 Test 04/14/24 06:50 Range/Units Serum Glucose 134 H 74-106 mg/dL Problem List Chronic Atrial fibrillation with episode of RVR. Acute on chronic combined systolic and diastolic HF. Sepsis, cellulitis. KENNY on CKD. Elevated LFTs. Assessment/Plan Continued all current supportive medical care. Eliquis. Diuretics with Lasix. Metoprolol. IV antibiotics as ordered. Additional plan as per the hospital course. Dietary Evaluation Review Comments: 1. Consider adding Arthur BID (180kcal, 5g pro) for wound healing 2. Continue current diet regime 3. Consider appetite stimulant if poor PO intake continues Expected Outcomes/Goals: 1. Pt will meet >75% of estimated needs within 3-5 days Plan discussed with: Patient TUYET PACE MD Apr 14, 2024 13:58
--- NOTE | 2024-04-14 22:22 | DVHPN2 ---
Reviewed: Care Plan, H&P, Labs, Medications, Previous Orders, Radiology Changes from previous H/P or p: No Changes General: Per HPI Objective Vitals Vital Signs Date Time Temp Pulse Resp B/P (MAP) Pulse Ox O2 Delivery O2 Flow Rate FiO2 04/14/24 21:00 98.2 99 18 108/53 (71) 96 98.2 04/14/24 10:00 Nasal Cannula* 2 28 Intake/Output Intake and Output 04/14/24 07:00 Intake Total 515 ml Output Total 660 ml Balance -145 ml Intake Oral 515 ml Output Urine Total 650 ml Gastric Drainage Total 10 ml # Bowel Movements 2 General Appearance: Alert, Cooperative, No acute distress HEENT: Atraumatic, PERRLA, EOMI, Mucous membr. moist/pink Neck: Supple Lungs: Clear to auscultation, Normal air movement Cardiovascular: Regular rate, Normal S1, Normal S2, No murmurs, Gallops, Rubs Abdomen: Normal bowel sounds, Soft, No tenderness Neuro: Cranial nerves 3-12 NL Psych/Mental Status: Mental status NL Medications Current Medications Medications Dose Ordered Sig/Darin Route Start Time Stop Time Status Last Admin Dose Admin Sodium Chloride 10 ml Q8HR IV 04/05/24 06:00 04/14/24 21:15 10 ML Vancomycin HCl 0 ml @ 0 mls/hr UD IV 04/05/24 11:15 Furosemide 40 mg DAILY IV 04/06/24 14:00 04/13/24 09:50 40 MG Metoprolol Succinate 50 mg DAILY PO 04/07/24 08:45 04/13/24 09:51 50 MG Levofloxacin 250 mg DAILY PO 04/07/24 15:30 04/14/24 09:10 250 MG Albuterol 2.5 mg Q6HPRN PRN NEB 04/07/24 15:30 Cancel Ipratropium [place] 0.5 mg Q6HPRN PRN NEB 04/07/24 15:30 Cancel Apixaban 5 mg BID PO 04/07/24 22:00 04/14/24 21:16 5 MG Midodrine 5 mg BID@0600,1800 PO 04/11/24 06:00 04/14/24 18:23 5 MG Vancomycin HCl 100 ml @ 200 mls/hr Q24H IV 04/11/24 12:00 04/14/24 11:38 200 MLS/HR Enteral Nutritional Formula 27.5 gm BIDBL PO 04/14/24 08:00 04/14/24 12:00 27.5 GM Laboratory Results Laboratory Tests 04/14/24 06:50 Chemistry Test 04/14/24 06:50 Calcium Level 8.6 mg/dL (8.7-10.4) L Urinalysis Test 04/06/24 03:50 Urine Color Light-brown (Yellow) Urine Clarity Ex.turbid (Clear) Urine pH 6.0 (5.0-9.0) Urine Specific [place] 1.012 (1.001-1.035) Urine Protein 1+ (Negative) H Urine Ketones Negative (Negative) Urine Blood 3+ /uL (Negative) H Urine Nitrite Negative (Negative) Urine Bilirubin Negative (Negative) Urine Urobilinogen Normal mg/dL (Negative) Urine Leukocyte Esterase 2+ /uL (Negative) Urine RBC 317 /hpf (0 - 4) Urine WBC Clumps Present /hpf (None Seen) Urine Microscopic WBC 1113 /HPF (0-5) H Urine Squamous Epithelial Cells Few /hpf (<5) Urine Bacteria None seen /hpf (None Seen) Urine Glucose Trace mg/dL (Normal) Microbiology Microbiology Date/Time Source Procedure Growth Status 04/06/24 18:19 Drainage Gram Stain - Final Complete 04/06/24 18:19 Wound Culture - Final Klebsiella oxytoca Staphylococcus aureus Enterococcus faecium Complete 04/05/24 16:30 Leg Left Gram Stain - Final Complete 04/05/24 16:30 Wound Culture - Final Staphylococcus aureus Complete 04/04/24 17:48 Blood Blood Culture - Final Klebsiella oxytoca Complete Assessment/Plan Assessment/Plan Sepsis secondary to possible bilateral lower extremity cellulitis Bilateral Lower Extremity cellulitis with Blisters and Erosions rule out pemphigus vulgaris Lactic acidosis - continue empiric antibiotic . On Levaquin 500 mg p.o. daily. Discontinuing vancomycin and Rocephin for questionable allergic reaction - blood culture: positive for Klebsiela oxytoca, sensitive to levaquin. - wound culture: skin zacarias drainage site culture ordered recommend outpatient follow with agricultural research technologist post discharge We will repeat blood culture in a.m.. Acute on chronic HFr EF - BNP is > 5000 - bilateral pedal edema 3+ - CXR shows: Mild pulmonary vascular congestion with possible trace left-sided pleural effusion. - continue IV Lasix 40 mg daily - echocardiogram --> 25% - recommend Cardiology consult Atrial Fibrillation ( over a year per children) Continue Eliquis 5mg bid KENNY on possible CKD due to VMN - avoid nephrotoxic medication - monitor renal function -- recent history of dialysis at [place] ( per children) --> Recommend nephrology consult Post-Cholecystectomy Status due to acute cholecystitis at [facility] ( 01/2024-02/2024) - J-tube present for post-operative drainage. - Monitor drainage from abdominal tubes - Assess for any post-operative complications --> requested for medical and surgical from [place] Hyponatremia Hypothyroidism prediabetes Anemia transaminitis weakness unable to ambulate/ obesity difficulty to ambulate weakness, needing rehab per PT pending SNF placement discussed with patient at bedside discussed with son This medical document was created using an electronic medical record system with [employer] direct computerized dictation system. Although this document has been carefully reviewed, there may still be some phonetic and typographical errors. These areas are purely typographical due to imperfections of the software programs, and do not reflect any compromise in the patient's medical care. Plan discussed with: Patient Date of Service: Apr 14, 2024 Billing Provider: ANDREE BARNES DO Common Visit Codes: [id number] INP/OBS CARE(HIGH) ANDREE BARNES DO Apr 14, 2024 22:22
--- NOTE | 2024-04-14 23:00 | DVHINCON2 ---
Date of service: Apr 14, 2024 Allergies: Coded Allergies: Erythromycin (Verified Allergy, Severe, 04/05/24) Home Meds Reported Medications Nystatin-Triamcinolone (Mycolog) 1 Applic Ap, 1 APPLIC TOP QID, #15 GRAMS 1 Refill 04/05/24 Fluconazole (Fluconazole) 200 Mg Tab, 200 MG PO DAILY, MG 04/05/24 Atorvastatin Calcium (ATORVASTATIN CALCIUM) 40 Mg Tab, 1 TAB PO DAILY, #30 TAB 5 Refills 04/05/24 Furosemide (Furosemide) 20 Mg Tab, 20 MG PO BIDD for 30 Days, MG 04/05/24 Prednisone (Prednisone) 20 Mg Tab, 20 MG PO DAILY, MG 04/05/24 Docusate Sodium (Colace) 100 Mg Cap, 1 CAP PO DAILY, #30 CAP 04/05/24 Metoprolol Succinate (Metoprolol Succinate Er) 25 Mg Tab, 50 MG PO DAILY for 30 Days, MG 04/05/24 Levothyroxine Sodium (Levothyroxine Sodium) 25 Mcg Tab, 12.5 MCG PO QAM, MCG 04/05/24 Sacubitril-Valsartan (Entresto 24-26 mg) 1 Tab Tab, 1 TAB PO BID, TAB 04/05/24 Sodium Bicarbonate (Sodium Bicarbonate) 650 Mg Tab, 650 MG PO TID, TAB 04/05/24 Rosuvastatin Calcium (Crestor) 10 Mg Tab, 1 TAB PO DAILY, #30 TAB 5 Refills 04/05/24 Multiple Vitamin (Multivitamins) Tab, 1 TAB PO DAILY, #90 TAB 3 Refills 04/05/24 Apixaban Base (ELIQUIS) 2.5 Mg Tab, 2.5 MG PO BID, TAB 04/05/24 Dapagliflozin Propanediol (Farxiga) 10 Mg Tab, 10 MG PO DAILY, TAB 04/05/24 Furosemide (Furosemide) 40 Mg Tab, 40 MG PO BIDD for 30 Days, MG 04/05/24 Acetaminophen (Acetaminophen) 325 Mg Tab, 500 MG PO TID for 30 Days, MG 0 Refills 04/05/24 Albuterol Sulfate (VENTOLIN MDI) 90 Mcg Ih, 90 MCG IN, INH 04/05/24 Budesonide (Inhalation) (Budesonide) 0.25 Mg/2 Ml [place], 4.5 MCG IN, ML 04/05/24 Tiotropium [place] Monohydrate (Spiriva Respimat) 2.5 Mcg/Act Spr, 2.5 MCG IN, SPRAY 04/05/24 Current Medications Current Medications Medications (Trade) Dose Ordered Sig/Darin Route PRN Reason Start Time Stop Time Status Last Admin Enteral Nutritional Formula (Arthur Amelia Powder PACKET) 27.5 gm BIDBL PO 04/14/24 08:00 04/14/24 12:00 Vital Signs Vital Signs Date Time Temp Pulse Resp B/P (MAP) Pulse Ox O2 Delivery O2 Flow Rate FiO2 04/14/24 21:00 98.2 99 18 108/53 (71) 96 98.2 04/14/24 10:00 Nasal Cannula* 2 28 Labs/Diagnostic Data Labs Test 04/14/24 06:50 04/12/24 10:30 04/11/24 06:52 04/07/24 06:51 Range/Units White Blood Count 15.8 H 4.4-10.8 10^3/uL Red Blood Count 4.35 4.0-5.20 10^6/uL Hemoglobin 11.4 L 12.2-16.2 g/dL Hematocrit 36.7 36.0-46.0 % Mean Corpuscular Volume 84.5 80.0-100.0 fL Mean Corpuscular Hemoglobin 26.2 L 28.0-32.0 pg Mean Corpuscular Hemoglobin Concent 31.0 L 32.0-36.0 g/dL Red Cell Distribution Width 19.1 H 11.8-14.3 % Platelet Count 292 140-450 10^3/uL Mean Platelet Volume 8.2 6.9-10.8 fL Neutrophils (%) (Auto) 85.9 H 37.0-80.0 % Lymphocytes (%) (Auto) 5.4 L 10.0-50.0 % Monocytes (%) (Auto) 6.5 0.0-12.0 % Eosinophils (%) (Auto) 1.4 0.0-7.0 % Basophils (%) (Auto) 0.8 0.0-2.0 % Neutrophils # (Auto) 13.6 H 1.6-8.6 10 ^3/uL Lymphocytes # (Auto) 0.9 0.4-5.4 10 ^3/uL Monocytes # (Auto) 1.0 0-1.3 10 ^3/uL Eosinophils # (Auto) 0.2 0-0.8 10 ^3/uL Basophils # (Auto) 0.1 0-0.2 10 ^3/uL Nucleated Red Blood Cells 0.2 % Sodium Level 145 136-145 mmol/L Potassium Level 3.9 3.5-5.1 mmol/L Chloride Level 106 98-107 mmol/L Carbon Dioxide Level 31 20-31 mmol/L Anion Gap 8 5-15 Blood Urea Nitrogen 35 H 9-23 mg/dL Creatinine 1.25 H 0.550-1.02 mg/dL Glomerular Filtration Rate Calc 43 >90 mL/min BUN/Creatinine Ratio 28.0 H 10.0-20.0 Serum Glucose 134 H 74-106 mg/dL Calcium Level 8.6 L 8.7-10.4 mg/dL Vancomycin Level Trough 16.5 H 5-10 ug/mL Random Vancomycin Level 15.8 H 5-10 ug/mL Total Bilirubin 0.8 0.2-1.0 mg/dL Aspartate Amino Transferase (AST) 66 H 13-40 U/L Alanine Aminotransferase (ALT) 48 H 7-40 U/L Alkaline Phosphatase 122 H 46-116 U/L Total Protein 5.5 L 5.7-8.2 g/dL Albumin 2.9 L 3.2-4.8 g/dL Test 04/06/24 09:05 04/06/24 06:07 04/06/24 03:50 04/06/24 03:45 Range/Units Lactic Acid Level 1.5 0.4-2.0 mmol/L Magnesium Level 2.2 1.6-2.6 mg/dL Urine Color Light-brown Yellow Urine Clarity Ex.turbid Clear Urine pH 6.0 5.0-9.0 Urine Specific [place] 1.012 1.001-1.035 Urine Protein 1+ H Negative Urine Ketones Negative Negative Urine Blood 3+ H Negative /uL Urine Nitrite Negative Negative Urine Bilirubin Negative Negative Urine Urobilinogen Normal Negative mg/dL Urine Leukocyte Esterase 2+ Negative /uL Urine RBC 317 0 - 4 /hpf Urine WBC Clumps Present None Seen /hpf Urine Microscopic WBC 1113 H 0-5 /HPF Urine Squamous Epithelial Cells Few <5 /hpf Urine Bacteria None seen None Seen /hpf Urine Glucose Trace Normal mg/dL Influenza Type A Antigen Negative Negative Influenza Type B Antigen Negative Negative SARS-CoV-2 Antigen (Rapid) Negative NEGATIVE Test 04/05/24 07:18 04/04/24 17:48 Range/Units Hemoglobin A1c 6.3 H <5.7 % A1C Thyroid Stimulating Hormone (TSH) 9.82 H 0.55-4.78 uIU/mL Erythrocyte Sedimentation Rate 18 0-20 mm/hr B-Type Natriuretic Peptide > 5000.00 0-100 pg/mL Microbiology Date/Time Source Procedure Growth Status 04/06/24 18:19 Drainage Gram Stain - Final Complete 04/06/24 18:19 Wound Culture - Final Klebsiella oxytoca Staphylococcus aureus Enterococcus faecium Complete 04/05/24 16:30 Leg Left Gram Stain - Final Complete 04/05/24 16:30 Wound Culture - Final Staphylococcus aureus Complete 04/04/24 17:48 Blood Blood Culture - Final Klebsiella oxytoca Complete Problems(with codes): (1) Generalized weakness (2) Sepsis (3) Cellulitis of lower extremity Plan/Recommendation ASSESSMENT AND PLAN: ID Problem List: - Bilateral lower extremity cellulitis - Congestive heart failure exacerbation with systolic dysfunction (EF 25%) - Atrial fibrillation - Acute kidney injury - Recent cholecystectomy with biliary stent placement and abdominal drains - Bacteremia with Klebsiella oxytoca - Leg cultures positive for Methicillin-sensitive Staphylococcus aureus (MSSA) - Diabetes mellitus (HbA1c 6.3%) - Bilateral lower extremity edema with blisters Assessment This is an 83 y.o. female with a past medical history of atrial fibrillation, recent cholecystectomy, congestive heart failure (EF 25%), and diabetes mellitus (HbA1c 6.3%), who presents with bilateral lower extremity leg swelling and blisters. The patient reports that the leg swelling and blisters have been ongoing for several days since her discharge after a recent cholecystectomy. She denies shortness of breath and chest pain. The blisters are located on her legs and contain clear fluid. She has two abdominal drains in place, which have had minimal output during this admission (only 10 cc). She reports good bowel movements and is tolerating diet. Labs are significant for leukocytosis (WBC 15.8), elevated BUN (191), creatinine (1.87), elevated BNP (>5000), and platelet count (410). Blood cultures on 04/04 showed Klebsiella oxytoca, sensitive to all antibiotics except Zosyn, cefazolin, ampicillin, and Unasyn. Leg cultures on 04/05 grew methicillin-sensitive Staphylococcus aureus. Echocardiogram revealed right ventricular enlargement, left ventricular hypertrophy, biatrial enlargement, mild aortic sclerosis, EF 25% with global hypokinesis, and pulmonary hypertension. CT abdomen/pelvis from 04/07 showed post-surgical changes due to recent cholecystectomy with surgical drains in place, biliary stent in the common bile duct, small bilateral pleural effusions with bibasilar atelectasis, nonspecific skin thickening and subcutaneous stranding over the left lateral chest and abdominal wall (could be due to dependent edema; cellulitis not excluded), and trace pneumoperitoneum likely related to recent surgery. The patient has been undergoing diuresis under cardiology with good response, with output of approximately 2.5 liters since admission. Leg blisters are improving with diuresis. Plan: - Discontinue vancomycin. - Start IV Unasyn while inpatient to provide adequate coverage for intra- abdominal organisms, bacteremia, and wound infection. - Continue oral levofloxacin 250 mg daily to ensure adequate coverage of Klebsiella and Enterococcus. - Upon discharge, increase levofloxacin to 500 mg daily, assuming renal function permits as kidney function improves. - Defer management of KENNY to nephrology. - Continue aggressive diuresis to improve lower extremity edema and cellulitis. - Keep blood glucose levels under 188 mg/dL to aid in infection control. - Defer management of congestive heart failure exacerbation to cardiology team. - Repeat blood cultures to ensure bacteremia has cleared. - Arrange for post-surgical follow-up with her original surgeons after discharg e. Isolation Precautions: standard Assessment and plan was discussed with the patient as written above Plan is subject to change pending incorporation of new incoming information/diagnostics. Updates may be added as addendum at the bottom (OR TOP) of this note Thank you for interesting consult. ID will continue to follow. Please contact Infectious Disease for any questions or concerns. Vazquez Gomez M.D. [facility] Ph: ? History: The patient's chart and medications were reviewed in detail and the patient was seen and examined. History obtained from: patient Ms. Briceño is an 83 y.o. female with a past medical history of atrial fibrillation, recent cholecystectomy, congestive heart failure (EF 25%), and diabetes mellitus (HbA1c 6.3%), who presents with bilateral lower extremity leg swelling and blisters. The leg swelling and blisters have been ongoing for several days since her discharge after a recent cholecystectomy. She denies shortness of breath and chest pain. Blisters are present on her legs and contain clear fluid. She has two abdominal drains in place, which have minimal output (only 10 cc during this admission). She reports having good bowel movements and is tolerating diet. Review of Systems: A complete 10 system review of systems was completed and negative except as noted in the HPI or here. ROS: - CONSTITUTIONAL: Denies weight loss, fever, and chills. - HEENT: Denies changes in vision and hearing. - RESPIRATORY: Denies shortness of breath and cough. - CV: Denies palpitations and chest pain. - GI: Denies abdominal pain, nausea, vomiting, and diarrhea. Reports good bowel movements and tolerating diet. - : Denies dysuria and urinary frequency. - MSK: Denies myalgia and joint pain. - SKIN: Reports bilateral leg blisters with clear fluid. - NEUROLOGICAL: Denies headache and syncope. - PSYCHIATRIC: Denies recent changes in mood. Denies anxiety and depression. Past Medical History: Diagnosis Date Atrial fibrillation Recent cholecystectomy Congestive heart failure (EF 25%) Diabetes mellitus (HbA1c 6.3%) Acute kidney injury Past Surgical History: Cholecystectomy (recent) Home Medications: Not specified in transcript. Allergies: Not specified in transcript. Family History: Not specified in transcript. Social History: Lives with her son. Denies smoking, alcohol, and illicit drug use. Objective: Vital Signs on Arrival: Temp: 97.5 F?BP: 113/71 mmHg?Pulse: 72 bpm?Resp: 18 breaths/min Most Recent Vital Signs: Temp: 97.5 F?BP: 113/71 mmHg?Pulse: 72 bpm?Resp: 18 breaths/min Admission Weight: Not specified. Physical Exam: General: No acute distress. Neck: Supple. No masses. HEENT: PERRL. Normal lids and conjunctiva. Moist mucous membranes. Oropharynx without lesions, exudates, or excessive erythema. Normal appearance of the external aspects of the nose and ears. Heart: Regular rhythm, normal rate. No murmur. Lungs: Normal respiratory effort. Clear to auscultation bilaterally. No wheezes. No crackles. Abdomen: Soft. Non-tender. Non-distended. No masses or abdominal hernia. Two abdominal drains in place. Msk: 3+ bilateral lower extremity edema with blisters containing clear fluid. Skin: Warm and dry. Bilateral lower extremity blisters with clear fluid. Neuro: Alert. No facial droop or slurred speech. Extra-ocular movements intact. Sensation intact to soft touch in all 4 limbs. Psych: Appropriate mood. Full affect. Oriented to person, place, time, and situation. Lines: Active Lines Two abdominal drains (post-cholecystectomy) Diagnostic Studies: Available diagnostic studies were reviewed personally. Significant relevant results and findings are outlined below or addressed in the Assessment and Plan above. Pertinent Imaging: Recent Results (from the past 360 hour(s)) Chest X-ray: - Impression IMPRESSION: - Mild pulmonary vascular congestion with possible trace pleural effusion and atelectasis. CT Abdomen/Pelvis (04/07/2024): - Impression IMPRESSION: - Post-surgical changes due to recent cholecystectomy with surgical drains in place. - Biliary stent in common bile duct; no evidence of complications. - Small bilateral pleural effusions with bibasilar atelectasis. - Nonspecific skin thickening and subcutaneous stranding over the left lateral c hest and abdominal wall, which could be due to dependent edema; cellulitis not excluded. - Trace pneumoperitoneum likely related to recent surgery. Echocardiogram: - Findings: - Right ventricular enlargement. - Left ventricular hypertrophy. - Biatrial enlargement. - Mild aortic sclerosis. - Ejection fraction of 25% with global hypokinesis. - Interventricular septum suggests significant pressure overload from the right ventricle. - Pulmonary hypertension noted. Labs: WBC: 15.8 - Platelet count: 410 BUN: 191 - Creatinine: 1.87 BNP: >5000 - HbA1c: 6.3% Microbiology: - Blood cultures (04/04/2024): - Klebsiella oxytoca, sensitive to all antibiotics except Zosyn, cefazolin, ampicillin, and Unasyn. - Leg cultures (04/05/2024): - Methicillin-sensitive Staphylococcus aureus (MSSA) Plan discussed with: Patient VAZQUEZ GOMEZ MD Apr 14, 2024 23:00
[2024-04-15] VITALS (9 sets, daily range): BP systolic 94–120; BP diastolic 50–66; PULSE 93–107; RESP 16–18; TEMP 97.3–98.6; O2SAT 93–99
[2024-04-15 07:19] LABS: Potassium 3.7 mmol/L (3.5-5.1)
[2024-04-15 07:20] LABS: Anion Gap 7 (5-15); Carbon Dioxide 30 mmol/L (20-31)
[2024-04-15 07:21] LABS: Calcium 8.9 mg/dL (8.7-10.4)
[2024-04-15 07:25] LABS: BUN/Creatinine Ratio 33.1 (10.0-20.0)
[2024-04-15 07:26] LABS: Blood Urea Nitrogen 39 mg/dL (9-23); Chloride 108 mmol/L (98-107); Glucose 136 mg/dL (74-106); Sodium 145 mmol/L (136-145)
[2024-04-15 07:32] LABS: Basophils # (auto) 0.1 10 ^3/uL (0-0.2); Hemoglobin 10.8 g/dL (12.2-16.2); Monocytes # (auto) 0.9 10 ^3/uL (0-1.3)
[2024-04-15 07:34] LABS: Basophils % (auto) 0.9 % (0.0-2.0); Eosinophils # (auto) 0.2 10 ^3/uL (0-0.8); Eosinophils % (auto) 1.3 % (0.0-7.0); Hematocrit 35.2 % (36.0-46.0); Lymphocytes # (auto) 0.9 10 ^3/uL (0.4-5.4); Lymphocytes % (auto) 6.4 % (10.0-50.0); Mean Corpuscular Hgb Conc. 30.6 g/dL (32.0-36.0); Monocytes % (auto) 6.6 % (0.0-12.0); Neutrophils # (auto) 11.9 10 ^3/uL (1.6-8.6); Neutrophils % (auto) 84.8 % (37.0-80.0); Nucleated Red Blood Cells % 0.2 %; Platelet Count (auto) 258 10^3/uL (140-450); Red Blood Cells 4.15 10^6/uL (4.0-5.20); Red Cell Distribution Width 19.2 % (11.8-14.3); White Blood Cell 14.1 10^3/uL (4.4-10.8)
[2024-04-15] MEDS ORDERED: HYDROcodone-ACET 5/325MG TAB PO PRN (11:15)
--- NOTE | 2024-04-15 11:43 | DVHPN2 ---
Subjective The patient is seen and examined at bedside. No complaint today. The blister of the leg is heal and resolved. Reviewed: Care Plan, H&P, Labs, Medications, Previous Orders, Radiology Changes from previous H/P or p: No Changes General: Per HPI Objective Vitals Vital Signs Date Time Temp Pulse Resp B/P (MAP) Pulse Ox O2 Delivery O2 Flow Rate FiO2 04/15/24 10:00 98 Nasal Cannula 2.0 04/15/24 10:00 28 04/15/24 09:25 118 118/65 04/15/24 08:38 97.7 18 97.7 Intake/Output Intake and Output 04/15/24 07:00 Intake Total 1200 ml Output Total 700 ml Balance 500 ml Intake Oral 1100 ml IV Total 100 ml Output Urine Total 700 ml # Bowel Movements 1 General Appearance: Alert, Cooperative, No acute distress HEENT: Atraumatic, PERRLA, EOMI, Mucous membr. moist/pink Neck: Supple Lungs: Clear to auscultation, Normal air movement Cardiovascular: Regular rate, Normal S1, Normal S2, No murmurs, Gallops, Rubs Abdomen: Normal bowel sounds, Soft, No tenderness Neuro: Cranial nerves 3-12 NL Psych/Mental Status: Mental status NL Medications Current Medications Medications Dose Ordered Sig/Darin Route Start Time Stop Time Status Last Admin Dose Admin Sodium Chloride 10 ml Q8HR IV 04/05/24 06:00 04/15/24 05:24 10 ML Vancomycin HCl 0 ml @ 0 mls/hr UD IV 04/05/24 11:15 Furosemide 40 mg DAILY IV 04/06/24 14:00 04/15/24 09:19 40 MG Metoprolol Succinate 50 mg DAILY PO 04/07/24 08:45 04/15/24 09:25 50 MG Levofloxacin 250 mg DAILY PO 04/07/24 15:30 04/15/24 09:25 250 MG Albuterol 2.5 mg Q6HPRN PRN NEB 04/07/24 15:30 Cancel Ipratropium [place] 0.5 mg Q6HPRN PRN NEB 04/07/24 15:30 Cancel Apixaban 5 mg BID PO 04/07/24 22:00 04/15/24 09:25 5 MG Midodrine 5 mg BID@0600,1800 PO 04/11/24 06:00 04/15/24 05:24 5 MG Vancomycin HCl 100 ml @ 200 mls/hr Q24H IV 04/11/24 12:00 04/14/24 11:38 200 MLS/HR Enteral Nutritional Formula 27.5 gm BIDBL PO 04/14/24 08:00 04/15/24 08:00 27.5 GM Acetaminophen/ Hydrocodone Bitart 1 tab Q4HPRN PRN PO 04/15/24 11:15 UNV Laboratory Results Laboratory Tests 04/15/24 06:54 Chemistry Test 04/15/24 06:54 Calcium Level 8.9 mg/dL (8.7-10.4) Urinalysis Test 04/06/24 03:50 Urine Color Light-brown (Yellow) Urine Clarity Ex.turbid (Clear) Urine pH 6.0 (5.0-9.0) Urine Specific [place] 1.012 (1.001-1.035) Urine Protein 1+ (Negative) H Urine Ketones Negative (Negative) Urine Blood 3+ /uL (Negative) H Urine Nitrite Negative (Negative) Urine Bilirubin Negative (Negative) Urine Urobilinogen Normal mg/dL (Negative) Urine Leukocyte Esterase 2+ /uL (Negative) Urine RBC 317 /hpf (0 - 4) Urine WBC Clumps Present /hpf (None Seen) Urine Microscopic WBC 1113 /HPF (0-5) H Urine Squamous Epithelial Cells Few /hpf (<5) Urine Bacteria None seen /hpf (None Seen) Urine Glucose Trace mg/dL (Normal) Microbiology Microbiology Date/Time Source Procedure Growth Status 04/06/24 18:19 Drainage Gram Stain - Final Complete 04/06/24 18:19 Wound Culture - Final Klebsiella oxytoca Staphylococcus aureus Enterococcus faecium Complete 04/05/24 16:30 Leg Left Gram Stain - Final Complete 04/05/24 16:30 Wound Culture - Final Staphylococcus aureus Complete 04/04/24 17:48 Blood Blood Culture - Final Klebsiella oxytoca Complete Labs and/or images reviewed: Labs reviewed by me Assessment/Plan Assessment/Plan Sepsis secondary to possible bilateral lower extremity cellulitis Bilateral Lower Extremity cellulitis with Blisters and Erosions rule out pemphigus vulgaris Lactic acidosis - continue empiric antibiotic . We will change to Levaquin 500 mg p.o. daily. Discontinuing vancomycin and Rocephin for questionable allergic reaction - blood culture: positive for Klebsiela oxytoca, sensitive to levaquin. - wound culture: skin zacarias drainage site culture ordered recommend outpatient follow with building attendant post discharge We will repeat blood culture in a.m.. Acute on chronic HFr EF - BNP is > 5000 - bilateral pedal edema 3+ - CXR shows: Mild pulmonary vascular congestion with possible trace left-sided pleural effusion. 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 - Monitor drainage from abdominal tubes - Assess for any post-operative complications --> requested for medical and surgical from [facility] Hyponatremia Hypothyroidism prediabetes Anemia transaminitis Waiting to discharge to residential home facility today. Patient had been accepted by [facility]. This medical document was created using an electronic medical record system with [employer] direct computerized dictation system. Although this document has been carefully reviewed, there may still be some phonetic and typographical errors. These areas are purely typographical due to imperfections of the software programs, and do not reflect any compromise in the patient's medical care. Plan discussed with: Patient My Orders Orders - CHELA CADENA MD Procedure Category Date Status Time Hydrocodone-Acet PHA 04/15/24 Logged 5/325mg Tab ([place] 11:15 Date of Service: Apr 15, 2024 Billing Provider: CHELA CADENA MD Common Visit Codes: [id number] INP/OBS CARE(HIGH) CHELA CADENA MD Apr 15, 2024 11:43
--- NOTE | 2024-04-15 13:14 | DVHPN2 ---
Progress Note Date Seen: Apr 15, 2024 Medical Necessity Reason Pt with a Central, PICC or Fol: No Subjective Review of Systems: HEENT:Normal Objective vital signs Vital Sign Date Time Temp Pulse Resp B/P (MAP) Pulse Ox O2 Delivery O2 Flow Rate FiO2 04/15/24 12:32 97.8 97 16 94/50 (65) 98 97.8 04/15/24 10:00 Nasal Cannula 2.0 04/15/24 10:00 28 Total Intake and Output 04/14/24 04/14/24 04/15/24 15:00 23:00 07:00 Intake Total 100 ml 300 ml 800 ml Output Total 300 ml 400 ml Balance 100 ml 0 ml 400 ml medications Current Medications Medications Dose Ordered Sig/Darin Route Start Time Stop Time Status Last Admin Dose Admin Sodium Chloride 10 ml Q8HR IV 04/05/24 06:00 04/15/24 05:24 10 ML Vancomycin HCl 0 ml @ 0 mls/hr UD IV 04/05/24 11:15 Furosemide 40 mg DAILY IV 04/06/24 14:00 04/15/24 09:19 40 MG Metoprolol Succinate 50 mg DAILY PO 04/07/24 08:45 04/15/24 09:25 50 MG Levofloxacin 250 mg DAILY PO 04/07/24 15:30 04/15/24 09:25 250 MG Albuterol 2.5 mg Q6HPRN PRN NEB 04/07/24 15:30 Cancel Ipratropium [place] 0.5 mg Q6HPRN PRN NEB 04/07/24 15:30 Cancel Apixaban 5 mg BID PO 04/07/24 22:00 04/15/24 09:25 5 MG Midodrine 5 mg BID@0600,1800 PO 04/11/24 06:00 04/15/24 05:24 5 MG Vancomycin HCl 100 ml @ 200 mls/hr Q24H IV 04/11/24 12:00 04/14/24 11:38 200 MLS/HR Enteral Nutritional Formula 27.5 gm BIDBL PO 04/14/24 08:00 04/15/24 08:00 27.5 GM Acetaminophen/ Hydrocodone Bitart 1 tab Q4HPRN PRN PO 04/15/24 11:15 Examination: GENERAL:Normal laboratory and microbiology Laboratory Tests 04/15/24 06:54 Test 04/15/24 06:54 Range/Units Serum Glucose 136 H 74-106 mg/dL Microbiology Date/Time Source Procedure Growth Status 04/06/24 18:19 Drainage Gram Stain - Final Complete 04/06/24 18:19 Wound Culture - Final Klebsiella oxytoca Staphylococcus aureus Enterococcus faecium Complete 04/05/24 16:30 Leg Left Gram Stain - Final Complete 04/05/24 16:30 Wound Culture - Final Staphylococcus aureus Complete 04/04/24 17:48 Blood Blood Culture - Final Klebsiella oxytoca Complete Problem List/Assessment/Plan Problem List/Assessment/Plan Acute kidney injury Chronic kidney disease IIIb History of Acute kidney injury needing dialysis in [place] in January 2024 currently off of dialysis Sepsis bacteremia, Klebsiella Urinary tract infection Anasarca Hypokalemia-resolved Congestive heart failure exacerbation renal function is stable no new recommendations at this time time. Monitor electrolytes avoid hypotension diuretics as needed Strict I&Os Avoidance of nephrotoxins will sign off Plan discussed with: Patient Dietary Evaluation Review Comments: 1. Consider adding Arthur BID (180kcal, 5g pro) for wound healing 2. Continue current diet regime 3. Consider appetite stimulant if poor PO intake continues Expected Outcomes/Goals: 1. Pt will meet >75% of estimated needs within 3-5 days DEVANTE IRELAND MD Apr 15, 2024 13:14
--- NOTE | 2024-04-15 14:44 | DVHPN2 ---
Progress Note - Dictate Date Seen: Apr 15, 2024 Medical Necessity Reason Pt with a Central, PICC or Fol: No Subjective Patient was seen and evaluated in follow up. No overnight events. Patient is complaining of generalized pain. Patient is awaiting for insurance auth for SNF placement. WBC 14.1, BUN 39, ORE STORAGE DRIER 1.18. Telemetry reviewed. vital signs Vital Sign Date Time Temp Pulse Resp B/P (MAP) Pulse Ox O2 Delivery O2 Flow Rate FiO2 04/15/24 12:32 97.8 97 16 94/50 (65) 98 97.8 04/15/24 10:00 Nasal Cannula 2.0 04/15/24 10:00 28 Total Intake and Output 04/14/24 04/14/24 04/15/24 15:00 23:00 07:00 Intake Total 100 ml 300 ml 800 ml Output Total 300 ml 400 ml Balance 100 ml 0 ml 400 ml medications Current Medications Medications Dose Ordered Sig/Darin Route Start Time Stop Time Status Last Admin Dose Admin Sodium Chloride 10 ml Q8HR IV 04/05/24 06:00 04/15/24 13:47 10 ML Vancomycin HCl 0 ml @ 0 mls/hr UD IV 04/05/24 11:15 Furosemide 40 mg DAILY IV 04/06/24 14:00 04/15/24 09:19 40 MG Metoprolol Succinate 50 mg DAILY PO 04/07/24 08:45 04/15/24 09:25 50 MG Levofloxacin 250 mg DAILY PO 04/07/24 15:30 04/15/24 09:25 250 MG Albuterol 2.5 mg Q6HPRN PRN NEB 04/07/24 15:30 Cancel Ipratropium [place] 0.5 mg Q6HPRN PRN NEB 04/07/24 15:30 Cancel Apixaban 5 mg BID PO 04/07/24 22:00 04/15/24 09:25 5 MG Midodrine 5 mg BID@0600,1800 PO 04/11/24 06:00 04/15/24 05:24 5 MG Vancomycin HCl 100 ml @ 200 mls/hr Q24H IV 04/11/24 12:00 04/15/24 13:30 200 MLS/HR Enteral Nutritional Formula 27.5 gm BIDBL PO 04/14/24 08:00 04/15/24 12:00 27.5 GM Acetaminophen/ Hydrocodone Bitart 1 tab Q4HPRN PRN PO 04/15/24 11:15 objective GENERAL: Awake, alert, oriented. Ill appearing. LUNGS: Clear. CARDIOVASCULAR: Heart sounds are good. ABDOMEN: Soft. EXT: +3 pitting edema. laboratory and microbiology Laboratory Tests 04/15/24 06:54 Test 04/15/24 06:54 Range/Units Serum Glucose 136 H 74-106 mg/dL Problem List Chronic Atrial fibrillation with episode of RVR. Acute on chronic combined systolic and diastolic HF. Sepsis, cellulitis. KENNY on CKD. Elevated LFTs. Assessment/Plan Continued all current supportive medical care. Eliquis. Diuretics with Lasix. Metoprolol. IV antibiotics as ordered. Additional plan as per the hospital course. Dietary Evaluation Review Comments: 1. Consider adding Arthur BID (180kcal, 5g pro) for wound healing 2. Continue current diet regime 3. Consider appetite stimulant if poor PO intake continues Expected Outcomes/Goals: 1. Pt will meet >75% of estimated needs within 3-5 days Plan discussed with: Patient TUYET PACE MD Apr 15, 2024 14:44
--- NOTE | 2024-04-15 17:28 | DVHDS2 ---
Discharge Summary Date of Admission Apr 05, 2024 at 00:22 Date of Discharge: Apr 15, 2024 Labs/Diagnostic Data: Laboratory Results Test 04/15/24 11:00 04/15/24 06:54 04/11/24 06:52 04/07/24 06:51 Vancomycin Level Trough 17.7 ug/mL (5-10) White Blood Count 14.1 10^3/uL (4.4-10.8) Red Blood Count 4.15 10^6/uL (4.0-5.20) Hemoglobin 10.8 g/dL (12.2-16.2) Hematocrit 35.2 % (36.0-46.0) Mean Corpuscular Volume 85.0 fL (80.0-100.0) Mean Corpuscular Hemoglobin 26.0 pg (28.0-32.0) Mean Corpuscular Hemoglobin Concent 30.6 g/dL (32.0-36.0) Red Cell Distribution Width 19.2 % (11.8-14.3) Platelet Count 258 10^3/uL (140-450) Mean Platelet Volume 8.2 fL (6.9-10.8) Neutrophils (%) (Auto) 84.8 % (37.0-80.0) Lymphocytes (%) (Auto) 6.4 % (10.0-50.0) Monocytes (%) (Auto) 6.6 % (0.0-12.0) Eosinophils (%) (Auto) 1.3 % (0.0-7.0) Basophils (%) (Auto) 0.9 % (0.0-2.0) Neutrophils # (Auto) 11.9 10 ^3/uL (1.6-8.6) Lymphocytes # (Auto) 0.9 10 ^3/uL (0.4-5.4) Monocytes # (Auto) 0.9 10 ^3/uL (0-1.3) Eosinophils # (Auto) 0.2 10 ^3/uL (0-0.8) Basophils # (Auto) 0.1 10 ^3/uL (0-0.2) Nucleated Red Blood Cells 0.2 % Sodium Level 145 mmol/L (136-145) Potassium Level 3.7 mmol/L (3.5-5.1) Chloride Level 108 mmol/L (98-107) Carbon Dioxide Level 30 mmol/L (20-31) Anion Gap 7 (5-15) Blood Urea Nitrogen 39 mg/dL (9-23) Creatinine 1.18 mg/dL (0.550-1.02) Glomerular Filtration Rate Calc 46 mL/min (>90) BUN/Creatinine Ratio 33.1 (10.0-20.0) Serum Glucose 136 mg/dL (74-106) Calcium Level 8.9 mg/dL (8.7-10.4) Random Vancomycin Level 15.8 ug/mL (5-10) Total Bilirubin 0.8 mg/dL (0.2-1.0) Aspartate Amino Transferase (AST) 66 U/L (13-40) Alanine Aminotransferase (ALT) 48 U/L (7-40) Alkaline Phosphatase 122 U/L (46-116) Total Protein 5.5 g/dL (5.7-8.2) Albumin 2.9 g/dL (3.2-4.8) Test 04/06/24 09:05 04/06/24 06:07 04/06/24 03:50 04/06/24 03:45 Lactic Acid Level 1.5 mmol/L (0.4-2.0) Magnesium Level 2.2 mg/dL (1.6-2.6) Urine Color Light-brown (Yellow) Urine Clarity Ex.turbid (Clear) Urine pH 6.0 (5.0-9.0) Urine Specific [place] 1.012 (1.001-1.035) Urine Protein 1+ (Negative) Urine Ketones Negative (Negative) Urine Blood 3+ /uL (Negative) Urine Nitrite Negative (Negative) Urine Bilirubin Negative (Negative) Urine Urobilinogen Normal mg/dL (Negative) Urine Leukocyte Esterase 2+ /uL (Negative) Urine RBC 317 /hpf (0 - 4) Urine WBC Clumps Present /hpf (None Seen) Urine Microscopic WBC 1113 /HPF (0-5) Urine Squamous Epithelial Cells Few /hpf (<5) Urine Bacteria None seen /hpf (None Seen) Urine Glucose Trace mg/dL (Normal) Influenza Type A Antigen Negative (Negative) Influenza Type B Antigen Negative (Negative) SARS-CoV-2 Antigen (Rapid) Negative (NEGATIVE) Test 04/05/24 07:18 04/04/24 17:48 Hemoglobin A1c 6.3 % A1C (<5.7) Thyroid Stimulating Hormone (TSH) 9.82 uIU/mL (0.55-4.78) Erythrocyte Sedimentation Rate 18 mm/hr (0-20) B-Type Natriuretic Peptide > 5000.00 pg/mL (0-100) Other Laboratory Tests 04/15/24 06:54 Final Diagnosis/Problems List deconditioning Discharge Disposition: Long Term Facility Discharge Instruct/Medications Diet: Consistent carbohydrate, Cardiac 2g Na,low cholest Activity: No Restrictions, As Tolerated Follow Up/Referral: pcp 1-2 weeks Medications: see med list Discharge Statement: "Patient was advised to return to the ER or call 911 if any headaches, dizziness, shortness of breath, chest pain, abdominal pain, bleeding, fevers, or worsening of medical condition. Patient was counseled about treatment plan, medications, possible side effects, patientverbalized understanding. All questions were answered to the best of my ability. This discharge took greater then 30 minutes in planning, reviewing documentation, counseling the patient, and discussing with other team members." ASSESSMENT ASSESSMENT Assessment deconditioning CHELA CADENA MD Apr 15, 2024 17:27
--- NOTE | 2024-04-15 23:09 | DVHPN2 ---
Progress Note - Dictate Date Seen: Apr 15, 2024 Medical Necessity Reason Pt with a Central, PICC or Fol: No Subjective Patient seen and examined at bedside. Remains on supplemental oxygen Overnight events reviewed. vital signs Vital Sign Date Time Temp Pulse Resp B/P (MAP) Pulse Ox O2 Delivery O2 Flow Rate FiO2 04/15/24 21:00 97.8 93 18 105/64 (78) 97 97.8 04/15/24 10:00 Nasal Cannula 2.0 04/15/24 10:00 28 Total Intake and Output 04/14/24 04/14/24 04/15/24 15:00 23:00 07:00 Intake Total 100 ml 300 ml 800 ml Output Total 300 ml 400 ml Balance 100 ml 0 ml 400 ml medications Current Medications Medications Dose Ordered Sig/Darin Route Start Time Stop Time Status Last Admin Dose Admin Sodium Chloride 10 ml Q8HR IV 04/05/24 06:00 04/15/24 22:20 10 ML Vancomycin HCl 0 ml @ 0 mls/hr UD IV 04/05/24 11:15 Furosemide 40 mg DAILY IV 04/06/24 14:00 04/15/24 09:19 40 MG Metoprolol Succinate 50 mg DAILY PO 04/07/24 08:45 04/15/24 09:25 50 MG Levofloxacin 250 mg DAILY PO 04/07/24 15:30 04/15/24 09:25 250 MG Albuterol 2.5 mg Q6HPRN PRN NEB 04/07/24 15:30 Cancel Ipratropium [place] 0.5 mg Q6HPRN PRN NEB 04/07/24 15:30 Cancel Apixaban 5 mg BID PO 04/07/24 22:00 04/15/24 22:20 5 MG Midodrine 5 mg BID@0600,1800 PO 04/11/24 06:00 04/15/24 18:19 5 MG Vancomycin HCl 100 ml @ 200 mls/hr Q24H IV 04/11/24 12:00 04/15/24 13:30 200 MLS/HR Enteral Nutritional Formula 27.5 gm BIDBL PO 04/14/24 08:00 04/15/24 12:00 27.5 GM Acetaminophen/ Hydrocodone Bitart 1 tab Q4HPRN PRN PO 04/15/24 11:15 objective Gen.: Patient lying in bed in no apparent distress. On supplemental oxygen. Head: Normocephalic, atraumatic. Eyes: EOMI/PERRLA. Ears: Normal hearing. Normal anatomy. Neck/trachea: Trachea midline, supple. Nose: Normal external anatomy. Mouth: Moist mucous membranes. Chest: Decreased air entry bilaterally. No wheezing or rhonchi. Cardiovascular: Positive S1, positive S2. Regular rate and rhythm. Abdomen: Positive bowel sounds in all 4 quadrants. Soft, non-tender, non- distended. : Deferred. Rectal: Deferred. Skin: Warm, dry. Intact. Extremities: 2+ radial pulses bilaterally. No lower extremity edema. Neuro: Awake, alert, oriented x3. No gross motor or sensory deficits. Cranial nerves II through XII intact. Gait not assessed. 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 Head of bed elevation Aspiration precautions Continue antibiotics Continue bronchodilators Incentive spirometry WBC trending down. Physical therapy Wound care Awaiting SNF placement Labs and imaging reviewed. Rest of plan as noted below. Plan: Supplemental oxygen Titrate to keep O2 sats above 92%. Continue antibiotics Eliquis BID Monitor renal function. Monitor electrolytes. Supplement as necessary. Monitor ins and outs. Monitor hemoglobin Monitor [place] drain output Wound care DVT prophylaxis. Prognosis: Guarded given patient's multiple co-morbidities. Rest of plan per hospitalist and other consultants. Thank you, Dr. Camacho, for allowing me to participate in this patient's care. Further recommendations will depend on the patient's clinical course. Please do not hesitate to contact me if you have any questions or concerns. This medical document was created using an electronic medical record system with [employer] computerized dictation system. Although these documentations are being carefully reviewed, there may still be some phonetic and typographical changes. The errors are purely typographical, due to imperfection on the software program, and do not reflect any compromise in the patient's medical care. Dietary Evaluation Review Comments: 1. Consider adding Arthur BID (180kcal, 5g pro) for wound healing 2. Continue current diet regime 3. Consider appetite stimulant if poor PO intake continues Expected Outcomes/Goals: 1. Pt will meet >75% of estimated needs within 3-5 days Plan discussed with: Patient, Other (PITA Parry) BETH EAGLE MD Apr 15, 2024 23:09
[2024-04-16 01:00] VITALS: BP 108/64; PULSE 102; RESP 19; TEMP 97.4; O2SAT 97
[2024-04-16 05:00] VITALS: BP 105/64; PULSE 98; RESP 17; TEMP 97.3; O2SAT 98
[2024-04-16 08:00] VITALS: O2SAT 96
[2024-04-16 08:26] LABS: Hemoglobin 11.5 g/dL (12.2-16.2)
[2024-04-16 08:28] LABS: Hematocrit 37.7 % (36.0-46.0); Mean Corpuscular Hgb Conc. 30.6 g/dL (32.0-36.0); Platelet Count (auto) 251 10^3/uL (140-450); Red Blood Cells 4.43 10^6/uL (4.0-5.20); Red Cell Distribution Width 19.2 % (11.8-14.3); White Blood Cell 13.6 10^3/uL (4.4-10.8)
[2024-04-16 08:31] LABS: Band Neutrophils % (manual) 0; Basophils % (manual) 0 (0.0-2.0); Blast Cells 0; Metamyelocytes % 0; Myelocytes % 0; Promyelocytes % 0; Reactive Lymphocytes 0
[2024-04-16 09:00] VITALS: BP 94/61; PULSE 97; RESP 18; TEMP 97.5; O2SAT 96
[2024-04-16 09:46] VITALS: BP 94/61; PULSE 97; RESP 18; TEMP 97.5; O2SAT 96
[2024-04-16 10:00] VITALS: O2SAT 96
--- NOTE | 2024-04-16 10:46 | DVHDS2 ---
Discharge Summary Date of Admission Apr 05, 2024 at 00:22 Date of Discharge: Apr 16, 2024 Admitting Diagnosis Sepsis secondary to possible bilateral lower extremity cellulitis Bilateral Lower Extremity cellulitis with Blisters and Erosions rule out drug- induced pemphigus vulgaris. Acute on chronic congestive heart failure Atrial Fibrillation KENNY on possible CKD due to VMN Post-Cholecystectomy Status due to acute cholecystitis at [facility] ( 01/2024-02/2024) - J-tube present for post-operative drainage. Hyponatremia Hypothyroidism prediabetes Anemia transaminitis Labs/Diagnostic Data: Laboratory Results Test 04/16/24 08:05 04/15/24 11:00 04/15/24 06:54 04/11/24 06:52 White Blood Count 13.6 10^3/uL (4.4-10.8) Red Blood Count 4.43 10^6/uL (4.0-5.20) Hemoglobin 11.5 g/dL (12.2-16.2) Hematocrit 37.7 % (36.0-46.0) Mean Corpuscular Volume 85.0 fL (80.0-100.0) Mean Corpuscular Hemoglobin 26.0 pg (28.0-32.0) Mean Corpuscular Hemoglobin Concent 30.6 g/dL (32.0-36.0) Red Cell Distribution Width 19.2 % (11.8-14.3) Platelet Count 251 10^3/uL (140-450) Mean Platelet Volume 8.1 fL (6.9-10.8) Neutrophils (%) (Auto) % (37.0-80.0) Lymphocytes (%) (Auto) % (10.0-50.0) Monocytes (%) (Auto) % (0.0-12.0) Basophils (%) (Auto) % (0.0-2.0) Neutrophils # (Auto) 10 ^3/uL (1.6-8.6) Lymphocytes # (Auto) 10 ^3/uL (0.4-5.4) Monocytes # (Auto) 10 ^3/uL (0-1.3) Creatinine 0.99 mg/dL (0.550-1.02) Glomerular Filtration Rate Calc 57 mL/min (>90) Vancomycin Level Trough 17.7 ug/mL (5-10) Eosinophils (%) (Auto) 1.3 % (0.0-7.0) Eosinophils # (Auto) 0.2 10 ^3/uL (0-0.8) Basophils # (Auto) 0.1 10 ^3/uL (0-0.2) Nucleated Red Blood Cells 0.2 % Sodium Level 145 mmol/L (136-145) Potassium Level 3.7 mmol/L (3.5-5.1) Chloride Level 108 mmol/L (98-107) Carbon Dioxide Level 30 mmol/L (20-31) Anion Gap 7 (5-15) Blood Urea Nitrogen 39 mg/dL (9-23) BUN/Creatinine Ratio 33.1 (10.0-20.0) Serum Glucose 136 mg/dL (74-106) Calcium Level 8.9 mg/dL (8.7-10.4) Random Vancomycin Level 15.8 ug/mL (5-10) Test 04/07/24 06:51 04/06/24 09:05 04/06/24 06:07 04/06/24 03:50 Total Bilirubin 0.8 mg/dL (0.2-1.0) Aspartate Amino Transferase (AST) 66 U/L (13-40) Alanine Aminotransferase (ALT) 48 U/L (7-40) Alkaline Phosphatase 122 U/L (46-116) Total Protein 5.5 g/dL (5.7-8.2) Albumin 2.9 g/dL (3.2-4.8) Lactic Acid Level 1.5 mmol/L (0.4-2.0) Magnesium Level 2.2 mg/dL (1.6-2.6) Urine Color Light-brown (Yellow) Urine Clarity Ex.turbid (Clear) Urine pH 6.0 (5.0-9.0) Urine Specific Manning 1.012 (1.001-1.035) Urine Protein 1+ (Negative) Urine Ketones Negative (Negative) Urine Blood 3+ /uL (Negative) Urine Nitrite Negative (Negative) Urine Bilirubin Negative (Negative) Urine Urobilinogen Normal mg/dL (Negative) Urine Leukocyte Esterase 2+ /uL (Negative) Urine RBC 317 /hpf (0 - 4) Urine WBC Clumps Present /hpf (None Seen) Urine Microscopic WBC 1113 /HPF (0-5) Urine Squamous Epithelial Cells Few /hpf (<5) Urine Bacteria None seen /hpf (None Seen) Urine Glucose Trace mg/dL (Normal) Test 04/06/24 03:45 04/05/24 07:18 04/04/24 17:48 Influenza Type A Antigen Negative (Negative) Influenza Type B Antigen Negative (Negative) SARS-CoV-2 Antigen (Rapid) Negative (NEGATIVE) Hemoglobin A1c 6.3 % A1C (<5.7) Thyroid Stimulating Hormone (TSH) 9.82 uIU/mL (0.55-4.78) Erythrocyte Sedimentation Rate 18 mm/hr (0-20) B-Type Natriuretic Peptide > 5000.00 pg/mL (0-100) Other Laboratory Tests 04/16/24 08:05 04/15/24 06:54 Brief Hx & Hospital Course: This is an 83 years old female with past medical history of atrial fibrillation came into emergency department because of bilateral lower extremity swelling and blister. The patient has this blistering for couple day. The patient unable to walk. The patient recently had cholecystectomy at [facility] and still had a MONROE output. The patient was admitted. According to family the patient was on home IV antibiotic with Rocephin and another medication. The Rocephin was discontinuing and her blister resolved. Apparently the patient is allergic to Rocephin that cause drug-induced pemphigus vulgaris. The patient was switched to IV antibiotic, vancomycin and oral Levaquin. The patient recovering from the infection however still very weak and deconditioning. The [facility]. The patient is supposed to discharge yesterday however she not was not went last night so today the patient was transfer to [facility]. Activity as tolerated. Diet low-salt low-cholesterol diet. Follow up with primary care physician 1-2 weeks. Follow up with her surgeon per schedule. Physical exam: HEENT: Normocephalic atraumatic pupils equal react to light and accommodation. Extraocular muscles intact, conjunctiva pink, oropharynx moist, no thrush, no exudate. Lymphatic: No lymphadenopathy Cardiovascular exam: S1, S2 was heard. No murmurs, rubs, gallops Lung: Clear on auscultation bilaterally, no wheeze, rale, rhonchi. GI: Abdominal soft, nondistended, nontenderness, positive bowel sounds. Extremity: No crepitus, cyanosis, edema. Pedal pulses present bilateral. Full range of motion. Skin: Normal turgor, no rash. Psych: Alert, awake. Neurology: No focal deficits, cranial nerve II to XII grossly intact. This medical document was created using an electronic medical record system with [employer] direct computerized dictation system. Although this document has been carefully reviewed, there may still be some phonetic and typographical errors. These areas are purely typographical due to imperfections of the software programs, and do not reflect any compromise in the patient's medical care. Condition at Discharge: Stable Final Diagnosis/Problems List Sepsis secondary to possible bilateral lower extremity cellulitis Bilateral Lower Extremity cellulitis with Blisters and Erosions rule out drug-induced pemphigus vulgaris. 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 Hyponatremia Hypothyroidism prediabetes Anemia transaminitis deconditioning Discharge Disposition: Custodial Facility Discharge Instruct/Medications Diet: Consistent carbohydrate, Cardiac 2g Na,low cholest Activity: No Restrictions, As Tolerated Follow Up/Referral: pcp 1-2 weeks Medications: see med list Discharge Statement: "Patient was advised to return to the ER or call 911 if any headaches, dizziness, shortness of breath, chest pain, abdominal pain, bleeding, fevers, or worsening of medical condition. Patient was counseled about treatment plan, medications, possible side effects, patientverbalized understanding. All questions were answered to the best of my ability. This discharge took greater then 30 minutes in planning, reviewing documentation, counseling the patient, and discussing with other team members." ASSESSMENT ASSESSMENT Assessment deconditioning Date of Service: Apr 16, 2024 Billing Provider: CHELA CADENA MD Common Visit Codes: 91810-NXD/OBS DISCH DAY >30min CHELA CADENA MD Apr 16, 2024 10:46
[2024-04-16 11:21] LABS: Eosinophils % (manual) 3 (0-7); Hypochromia Slight; Lymphocytes % (manual) 6 (10.0-50.0); Monocytes % (manual) 4 (0-12); Platelet Estimate Adequate; Stomatocytes Few
--- NOTE | 2024-04-16 18:07 | DVHPN2 ---
Progress Note - Dictate Date Seen: Apr 16, 2024 Medical Necessity Reason Pt with a Central, PICC or Fol: No Subjective Patient seen and examined at bedside. Remains on supplemental oxygen Overnight events reviewed. vital signs Vital Sign Date Time Temp Pulse Resp B/P (MAP) Pulse Ox O2 Delivery O2 Flow Rate FiO2 04/16/24 10:00 96 Nasal Cannula* 2 28 04/16/24 10:00 97 94/61 04/16/24 09:46 97.5 18 Total Intake and Output 04/15/24 04/15/24 04/16/24 15:00 23:00 07:00 Intake Total 100 ml 450 ml 650 ml Output Total 450 ml 400 ml Balance 100 ml 0 ml 250 ml medications Current Medications Medications Dose Ordered Sig/Darin Route Start Time Stop Time Status Last Admin Dose Admin Albuterol 2.5 mg Q6HPRN PRN NEB 04/07/24 15:30 Cancel Ipratropium [place] 0.5 mg Q6HPRN PRN NEB 04/07/24 15:30 Cancel objective Gen.: Patient lying in bed in no apparent distress. On supplemental oxygen. Head: Normocephalic, atraumatic. Eyes: EOMI/PERRLA. Ears: Normal hearing. Normal anatomy. Neck/trachea: Trachea midline, supple. Nose: Normal external anatomy. Mouth: Moist mucous membranes. Chest: Decreased air entry bilaterally. No wheezing or rhonchi. Cardiovascular: Positive S1, positive S2. Regular rate and rhythm. Abdomen: Positive bowel sounds in all 4 quadrants. Soft, non-tender, non- distended. : Deferred. Rectal: Deferred. Skin: Warm, dry. Intact. Extremities: 2+ radial pulses bilaterally. No lower extremity edema. Neuro: Awake, alert, oriented x3. No gross motor or sensory deficits. Cranial nerves II through XII intact. Gait not assessed. laboratory and microbiology Laboratory Tests 04/16/24 08:05 04/15/24 06:54 Test 04/15/24 06:54 Range/Units Serum Glucose 136 H 74-106 mg/dL Assessment/Plan Impression: ACUTE HYPOXIC RESPIRATORY FAILURE Dependence on supplemental oxygen Sepsis secondary to possible bilateral lower extremity cellulitis Bilateral Lower Extremity cellulitis with Blisters and Erosions - rule out pemphigus vulgaris Acute on chronic HFrEF Atrial Fibrillation KENNY on possible CKD due to VMN Post-Cholecystectomy Status due to acute cholecystitis at [facility] ( 01/2024-02/2024) Hyponatremia Hypothyroidism Prediabetes Anemia Transaminitis OBESITY WITH A BMI OF 34.4 Events: Remains on supplemental oxygen, 2 LPM NC Taper O2 as tolerated Assess and arrange for home oxygen Patient is out of bed to chair. Head of bed elevation Aspiration precautions Continue antibiotics Continue bronchodilators Incentive spirometry WBC trending down. Physical therapy Wound care Awaiting SNF placement Dispo per hospitalist. Pt stable for discharge from pulmonary standpoint. Labs and imaging reviewed. Rest of plan as noted below. Plan: Supplemental oxygen Titrate to keep O2 sats above 92%. Continue antibiotics Eliquis BID Monitor renal function. Monitor electrolytes. Supplement as necessary. Monitor ins and outs. Monitor hemoglobin Monitor MONROE drain output Wound care DVT prophylaxis. Prognosis: Guarded given patient's multiple co-morbidities. Rest of plan per hospitalist and other consultants. Thank you, Dr. Camacho, for allowing me to participate in this patient's care. Further recommendations will depend on the patient's clinical course. Please do not hesitate to contact me if you have any questions or concerns. This medical document was created using an electronic medical record system with [employer] dictation system. Although these documentations are being carefully reviewed, there may still be some phonetic and typographical changes. The errors are purely typographical, due to imperfection on the software program, and do not reflect any compromise in the patient's medical care. Dietary Evaluation Review Comments: 1. Consider adding Arthur BID (180kcal, 5g pro) for wound healing 2. Continue current diet regime 3. Consider appetite stimulant if poor PO intake continues Expected Outcomes/Goals: 1. Pt will meet >75% of estimated needs within 3-5 days Plan discussed with: Other (PITA Parry) BETH EAGLE MD Apr 16, 2024 18:07
--- NOTE | 2024-04-16 20:34 | DVHPN2 ---
Consult Progress Note Date Seen: Apr 15, 2024 Subjective Patient reports: Other (tolerating IV unasyn , occasionally tachycardic and irregular but mostly sinus rhythm , the blisters on her legs have resolved and cellulitic changes are also imrpoving with diarrheasis 2+ edema in legs ) Objective vital signs Vital Sign Date Time Temp Pulse Resp B/P (MAP) Pulse Ox O2 Delivery O2 Flow Rate FiO2 04/16/24 10:00 96 Nasal Cannula* 2 28 04/16/24 10:00 97 94/61 04/16/24 09:46 97.5 18 Total Intake and Output 04/15/24 04/15/24 04/16/24 15:00 23:00 07:00 Intake Total 100 ml 450 ml 650 ml Output Total 450 ml 400 ml Balance 100 ml 0 ml 250 ml medications Current Medications Medications Dose Ordered Sig/Darin Route Start Time Stop Time Status Last Admin Dose Admin Albuterol 2.5 mg Q6HPRN PRN NEB 04/07/24 15:30 Cancel Ipratropium [place] 0.5 mg Q6HPRN PRN NEB 04/07/24 15:30 Cancel Physical Exam: General: No acute distress. Neck: Supple. No masses. HEENT: PERRL. Normal lids and conjunctiva. Moist mucous membranes. Oropharynx without lesions, exudates, or excessive erythema. Normal appearance of the external aspects of the nose and ears. Heart: Regular rhythm, normal rate. No murmur. Lungs: Normal respiratory effort. Clear to auscultation bilaterally. No wheezes. No crackles. Abdomen: Soft. Non-tender. Non-distended. No masses or abdominal hernia. Two abdominal drains in place. Msk: 3+ bilateral lower extremity edema with blisters containing clear fluid. Skin: Warm and dry. Bilateral lower extremity blisters with clear fluid. Neuro: Alert. No facial droop or slurred speech. Extra-ocular movements intact. Sensation intact to soft touch in all 4 limbs. Psych: Appropriate mood. Full affect. Oriented to person, place, time, and situation. laboratory and microbiology Laboratory Tests 04/16/24 08:05 04/15/24 06:54 Test 04/15/24 06:54 Range/Units Serum Glucose 136 H 74-106 mg/dL Problem List/Assessment/Plan Problems(with codes): (1) Cellulitis of lower extremity (2) Sepsis (3) Generalized weakness Problem List/Assessment/Plan ID Problem List: - Bilateral lower extremity cellulitis - Congestive heart failure exacerbation with systolic dysfunction (EF 25%) - Atrial fibrillation - Acute kidney injury - Recent cholecystectomy with biliary stent placement and abdominal drains - Bacteremia with Klebsiella oxytoca - Leg cultures positive for Methicillin-sensitive Staphylococcus aureus (MSSA) - Diabetes mellitus (HbA1c 6.3%) - Bilateral lower extremity edema with blisters Assessment This is an 83 y.o. female with a past medical history of atrial fibrillation, recent cholecystectomy, congestive heart failure (EF 25%), and diabetes mellitus (HbA1c 6.3%), who presents with bilateral lower extremity leg swelling and blisters. The patient reports that the leg swelling and blisters have been ongoing for several days since her discharge after a recent cholecystectomy. She denies shortness of breath and chest pain. The blisters are located on her legs and contain clear fluid. She has two abdominal drains in place, which have had minimal output during this admission (only 10 cc). She reports good bowel movements and is tolerating diet. Labs are significant for leukocytosis (WBC 15.8), elevated BUN (191), creatinine (1.87), elevated BNP (>5000), and platelet count (410). Blood cultures on 04/04 showed Klebsiella oxytoca, sensitive to all antibiotics except Zosyn, cefazolin, ampicillin, and Unasyn. Leg cultures on 04/05 grew methicillin-sensitive Staphylococcus aureus. Echocardiogram revealed right ventricular enlargement, left ventricular hypertrophy, biatrial enlargement, mild aortic sclerosis, EF 25% with global hypokinesis, and pulmonary hypertension. CT abdomen/pelvis from 04/07 showed post-surgical changes due to recent cholecystectomy with surgical drains in place, biliary stent in the common bile duct, small bilateral pleural effusions with bibasilar atelectasis, nonspecific skin thickening and subcutaneous stranding over the left lateral chest and abdominal wall (could be due to dependent edema; cellulitis not excluded), and trace pneumoperitoneum likely related to recent surgery. The patient has been undergoing diuresis under cardiology with good response, with output of approximately 2.5 liters since admission. Leg blisters are improving with diuresis. 04/15: appears to be clinically imrpoving on antibiotic therapy Plan: - Follow up on repeated blood cultures - Continue IV Unasyn while inpatient to provide adequate coverage for intra- abdominal organisms, bacteremia, and wound infection. - Continue oral levofloxacin 250 mg daily to ensure adequate coverage of Klebsiella and Enterococcus. - in patient increase levofloxacin to 500 mg daily,upon discharge would keep levofloxacin 500 mg daily x14 days - Defer management of KENNY to nephrology. - Continue aggressive diuresis to improve lower extremity edema and cellulitis. - Keep blood glucose levels under 188 mg/dL to aid in infection control. - Defer management of congestive heart failure exacerbation to cardiology team. - Repeat blood cultures to ensure bacteremia has cleared. - Arrange for post-surgical follow-up with her original surgeons after discharge. Isolation Precautions: standard Plan discussed with: Other Dietary Evaluation Review Comments: 1. Consider adding Arthur BID (180kcal, 5g pro) for wound healing 2. Continue current diet regime 3. Consider appetite stimulant if poor PO intake continues Expected Outcomes/Goals: 1. Pt will meet >75% of estimated needs within 3-5 days VAZQUEZ SARGENT MD Apr 16, 2024 20:34
--- NOTE | 2024-04-16 20:34 | DVHPN2 ---
Consult Progress Note Date Seen: Apr 16, 2024 Subjective Patient reports: Other (awaiting to go to a halfway facility , still going into [facility] intermittedly and has a sacral wound thats stage 1 , non cellulitic ) Objective vital signs Vital Sign Date Time Temp Pulse Resp B/P (MAP) Pulse Ox O2 Delivery O2 Flow Rate FiO2 04/16/24 10:00 96 Nasal Cannula* 2 28 04/16/24 10:00 97 94/61 04/16/24 09:46 97.5 18 Total Intake and Output 04/15/24 04/15/24 04/16/24 15:00 23:00 07:00 Intake Total 100 ml 450 ml 650 ml Output Total 450 ml 400 ml Balance 100 ml 0 ml 250 ml medications Current Medications Medications Dose Ordered Sig/Darin Route Start Time Stop Time Status Last Admin Dose Admin Albuterol 2.5 mg Q6HPRN PRN NEB 04/07/24 15:30 Cancel Ipratropium Capac 0.5 mg Q6HPRN PRN NEB 04/07/24 15:30 Cancel Physical Exam: General: No acute distress. Neck: Supple. No masses. HEENT: PERRL. Normal lids and conjunctiva. Moist mucous membranes. Oropharynx without lesions, exudates, or excessive erythema. Normal appearance of the external aspects of the nose and ears. Heart: Regular rhythm, normal rate. No murmur. Lungs: Normal respiratory effort. Clear to auscultation bilaterally. No wheezes. No crackles. Abdomen: Soft. Non-tender. Non-distended. No masses or abdominal hernia. Two abdominal drains in place. Msk: 3+ bilateral lower extremity edema with blisters containing clear fluid. Skin: Warm and dry. Bilateral lower extremity blisters with clear fluid. Neuro: Alert. No facial droop or slurred speech. Extra-ocular movements intact. Sensation intact to soft touch in all 4 limbs. Psych: Appropriate mood. Full affect. Oriented to person, place, time, and situation. laboratory and microbiology Laboratory Tests 04/16/24 08:05 04/15/24 06:54 Test 04/15/24 06:54 Range/Units Serum Glucose 136 H 74-106 mg/dL Problem List/Assessment/Plan Problems(with codes): (1) A-fib (2) Cellulitis of lower extremity (3) Sepsis (4) Generalized weakness (5) CHF (congestive heart failure) Problem List/Assessment/Plan ID Problem List: - Bilateral lower extremity cellulitis - Congestive heart failure exacerbation with systolic dysfunction (EF 25%) - Atrial fibrillation - Acute kidney injury - Recent cholecystectomy with biliary stent placement and abdominal drains - Bacteremia with Klebsiella oxytoca - Leg cultures positive for Methicillin-sensitive Staphylococcus aureus (MSSA) - Diabetes mellitus (HbA1c 6.3%) - Bilateral lower extremity edema with blisters Assessment This is an 83 y.o. female with a past medical history of atrial fibrillation, recent cholecystectomy, congestive heart failure (EF 25%), and diabetes mellitus (HbA1c 6.3%), who presents with bilateral lower extremity leg swelling and blisters. The patient reports that the leg swelling and blisters have been ongoing for several days since her discharge after a recent cholecystectomy. She denies shortness of breath and chest pain. The blisters are located on her legs and contain clear fluid. She has two abdominal drains in place, which have had minimal output during this admission (only 10 cc). She reports good bowel movements and is tolerating diet. Labs are significant for leukocytosis (WBC 15.8), elevated BUN (191), creatinine (1.87), elevated BNP (>5000), and platelet count (410). Blood cultures on 04/04 showed Klebsiella oxytoca, sensitive to all antibiotics except Zosyn, cefazolin, ampicillin, and Unasyn. Leg cultures on 04/05 grew methicillin-sensitive Staphylococcus aureus. Echocardiogram revealed right ventricular enlargement, left ventricular hypertrophy, biatrial enlargement, mild aortic sclerosis, EF 25% with global hypokinesis, and pulmonary hypertension. CT abdomen/pelvis from 04/07 showed post-surgical changes due to recent cholecystectomy with surgical drains in place, biliary stent in the common bile duct, small bilateral pleural effusions with bibasilar atelectasis, nonspecific skin thickening and subcutaneous stranding over the left lateral chest and abdominal wall (could be due to dependent edema; cellulitis not excluded), and trace pneumoperitoneum likely related to recent surgery. The patient has been undergoing diuresis under cardiology with good response, with output of approximately 2.5 liters since admission. Leg blisters are improving with diuresis. 04/15: appears to be clinically improving on antibiotic therapy 04/16: whitecount is 13.6 Plan: - Follow up on repeated blood cultures - Continue IV Unasyn while inpatient to provide adequate coverage for intra- abdominal organisms, bacteremia, and wound infection. - Continue oral levofloxacin 250 mg daily to ensure adequate coverage of Klebsiella and Enterococcus. - in patient increase levofloxacin to 500 mg daily,upon discharge would keep levofloxacin 500 mg daily x14 days - Defer management of KENNY to nephrology. - Continue aggressive diuresis to improve lower extremity edema and cellulitis. - Keep blood glucose levels under 188 mg/dL to aid in infection control. - Defer management of congestive heart failure exacerbation to cardiology team. - Repeat blood cultures to ensure bacteremia has cleared. - Arrange for post-surgical follow-up with her original surgeons after discharge. Isolation Precautions: standard Plan discussed with: Other Dietary Evaluation Review Comments: 1. Consider adding Arthur BID (180kcal, 5g pro) for wound healing 2. Continue current diet regime 3. Consider appetite stimulant if poor PO intake continues Expected Outcomes/Goals: 1. Pt will meet >75% of estimated needs within 3-5 days VAZQUEZ SARGENT MD Apr 16, 2024 20:34
--- NOTE | 2024-04-16 21:32 | DVHPN2 ---
Progress Note - Dictate Date Seen: Apr 16, 2024 Medical Necessity Reason Pt with a Central, PICC or Fol: No Subjective Patient was seen and evaluated in follow up. Patient has no new complaints at this time. Patient denies any cardiac symptoms. Patient is cardiac stable for discharge. vital signs Vital Sign Date Time Temp Pulse Resp B/P (MAP) Pulse Ox O2 Delivery O2 Flow Rate FiO2 04/16/24 10:00 96 Nasal Cannula* 2 28 04/16/24 10:00 97 94/61 04/16/24 09:46 97.5 18 Total Intake and Output 04/15/24 04/15/24 04/16/24 15:00 23:00 07:00 Intake Total 100 ml 450 ml 650 ml Output Total 450 ml 400 ml Balance 100 ml 0 ml 250 ml medications Current Medications Medications Dose Ordered Sig/Darin Route Start Time Stop Time Status Last Admin Dose Admin Albuterol 2.5 mg Q6HPRN PRN NEB 04/07/24 15:30 Cancel Ipratropium [place] 0.5 mg Q6HPRN PRN NEB 04/07/24 15:30 Cancel objective GENERAL: Awake, alert, oriented. Ill appearing. LUNGS: Clear. CARDIOVASCULAR: Heart sounds are good. ABDOMEN: Soft. EXT: +3 pitting edema. laboratory and microbiology Laboratory Tests 04/16/24 08:05 04/15/24 06:54 Test 04/15/24 06:54 Range/Units Serum Glucose 136 H 74-106 mg/dL Problem List Chronic Atrial fibrillation with episode of RVR. Acute on chronic combined systolic and diastolic HF. Sepsis, cellulitis. KENNY on CKD. Elevated LFTs. Assessment/Plan Continued all current supportive medical care. Eliquis. Diuretics with Lasix. Metoprolol. IV antibiotics as ordered. Additional plan as per the hospital course. Dietary Evaluation Review Comments: 1. Consider adding Arhtur BID (180kcal, 5g pro) for wound healing 2. Continue current diet regime 3. Consider appetite stimulant if poor PO intake continues Expected Outcomes/Goals: 1. Pt will meet >75% of estimated needs within 3-5 days Plan discussed with: Patient TUYET PACE MD Apr 16, 2024 21:32
[2024-04-17] MEDS ORDERED: LEVO500T91 PO (08:19)
== END 2024-04-16 10:39 | DRG 871 ==
LOC: EDBD 16:23 → ER 16:23 → OVERFLOW 04-05 00:22 → WEST WING 04-05 00:27 → TELE-WESTW 04-05 20:57 → OVERFLOW 04-09 15:32 → WEST WING 04-09 15:47 → OVERFLOW 04-10 13:17 → TELE-WESTW 04-10 13:32
PROVIDERS: ADMIT Internal Medicine; ATTEND Internal Medicine
DX: A41.59 Other Gram-negative sepsis (principal); I50.43 Acute on chronic combined systolic (congestive) and diastolic (congestive) heart failure; N17.0 Acute kidney failure with tubular necrosis; J96.01 Acute respiratory failure with hypoxia; L03.116 Cellulitis of left lower limb; E87.1 Hypo-osmolality and hyponatremia; L03.115 Cellulitis of right lower limb; N39.0 Urinary tract infection, site not specified; I13.0 Hypertensive heart and chronic kidney disease with heart failure and stage 1 through stage 4 chronic kidney disease, or unspecified chronic kidney disease; L10.0 Pemphigus vulgaris; Z20.822 Contact with and (suspected) exposure to COVID-19; Z68.34 Body mass index [BMI] 34.0-34.9, adult; I48.91 Unspecified atrial fibrillation; E03.9 Hypothyroidism, unspecified; D64.9 Anemia, unspecified; E87.6 Hypokalemia; E66.9 Obesity, unspecified; N18.9 Chronic kidney disease, unspecified; E11.22 Type 2 diabetes mellitus with diabetic chronic kidney disease; S80.822A Blister (nonthermal), left lower leg, initial encounter; S80.821A Blister (nonthermal), right lower leg, initial encounter; X58.XXXA Exposure to other specified factors, initial encounter; R74.01 Elevation of levels of liver transaminase levels; Z90.49 Acquired absence of other specified parts of digestive tract; Z79.01 Long term (current) use of anticoagulants; Y93.89 Activity, other specified; Y92.89 Other specified places as the place of occurrence of the external cause; Y99.8 Other external cause status
CPT/HCPCS: 36415; 71045; 74176; 80048; 80053; 80202; 81001; 82565; 83036; 83605; 83735; 83880; 84443; 85007; 85025; 85027; 85652; 87040; 87077; 87081; 87186; 87205; 87426; 87804; 93005; 93306; 96365; 96367; 97110; 97116; 97162; 99291; G0378; J2003; J3480